=== PATIENT | female | born 1935 | race Caucasian/White ===

== ENCOUNTER → 2017-02-15 | Outpatient (CLI) | payer OTHER ==
--- NOTE | 2017-02-16 12:30 | MAMMOGRAPHY REPORT ---
UNILATERAL RIGHT DIGITAL SCREENING MAMMOGRAM TOMOSYNTHESIS WITH CAD: 02/15/2017 CLINICAL HISTORY: Asymptomatic. Personal history of breast cancer. TECHNIQUE: Breast tomosynthesis in addition to standard 2D mammography was performed. Current study was also evaluated with a Computer Aided Detection (CAD) system. Right CC and MLO 2-D and tomosynthe sis images were obtained. COMPARISON: Comparison is made to exams dated: 02/14/2016 mammogram, 02/10/2015 mammogram, 02/09/2014 m ammogram, 02/03/2013 mammogram, 02/01/2012 mammogram, and 01/29/2012 mammogram - [facility] enter. BREAST COMPOSITION: There are scattered areas of fibroglandular density in the right breast. FINDINGS: There are no suspicious masses, calcifications, or areas of architectural distortion noted in either breast. There has been no significant interval change compared to prior exams. Scattered benign-appearing calcifications are stable. IMPRESSION: ACR BI-RADS CATEGORY 2: BENIGN There is no mammographic evidence of malignancy in the right breast. A 1 year screening mammogram is recommended. The patient will receive written notification of the results. Approximately 10% of breast cancers are not detected with mammography. A negative mammographic report should not delay biopsy if a clinically suggestive mass is present. Ginny Garcia M.D. /:02/15/2017 15:07:46 Senior Php Web Developer: Kristin ROSENBERG(Walter)(M)(BD), [facility] letter sent: Normal 1/2 BI-RADS Code: ACR BI-RADS Category 2: Benign
== END | disposition home or self-care (01) ==
LOC: C.MAMM 10:20
PROVIDERS: ATTEND Family Medicine
DX: Z12.31 Encounter for screening mammogram for malignant neoplasm of breast (principal); Z08 Encounter for follow-up examination after completed treatment for malignant neoplasm; Z85.3 Personal history of malignant neoplasm of breast; Z90.12 Acquired absence of left breast and nipple

== ENCOUNTER 2020-02-23 06:12 | Inpatient (IN) ==
--- NOTE | 2020-02-19 09:05 | Anesthesiology Consultation ---
Date of Service February 19, 2020 Assessment & Plan (1) Encounter for pre-operative examination: COVID assessment: Travel/history reviewed. The patient is a low risk. Routine preop COVID testing was ordered, and the results are pending. Chart Review Chart Review: Acceptable Risk for Surgery and Patient NOT seen in Pre Admission Testing Consults Requested none History Surgery Operation Date: 02/23/20 10:00 Proposed Procedures p Right Laparoscopic Assisted Colon Resection - Eddie Villaseñor MD Height/Weight Height: 5 ft 6 in Weight: 83.915 kg Allergies Allergy/AdvReac Type Severity Reaction Status Date / Time No Known Allergies Allergy Verified 02/17/20 15:18 Medications Home Medications Medication Instructions Recorded Confirmed Last Taken atorvastatin 40 mg PO QAM 02/17/20 02/17/20 Unknown cyclosporine [Restasis] 1 drp OPHTHALMIC (EYE) Q12H 02/17/20 02/17/20 Unknown furosemide 40 mg PO QAM 02/17/20 02/17/20 Unknown losartan 50 mg PO QAM 02/17/20 02/17/20 Unknown metoprolol succinate 25 mg PO BID 02/17/20 02/17/20 Unknown potassium chloride 10 meq PO DAILY 02/17/20 02/17/20 Unknown warfarin 2.5 mg PO UD 02/17/20 02/17/20 Unknown Past Medical History Medical History Atrial fibrillation takes warfarin Colon cancer needs surgical treatment Depression Hx of breast cancer 06/1999 chemo and surgical treatment Hyperlipidemia Hypertension Urine incontinence Past Surgical History Surgical History History of knee replacement right and left Hx of colonoscopy Hx of hysterectomy Hx of mastectomy Social History Smoking Status: Never smoker Do You Dip or Chew Tobacco: No Hx Alcohol Use: No Hx Substance Use: No substance use type: does not use Testing Laboratory Results 01/27/20 WBC 8.5 Hgb 14.3 platelet 239 Na 143 K 3.9 CL 102 CO2 28 BUN 16 Cr 1.3 glucose 91 Electrocardiogram Date: 02/25/19 Findings: + AFIB @ (89 bpm) Echocardiogram Date: 02/19/18 The LV systolic function is normal LV cavity size is normal LV wall thickness is normal LA is mildly enlarged A trivial circumferential pericardial effusion is once again noted. Effusion is of non hemodynamic significance.
[~2020-02-23 06:12] MED LIST: LACTATED RINGER'S 1,000 ML IV SCH; cefOXitin 2,000 MG in DEXTROSE 5% 50 ML IV SCH
[2020-02-23 07:32] LABS: INR 1.2 (0.9-1.1); Partial Thromboplastin Ratio 1.1; Partial Thromboplastin Time 31.1 Seconds (21.0-31.0); Prothrombin Time 12.3 Seconds (9.0-12.0)
[2020-02-23] MEDS ORDERED: ePHEDrine sulfate 50 MG/ML AMP IV PRN (07:45)
[2020-02-23] MEDS ORDERED: HYDROmorphone INJ 2 MG/ML SYR/VIAL IV PRN (07:45)
[2020-02-23] MEDS ORDERED: ATROPINE SULFATE 0.1 MG/ML 10ML SYR IV PRN (07:45)
[2020-02-23] MEDS ORDERED: ONDANSETRON INJ 2 MG/ML 2 ML VIAL IV PRN ×2 (07:45→13:51)
[2020-02-23] MEDS ORDERED: fentaNYL citrate 100 MCG/2 ML VIAL ONE ×2 (07:51→11:01)
--- NOTE | 2020-02-23 07:56 | History & Physical Bridge Note ---
Date of Service February 23, 2020 History & Physical Bridge Note I have examined the patient, reviewed the History & Physical and in the interval since the performance of the History & Physical I have noted the following changes of clinical significance: no changes noted
[2020-02-23] MEDS ORDERED: LIDOCAINE HCL 2% 2 ML VIAL/AMP(20MG/ML) INFIL ONE (07:57)
[2020-02-23] MEDS ORDERED: MIDAZOLAM HCL 1 MG/ML 2ML VIAL ONE (07:57)
[2020-02-23] MEDS ORDERED: PROPOFOL IV EMULSION 10 MG/ML 20 ML VIAL IV ONE (07:57)
[2020-02-23] MEDS ORDERED: ROCURONIUM BROMIDE 10 MG/ML 5 ML VIAL IV ONE ×5 (07:57→07:58)
[2020-02-23] MEDS ORDERED: BUPIVACAINE 0.5 % 5 MG/1 ML MPF 30ML VIAL ONE (08:52)
[2020-02-23] MEDS ORDERED: DEXAMETHASONE SOD INJ 4 MG/ML VIAL ONE (09:41)
[2020-02-23] MEDS ORDERED: ONDANSETRON INJ 2 MG/ML 2 ML VIAL ONE (09:41)
[2020-02-23] MEDS ORDERED: PHENYLEPHRINE HCL 10 MG/ML VIAL ONE (09:41)
[2020-02-23] MEDS ORDERED: GLYCOPYRROLATE 0.2 MG/ML VIAL ONE (11:18)
[2020-02-23] MEDS ORDERED: NEOSTIGMINE METHYLSULFATE 5 MG/5 ML SYR ONE (11:18)
--- NOTE | 2020-02-23 12:00 | Post Operative Brief Note ---
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
[2020-02-23] MEDS: fentaNYL citrate 100 MCG/2 ML VIAL IV PRN ×4 (12:23→12:38)
--- NOTE | 2020-02-23 13:37 | Anesthesiology Progress Note ---
Date of Service February 23, 2020 Anesthesia Post Procedure Vital Signs Vital Signs: Temp Pulse Pulse Resp BP Pulse Ox 02/23/20 13:05 839 H 16 110/84 02/23/20 12:55 94 H 16 122/78 96 02/23/20 12:45 36.7 C 91 H 16 101/77 96 02/23/20 12:35 95 H 16 124/80 96 02/23/20 12:25 95 H 16 139/86 98 02/23/20 12:15 36.4 C L 106 H 16 132/96 100 02/23/20 07:03 36.5 C 95 H 18 154/94 H 98 Transfer of Care Handoff Completed per policy Notes Mental Status: alert / awake / arousable and participated in evaluation Patient Amnestic to Procedure: Yes Nausea / Vomiting: adequately controlled Pain: adequately controlled Airway Patency, RR, SpO2: stable & adequate BP & HR: stable & adequate Hydration State: stable & adequate Anesthetic Complications: no major complications apparent and Pt Satisfied with anesthetic care
[2020-02-23] MEDS ORDERED: MoRPHine SULFATE 2 MG/ML CARP IV PRN (14:01)
[2020-02-23] MEDS: D5W AND 1/2NSS + 20MEQ KCL 20 MEQ/1,000 ML BAG IV SCH ×2 (14:44→23:56)
[2020-02-23 14:56] LABS: Est GFR (African American) 25.1; Est GFR (Non-African American) 21.6
--- NOTE | 2020-02-23 19:34 | Operative Report (OR) ---
DATE OF OPERATION: 02/23/2020 PREOPERATIVE DIAGNOSIS: Carcinoma of the colon. POSTOPERATIVE DIAGNOSIS: Carcinoma of the colon. PROCEDURE: Laparoscopic assisted right colectomy. SURGEON: Eddie Villaseñor MD. LEAD RUBY ON RAILS DEVELOPER: Selene Le PA-C. FINDINGS: The tumor was palpable that had been marked and was found to be at the hepatic flexure. There were some enlarged lymph nodes in the mesentery that were all mildly enlarged. There did not appear to be extension of the mass through the colon grossly. There were significant adhesions of the omentum to the anterior abdominal wall in the midline of the upper abdomen and in the right subcostal region. There were adhesions to the liver and the gallbladder bed where the previous cholecystectomy had been performed. The liver was of normal size and contour. No gross lesions seen. The remainder of the colon was normal. TECHNIQUE: The patient was given general anesthesia and the area was prepped and draped in the usual sterile fashion. The skin superior to the umbilicus and subcutaneous tissue were anesthetized with 1% Xylocaine without epinephrine. Skin incision was made just above the umbilicus vertically. This was carried down through the subcutaneous tissue to the fascia, which was grasped with 2 Naresh clamps and incised between. The peritoneum was identified, incised, and the introducer was placed bluntly. The abdomen was then insufflated to a pressure of 15 mmHg with carbon dioxide. The two 5 mm introducers on the left side, one in the upper abdomen, one in the lower abdomen were placed. The skin at those sites was anesthetized. Skin incisions were made and the introducers were placed under direct vision. Eventually, a third introducer was placed in the right lower quadrant, but prior to that, the extensive adhesions of the omentum to the anterior abdominal wall were taken down. This was done with sharp dissection until the anterior abdominal wall was clear. There were adhesions then of the omentum to the undersurface and to the right side of the falciform ligament, which were also taken down, which freed the entire omentum. I then attempted to identify the inked portion of the colon. This was not readily apparent at first. I began at the cecum and worked superiorly, but the omentum was covering the adhesion area to the gallbladder bed. I then worked from what was visible on the right side of the transverse colon towards the left side and around the splenic flexure and down the left colon, but did not see any inked colon. I then mobilized the omentum and the colon away from the liver using the LigaSure device to divide the adhesions. That allowed me to place inferior traction on the colon. I then was able to begin in the mid transverse colon and I established a plane between the omentum, dividing the gastrocolic ligament and working then from medial to lateral towards the right, the omentum off. Once I did that, I was then able to identify the ink at the hepatic flexure. I was then able to establish continuing dissection from the colon wall posteriorly towards the mesentery and divided adhesions from the omentum. I then worked and was able to identify the duodenum. I was able to separate the mesentery of the colon away from the duodenum and worked around the hepatic flexure down towards the cecum dividing the line of Toldt and mobilizing the colon medially. Once that was accomplished, I then worked towards the medial aspect identifying the colon wall and the transverse mesocolon. Once that was accomplished, I was able to separate the appendix away from the lateral abdominal wall. I then worked down and divided some of the attachments of the terminal ileum to the posterior lateral abdominal wall on the right, but these adhesions were quite thick. At that point, I felt that I had enough of the colon mobilized. I then performed the vertical midline incision that was limited in the upper abdomen using the superior umbilical incision. I carried that dissection posteriorly through the subcutaneous tissue to the fascia and opened the fascia in the midline. I then opened the peritoneum and the abdomen was entered. All of the introducers were removed. I then was able to place medial traction on the well mobilized right colon and was then able to identify the attachments of the small bowel to the lateral abdominal wall and I was able to divide those using cautery. That completely mobilized the mesentery and the bowel wall of the terminal ileum and I was able to deliver that through the incision. I then chose sites for division of the small bowel and the colon. I the mesentery away from those sites and divided the bowel from the mesenteric to the antimesenteric border using the MEL stapler. The intervening portion of the mesentery at the base was divided using the LigaSure except for the main vessels, which were divided between Ramona clamps and ligated with 2-0 Vicryl ties and a 2-0 silk suture LigaSure. Once the entire mesentery had been divided, the specimen was delivered and sent to pathology. The area of dissection was inspected for bleeding and none was seen. A functional end-to-end anastomosis was then performed. The small bowel wall was approximated to the colon wall using interrupted 3-0 silk sutures. The antimesenteric border of each staple line was removed and a limb of the MEL stapler was placed into each lumen of the bowel. The bowel was approximated, the stapler fired and anastomosis was completed. The common opening was then closed with a TA stapler, making sure to incorporate serosa on all sides of that staple line. The additional stay sutures on the anterior surface of the anastomosis were placed. The mesenteric opening was closed with a running 2-0 Vicryl. Prior to the anastomosis being performed, it was assured that there was no twisting of the mesentery. The abdomen was then irrigated and the irrigation was removed. The anastomosis was placed back into its anatomic position and then it was covered with omentum. The liver was palpated with no abnormal findings. The NGT was in good position. The fascia of the vertical midline incision was closed with running 0 PDS. The wound was irrigated. The skin was closed with mary ellen. The skin of the three 5 mm introducers was closed with mary ellen. The estimated blood loss was 50 mL. Sponge, needle and instrument counts were correct prior to closure. The physician lead dental assistant was present during the entire case and helped with access to the abdomen, retraction during the laparoscopic portion of the case as well as management of the camera. After opening, she was helpful in retraction and in performance of the anastomosis and during closure. I attest to the content of the Intraoperative Record and any orders documented therein. Any exceptions are noted below. WESLEY
[2020-02-23] MEDS: METOPROLOL SUCC 25MG EXT REL TAB PO SCH (19:47)
[2020-02-24 05:41] LABS: Hematocrit (blood only) 37.4 % (37-47); Hemoglobin 12.1 g/dL (12.0-16.0); Immature Granulocytes # (auto) 0.03 K/uL (0.00-0.02); Immature Granulocytes % (auto) 0.2 %; Lymphocytes # (auto) 0.78 K/uL (1.2-3.4); Lymphocytes % (auto) 6.4 %; Mean Corpuscular Hemoglobin 28.1 pg (25-34); Mean Corpuscular Hgb Conc 32.4 g/dL (32-36); Mean Corpuscular Volume 86.8 fL (80-100); Mean Platelet Volume 9.9 fL (7.4-10.4); Monocytes # (auto) 1.07 K/uL (0.11-0.59); Monocytes % (auto) 8.8 %; Neutrophils # (auto) 10.29 K/uL (1.4-6.5); Neutrophils % (auto) 84.6 %; Platelet Count 223 K/uL (130-400); RDW Coefficient of Variation 14.6 % (11.5-14.5); RDW Standard Deviation 46.4 fL (36.4-46.3); Red Blood Count 4.31 M/uL (4.2-5.4); White Blood Count 12.17 K/uL (4.8-10.8)
[2020-02-24 06:26] LABS: BUN Creatinine Ratio 12.8 (10-20); Calcium 8.3 mg/dl (8.5-10.1); Creatinine Clr Calc Pharmacy 34.9 ml/min; Est GFR (African American) 41.5; Est GFR (Non-African American) 35.8; Potassium 4.5 mmol/L (3.5-5.1)
--- NOTE | 2020-02-24 07:03 | Surgery Progress Note ---
Date of Service February 24, 2020 Assessment & Plan (1) Colon cancer: Postoperative day 1 status post laparoscopic assisted right colectomy Stable Blood pressure now under control Having very little pain Peristalsis has not yet returned and will keep NG tube for today We will consult internal medicine for help with anticoagulation and hypertensive management Creatinine has returned back to baseline Subjective Postoperative day #1 status post laparoscopic assisted right colectomy Patient's abdomen is "sore" Denies nausea and vomiting No bowel movement or flatus as yet Physical Exam Gastrointestinal (Abdomen): Inspection/Auscultation: abdomen not distended Percussion/Palpation: + abdomen tender (Incisional only) and abdomen soft Peristalsis has not returned as yet Results & Data Vital Signs (Past 12 Hours) Vital Signs Temp Pulse Resp BP Pulse Ox 02/24/20 03:20 36.5 C 83 14 121/76 98 02/23/20 23:04 36.5 C 89 14 132/74 97 02/23/20 21:09 91 H 18 160/83 H 98 02/23/20 19:21 36.7 C 88 18 163/92 H 98 Laboratory Results 02/24/20 02/24/20 02/23/20 Range/Units 05:15 05:15 14:14 WBC 12.17 H (4.8-10.8) K/uL RBC 4.31 (4.2-5.4) M/uL Hgb 12.1 (12.0-16.0) g/dL Hct 37.4 (37-47) % MCV 86.8 (80-100) fL MCH 28.1 (25-34) pg MCHC 32.4 (32-36) g/dL RDW Std Deviation 46.4 H (36.4-46.3) fL RDW Coeff of Ingrid 14.6 H (11.5-14.5) % Plt Count 223 (130-400) K/uL MPV 9.9 (7.4-10.4) fL Immature Gran % (Auto) 0.2 % Neut % (Auto) 84.6 % Lymph % (Auto) 6.4 % Republic % (Auto) 8.8 % Eos % (Auto) 0.0 % Baso % (Auto) 0.0 % Neut # (Auto) 10.29 H (1.4-6.5) K/uL Lymph # (Auto) 0.78 L (1.2-3.4) K/uL Republic # (Auto) 1.07 H (0.11-0.59) K/uL Eos # (Auto) 0.00 (0-0.5) K/uL Baso # (Auto) 0.00 (0-0.2) K/uL Immature Gran # (Auto) 0.03 H (0.00-0.02) K/uL PT (9.0-12.0) Seconds INR (0.9-1.1) APTT (21.0-31.0) Seconds PTT Ratio Sodium 142 (136-145) mmol/L Potassium 4.5 (3.5-5.1) mmol/L Chloride 111 H (98-107) mmol/L Carbon Dioxide 25 (21-32) mmol/L Anion Gap 6.0 (3-11) BUN 18 (7-18) mg/dl Creatinine 1.37 H D 2.08 H (0.6-1.2) mg/dl Est Cr Clr Drug Dosing 34.9 23.0 ml/min Est GFR ( Amer) 41.5 25.1 Est GFR (Non-Af Amer) 35.8 21.6 BUN/Creatinine Ratio 12.8 (10-20) Glucose 157 H (70-99) mg/dl Calcium 8.3 L (8.5-10.1) mg/dl Blood Type Antibody Screen 02/23/20 02/23/20 Range/Units 06:58 06:57 WBC (4.8-10.8) K/uL RBC (4.2-5.4) M/uL Hgb (12.0-16.0) g/dL Hct (37-47) % MCV (80-100) fL MCH (25-34) pg MCHC (32-36) g/dL RDW Std Deviation (36.4-46.3) fL RDW Coeff of Ingrid (11.5-14.5) % Plt Count (130-400) K/uL MPV (7.4-10.4) fL Immature Gran % (Auto) % Neut % (Auto) % Lymph % (Auto) % Republic % (Auto) % Eos % (Auto) % Baso % (Auto) % Neut # (Auto) (1.4-6.5) K/uL Lymph # (Auto) (1.2-3.4) K/uL Republic # (Auto) (0.11-0.59) K/uL Eos # (Auto) (0-0.5) K/uL Baso # (Auto) (0-0.2) K/uL Immature Gran # (Auto) (0.00-0.02) K/uL PT 12.3 H (9.0-12.0) Seconds INR 1.2 H (0.9-1.1) APTT 31.1 H (21.0-31.0) Seconds PTT Ratio 1.1 Sodium (136-145) mmol/L Potassium (3.5-5.1) mmol/L Chloride (98-107) mmol/L Carbon Dioxide (21-32) mmol/L Anion Gap (3-11) BUN (7-18) mg/dl Creatinine (0.6-1.2) mg/dl Est Cr Clr Drug Dosing ml/min Est GFR ( Amer) Est GFR (Non-Af Amer) BUN/Creatinine Ratio (10-20) Glucose (70-99) mg/dl Calcium (8.5-10.1) mg/dl Blood Type A Positive Antibody Screen NEGATIVE
[2020-02-24] MEDS: ENOXAPARIN INJ 30 MG/0.3 ML SYR SQ SCH (08:15)
[2020-02-24] MEDS: D5W AND 1/2NSS + 20MEQ KCL 20 MEQ/1,000 ML BAG IV SCH ×2 (08:16→17:51)
[2020-02-24] MEDS: METOPROLOL SUCC 25MG EXT REL TAB PO SCH ×2 (08:16→20:43)
--- NOTE | 2020-02-24 09:50 | Consultation ---
Date of Consultation February 24, 2020 Assessment & Plan (1) Colon cancer: Status post laparoscopic assisted right colectomy by Dr. Villaseñor POD #1 EBL 50 mL Tolerated procedure well Pain/wound management per surgery Activity and therapy as directed by surgery NG tube currently in place, continue n.p.o. status Encourage incentive spirometry H&H 12.1 and 37.4 today, monitor (2) Atrial fibrillation: Rate controlled with metoprolol Anticoagulated with warfarin -currently on hold given postop Home regimen is 2.5 mg daily -will resume today (3) Hypertension: Blood pressure controlled this morning, 113/76 Continue metoprolol hold losartan and lasix today, re evaluate later today and in a.m. to resume (4) Leukocytosis: likely reactive in settting of post op state afebrile, asymptomatic monitor (5) Hyperlipidemia: on statin as outpt (6) CKD (chronic kidney disease), stage III: Baseline creatinine 1.3 On 02/22 creatinine 2.08, improved to 1.37 this morning Monitor, avoid nephrotoxic agents (7) DVT prophylaxis: SCD/teds, Lovenox Resume warfarin today, 2.5mg daily Follow INR, D/C Lovenox when INR > 2.0 Disposition: Per primary Follow-up: PCP Dr. Pelayo upon discharge Patient was seen and examined in collaboration with Dr. Mendez, please see addendum Thank you for this consultation. We will follow the patient with you during their hospital stay. You can reach a member of the [facility] Team 12/03 via pager @ [phone]. Attending Addendum: care coordinated with FROYLAN Marquez please refer to her notes for full details, I agree with her notes patient seen and examined, records reviewed by myself as well on exam, patient seen sitting up in bed, doing word search puzzle Comfortable, not in distress States she feels fine overall Just sore on her abdomen Denies chest pain, palpitations, dizziness, nausea vomiting no other symptoms VS noted and reviewed oriented x3 , not in distress, speaks in sentences with no effort nor accessory muscle use normal rate, irregularly irregular rhythm, no murmurs clear breath sounds bilaterally non distended, soft, nontender, dressings in place, no bleeding or discharge no bipedal edema, erythema, warmth no neuro deficits WBC 12.17 Hg 12.1 Crea 1.37 ASSESSMENT AND PLAN 84-year-old female with history of atrial fibrillation Coumadin, hypertension, CKD stage III, and other problems noted above presenting with right colectomy Status post right colectomy Follow-up pathology reports Stable overall Monitor hemoglobin Chronic atrial fibrillation on Coumadin INR 1.2 Continue usual Coumadin regimen On Lovenox subcutaneous daily for DVT prophylaxis Hypertension Hold losartan and hydrochlorothiazide to prevent hypotension Monitor blood pressure closely Kash Mendez MD other diagnoses and plan of care as per Kash Mendez MD History of Present Illness Requesting Physician: Dr. Villaseñor Reason for Consultation: Hypertension management of anticoagulation. Attending Physician: Eddie Villaseñor MD History of Present Illness This is an 84-year-old female who has significant PMH of persistent atrial fibrillation anticoagulated on warfarin, HTN, HLD, CKD stage III, history of left breast CA status post radical mastectomy, GERD who underwent elective right hemicolectomy secondary to colon mass on 02/23/2020. She tolerated the procedure well. We have been consulted for management of hypertension, CKD stage III and anticoagulation management. In regards to her atrial fibrillation she takes Coumadin 2.5 mg daily. Her last dose was 5 days prior to surgery. Further she takes metoprolol for rate control. Currently she complains of some abdominal incisional tenderness but otherwise feels well. She slept well last evening. She currently denies any fever, chills, sweats, lighth eadedness, dizziness, chest pain, shortness breath, cough, nausea, vomiting. She has not passed flatus. She currently has NG tube in place and is tolerating okay. is at bedside. Allergies Allergy/AdvReac Type Severity Reaction Status Date / Time No Known Allergies Allergy Verified 02/23/20 06:56 Home Medications Home Medications Medication Instructions Recorded Confirmed Type atorvastatin [Lipitor] 40 mg PO QAM 02/17/20 02/23/20 History cyclosporine [Restasis] 1 drp OPHTHALMIC (EYE) Q12H 02/17/20 02/23/20 History furosemide [Lasix] 40 mg PO QAM 02/17/20 02/23/20 History losartan [Cozaar] 50 mg PO QAM 02/17/20 02/23/20 History metoprolol succinate 25 mg PO BID 02/17/20 02/23/20 History potassium chloride 10 meq PO DAILY 02/17/20 02/23/20 History warfarin 2.5 mg PO UD 02/17/20 02/23/20 History Patient History Medical History Atrial fibrillation takes warfarin Colon cancer needs surgical treatment Colon cancer Depression Hx of breast cancer 06/1999 chemo and surgical treatment Hyperlipidemia Hypertension Urine incontinence Surgical History History of knee replacement right and left Hx of colonoscopy Hx of hysterectomy Hx of mastectomy S/P partial colectomy Right Family History Mother Coronary heart disease Father CHF (congestive heart failure) Brother Valvular heart disease Social History Preferred Language: Turkmen Communication Ability: Effective Lead Oracle Developer Required: No Beliefs That Will Affect Care: None marital status: Current Living Situation: Spouse Other Information That Helps Us Care for You: No Feels Safe at Home: Yes Safety Concerns: Feels Safe At This Time Smoking Status: Never smoker Do You Dip or Chew Tobacco: No ; Second Hand Exposure: No ; Tobacco Cessation Education Requested by Patient: No Hx Alcohol Use: No Hx Substance Use: No Review of Systems Review of Systems: All systems reviewed & are unremarkable except as noted in HPI & below Physical Exam Physical Exam: Constitutional: WD/WN, elderly, female, vitals as above, NAD, sitting up in bed, pleasant, conversing easily Head: Normocephalic, Atraumatic Eyes: PERRL, conjunctivae normal, anicteric sclerae ENMT: external ear and nose normal, oropharynx normal Neck: trachea midline, no thyromegaly normal visual inspection Respiratory: normal respiratory effort, lungs clear to auscultation, no wheeze, rales, rhonchi. Normal insp/exp effort, no accessory muscle use Cardiovascular: Irregular rate, irregular rhythm, 1/6 ISAAC best noted RUSB, SCD/teds in place, no edema Vessels: no JVD or carotid bruit Chest: normal inspection of chest Abdomen: Abdominal dressings CDI, absent bowel sounds, soft, nontender, no hepatosplenomegaly Musculoskeletal: no cyanosis or clubbing, extremities motor strength 5/5 Skin: no rashes, warm and dry normal turgor Neurologic: PERRL, EOMI, accommodation nl, no face palsy, no dysarthria CN's II-XI intact bilaterally and moves all extremities Psychiatric: A+Ox3, euthymic affect Lymphatic: no cervical or axillary lymphadenopathy : deferred Results & Data ([facility]) Vital Signs (Past 12 Hours) Vital Signs Temp Pulse Resp BP Pulse Ox 02/24/20 07:57 36.6 C 85 18 113/76 97 02/24/20 03:20 36.5 C 83 14 121/76 98 02/23/20 23:04 36.5 C 89 14 132/74 97 Laboratory Results Short CBC 02/23/20 02/24/20 02/24/20 Range/Units 14:14 05:15 05:15 WBC 12.17 H (4.8-10.8) K/uL Hgb 12.1 (12.0-16.0) g/dL Hct 37.4 (37-47) % Plt Count 223 (130-400) K/uL Creatinine 2.08 H 1.37 H D (0.6-1.2) mg/dl BMP 02/23/20 02/24/20 14:14 05:15 Sodium 142 Potassium 4.5 Chloride 111 H Carbon Dioxide 25 BUN 18 Creatinine 2.08 H 1.37 H D Glucose 157 H Calcium 8.3 L Diagnostic Findings Echocardiogram done 02/2018 revealed LVEF WNL, diastolic dysfunction Preoperative COVID-19 testing done 02/18/2020 which was negative Medications Administered Enoxaparin Sodium (Lovenox) 30 mg SQ Q24H JAYA Stop: 03/25/20 07:59 Last Admin: 02/24/20 08:15 Dose: 30 mg Documented by: [id number] Potassium Chloride/Dextrose/Sod Cl (D5w And 1/2nss + 20meq Kcl) 20 meq in 1,000 mls @ 110 mls/hr IV .Q9H6M JAYA Stop: 03/24/20 13:50 Last Admin: 02/24/20 08:16 Dose: 110 mls/hr Documented by: [id number] Infusion: 02/24/20 08:16 Dose: 110 mls/hr Documented by: [id number] Admin: 02/23/20 23:56 Dose: 110 mls/hr Documented by: [id number] Infusion: 02/23/20 23:50 Dose: 110 mls/hr Documented by: [id number] Admin: 02/23/20 14:44 Dose: 110 mls/hr Documented by: [id number] Metoprolol Succinate (Toprol Xl) 25 mg PO BID JAYA Stop: 03/24/20 20:59 Last Admin: 02/24/20 08:16 Dose: 25 mg Documented by: [id number] Admin: 02/23/20 19:47 Dose: 25 mg Documented by: [id number] Morphine Sulfate (Morphine Sulfate) 2 mg IV Q1H PRN PRN Reason: Pain Stop: 03/08/20 14:00 Last Admin: 02/23/20 18:27 Dose: 2 mg Documented by: [id number] Discontinued Medications Bupivacaine HCl (Marcaine 0.5% Mpf) Confirm Administered Dose 30 ml .ROUTE .STK- MED ONE Stop: 02/23/20 08:53 Last Admin: 02/23/20 09:23 Dose: 30 ml Documented by: [id number] Cefoxitin Sodium (Mefoxin) Confirm Administered Dose 1,000 mg .ROUTE .STK-MED ONE Stop: 02/23/20 10:51 Last Admin: 02/23/20 14:11 Dose: Not Given Documented by: [id number] Fentanyl Citrate (Fentanyl Citrate) 50 mcg IV Q5M PRN PRN Reason: PACU Use Only-Pain Stop: 02/23/20 15:46 Last Admin: 02/23/20 12:38 Dose: 50 mcg Documented by: [id number] Admin: 02/23/20 12:33 Dose: 50 mcg Documented by: [id number] Admin: 02/23/20 12:28 Dose: 50 mcg Documented by: [id number] Admin: 02/23/20 12:23 Dose: 50 mcg Documented by: [id number] Lactated Ringer's (Lr) 1,000 mls @ 15 mls/hr IV .Q24H JAYA Stop: 02/24/20 05:59 Last Infusion: 02/23/20 08:12 Dose: 0 mls/hr Documented by: [id number] Admin: 02/23/20 07:26 Dose: 15 mls/hr Documented by: [id number] Cefoxitin Sodium 2,000 mg/ (Dextrose) 60 mls @ 120 mls/hr IV PREOP JAYA Stop: 02/23/20 06:29 Last Infusion: 02/23/20 08:38 Dose: 0 mls/hr Documented by: [id number] Admin: 02/23/20 08:08 Dose: 120 mls/hr Documented by: [id number] ECG Rate (beats per minute): 89 Rhythm: atrial fibrillation
[2020-02-24] MEDS: WARFARIN SOD 2.5 MG TAB PO SCH (17:02)
[2020-02-25] MEDS ORDERED: NITROGLYCERIN SL 0.4 MG/TAB TAB SL STA (00:23)
[2020-02-25] MEDS: METOPROLOL SUCC 25MG EXT REL TAB PO SCH ×2 (00:51→20:47)
[2020-02-25 01:02] LABS: Basophils # (auto) 0.02 K/uL (0-0.2); Basophils % (auto) 0.2 %; Eosinophils # (auto) 0.02 K/uL (0-0.5); Eosinophils % (auto) 0.2 %; Hematocrit (blood only) 35.8 % (37-47); Hemoglobin 11.8 g/dL (12.0-16.0); Immature Granulocytes # (auto) 0.04 K/uL (0.00-0.02); Immature Granulocytes % (auto) 0.4 %; Lymphocytes # (auto) 1.38 K/uL (1.2-3.4); Lymphocytes % (auto) 12.1 %; Mean Corpuscular Hemoglobin 28.9 pg (25-34); Mean Corpuscular Volume 87.7 fL (80-100); Mean Platelet Volume 9.5 fL (7.4-10.4); Monocytes # (auto) 0.98 K/uL (0.11-0.59); Monocytes % (auto) 8.6 %; Neutrophils # (auto) 8.96 K/uL (1.4-6.5); Neutrophils % (auto) 78.5 %; Platelet Count 201 K/uL (130-400); RDW Standard Deviation 47.9 fL (36.4-46.3); Red Blood Count 4.08 M/uL (4.2-5.4)
[2020-02-25 01:14] LABS: INR 1.3 (0.9-1.1); Partial Thromboplastin Ratio 1.2; Partial Thromboplastin Time 32.7 Seconds (21.0-31.0); Prothrombin Time 13.1 Seconds (9.0-12.0)
[2020-02-25 01:28] LABS: Alanine Aminotransferase 26 U/L (12-78); Albumin Level 2.7 gm/dl (3.4-5.0); Aspartate Aminotransferase 24 U/L (15-37); BUN Creatinine Ratio 10.2 (10-20); Blood Urea Nitrogen 14 mg/dl (7-18); Calcium 8.5 mg/dl (8.5-10.1); Carbon Dioxide 27 mmol/L (21-32); Chloride 111 mmol/L (98-107); Creatinine Clr Calc Pharmacy 35.1 ml/min; Est GFR (African American) 41.9; Est GFR (Non-African American) 36.1; Glucose 134 mg/dl (70-99); Lipase 52 U/L (73-393); Magnesium 1.9 mg/dl (1.8-2.4); Potassium 4.3 mmol/L (3.5-5.1); Sodium 141 mmol/L (136-145)
[2020-02-25 01:32] LABS: Albumin Globulin Ratio 0.9 (0.9-2); Alkaline Phosphatase 96 U/L (45-117); Bilirubin,Total 0.8 mg/dl (0.2-1); Globulin 3.1 gm/dl (2.5-4.0); Total Protein 5.8 gm/dl (6.4-8.2); Troponin I < 0.015 ng/ml (0-0.045)
--- NOTE | 2020-02-25 07:03 | XRay Report ---
XR chest 1V portable CLINICAL HISTORY: low o2 COMPARISON STUDY: No previous studies for comparison. FINDINGS: Tip of the nasogastric tube is below the lower aspect of this image but at least within a b tara of the stomach there are cholecystectomy clips. There are skin mary ellen within the lower abdomen. The left axillary surgical clips. Note is made of cardiomegaly. There is no evidence for overt pulmon gladis edema. There are mild bibasilar opacities. Degenerative changes of the bilateral sternoclavicular joints are incidentally noted. Old right rib fractures are present. IMPRESSION: 1. Bibasilar opacities that favor atelectasis. An infectious process could appear similar but is cons idered less likely. 2. Cardiomegaly. No evidence for overt pulmonary edema. ACT 112: Negative or not required by law. Electronically signed by: Karlos Palacio M.D. 02/25/2020 7:02 AM
--- NOTE | 2020-02-25 07:39 | Surgery Progress Note ---
Date of Service February 25, 2020 Assessment & Plan (1) Colon cancer: Postoperative day 2 status post laparoscopic assisted right colectomy - avss - leukocytosis improved to 11K - pain controlled - no return of bowel function but peristalsis has returned - minimal NGT output overnight Plan: Discontinue NGT Start clear liquids, take slowly Will add PO Percocet and Tylenol as needed for pain continue PO home meds as per medicine service PT/OT consults SCDs for DVT prophylaxis Incentive spirometry increase activity as tolerated Dr. Villaseñor has seen and examined pt, agrees with above. Subjective abdominal pain still present, controlled was out of bed three times yesterday not passing gas or bowel movements yet no n/v Physical Exam Constitutional: WD/WN, vitals as above no acute distress and not ill appearing Respiratory: normal respiratory effort; no respiratory distress Gastrointestinal (Abdomen): Inspection/Auscultation: abdomen normal to inspection; abdomen not distended Percussion/Palpation: abdomen soft; abdomen nontender, no guarding and abdomen not rigid NGT: light bilious output in canister Skin: no rashes, warm and dry + incision (clean/dry/intact/mary ellen intact) Psychiatric: A+Ox3, euthymic affect Results & Data Vital Signs (Past 12 Hours) Vital Signs Temp Pulse Resp BP Pulse Ox 02/25/20 07:06 36.8 C 88 20 124/80 97 02/25/20 00:16 101 H 20 125/81 02/24/20 22:35 36.6 C 93 H 16 143/89 H 91 02/24/20 20:39 85 16 141/97 H 98 Laboratory Results 02/25/20 02/25/20 02/25/20 Range/Units 00:51 00:51 00:51 WBC 11.40 H (4.8-10.8) K/uL RBC 4.08 L (4.2-5.4) M/uL Hgb 11.8 L (12.0-16.0) g/dL Hct 35.8 L (37-47) % MCV 87.7 (80-100) fL MCH 28.9 (25-34) pg MCHC 33.0 (32-36) g/dL RDW Std Deviation 47.9 H (36.4-46.3) fL RDW Coeff of Ingrid 15.0 H (11.5-14.5) % Plt Count 201 (130-400) K/uL MPV 9.5 (7.4-10.4) fL Immature Gran % (Auto) 0.4 % Neut % (Auto) 78.5 % Lymph % (Auto) 12.1 % [place] % (Auto) 8.6 % Eos % (Auto) 0.2 % Baso % (Auto) 0.2 % Neut # (Auto) 8.96 H (1.4-6.5) K/uL Lymph # (Auto) 1.38 (1.2-3.4) K/uL [place] # (Auto) 0.98 H (0.11-0.59) K/uL Eos # (Auto) 0.02 (0-0.5) K/uL Baso # (Auto) 0.02 (0-0.2) K/uL Immature Gran # (Auto) 0.04 H (0.00-0.02) K/uL PT 13.1 H (9.0-12.0) Seconds INR 1.3 H (0.9-1.1) APTT 32.7 H (21.0-31.0) Seconds PTT Ratio 1.2 Sodium 141 (136-145) mmol/L Potassium 4.3 (3.5-5.1) mmol/L Chloride 111 H (98-107) mmol/L Carbon Dioxide 27 (21-32) mmol/L Anion Gap 3.0 (3-11) BUN 14 (7-18) mg/dl Creatinine 1.36 H (0.6-1.2) mg/dl Est Cr Clr Drug Dosing 35.1 ml/min Est GFR ( Amer) 41.9 Est GFR (Non-Af Amer) 36.1 BUN/Creatinine Ratio 10.2 (10-20) Glucose 134 H (70-99) mg/dl Calcium 8.5 (8.5-10.1) mg/dl Magnesium 1.9 (1.8-2.4) mg/dl Total Bilirubin 0.8 (0.2-1) mg/dl AST 24 (15-37) U/L ALT 26 (12-78) U/L Alkaline Phosphatase 96 (45-117) U/L Troponin I < 0.015 (0-0.045) ng/ml Total Protein 5.8 L (6.4-8.2) gm/dl Albumin 2.7 L (3.4-5.0) gm/dl Globulin 3.1 (2.5-4.0) gm/dl Albumin/Globulin Ratio 0.9 (0.9-2) Lipase 52 L (73-393) U/L
[2020-02-25] MEDS: ENOXAPARIN INJ 30 MG/0.3 ML SYR SQ SCH (09:22)
--- NOTE | 2020-02-25 10:30 | Hospitalist Progress Note ---
Date of Service February 25, 2020 Assessment & Plan (1) Colon cancer: Status post laparoscopic assisted right colectomy by Dr. Villaseñor POD #2 Pain/wound management per surgery Pain appear well controlled Activity and therapy as directed by surgery Currently on clear diet Monitor tolerance Hb stable (2) Atrial fibrillation: Persistent Afib Rate controlled with metoprolol Warfarin resumed yesterday at home dose of 2.5 mg daily INR is 1.3 today Currently on lovenox daily for now (3) Hypertension: Well controlled Continue metoprolol Continue to hold losartan and lasix for now Plan to resume losartan if BP starts going up since GERARD is resolved (4) Leukocytosis: Likely reactive in settting of post op state Afebrile, asymptomatic Currently improving (5) Hyperlipidemia: Continue statin (6) CKD (chronic kidney disease), stage III: GERARD on CKD3 on admission GERARD now resolved Baseline creatinine 1.3 On 02/22 creatinine 2.08, now 1.36 this morning Monitor Cr Avoid nephrotoxic agents (7) DVT prophylaxis: SCD/teds, Lovenox Continue warfarin 2.5mg daily Follow INR, D/C Lovenox when INR > 2.0 Thank you for this consultation. We will follow the patient with you during their hospital stay. You can reach a member of the [facility] Hospitalist Team 12/03 via pager @ [phone]. Admission and Anticipated Discharge Date Admission Date: February 23, 2020 Subjective Patient seen and examined Patient reports no pain this AM Denied any chest pain, shortness of breath, cough, palpitations, dizziness Denied any fevers, chills, nausea and vomiting Reported having breakfast this AM Has no had BM or passed flatus yet Denied any dysuria, frequency, urgency, hematuria Physical Exam Constitutional: + well hydrated; no acute distress Elderly woman Eyes: PERRL, conjunctivae normal, anicteric sclerae ENMT: external ear and nose normal, oropharynx normal Respiratory: normal respiratory effort, lungs clear to auscultation Cardiovascular: Irregularly irregular pulse, S1-2, no pedal edam Gastrointestinal (Abdomen): Clean surgical mary ellen No obvious drainage No tenderness Hypoactive bowel sounds Musculoskeletal: Extremities: no cyanosis No pedal edema Neurologic: PERRL, EOMI, accommodation nl, no face palsy, no dysarthria Psychiatric: A+Ox3, euthymic affect Results & Data Results & Data ([facility]) Vital Signs (Past 12 Hours) Vital Signs Temp Pulse Resp BP Pulse Ox 02/25/20 07:06 36.8 C 88 20 124/80 97 02/25/20 00:16 101 H 20 125/81 02/24/20 22:35 36.6 C 93 H 16 143/89 H 91 Laboratory Results Laboratory Results - last 24 hr 02/25/20 02/25/20 02/25/20 00:51 00:51 00:51 WBC 11.40 H RBC 4.08 L Hgb 11.8 L Hct 35.8 L MCV 87.7 MCH 28.9 MCHC 33.0 RDW Std Deviation 47.9 H RDW Coeff of Ingrid 15.0 H Plt Count 201 MPV 9.5 Immature Gran % (Auto) 0.4 Neut % (Auto) 78.5 Lymph % (Auto) 12.1 [place] % (Auto) 8.6 Eos % (Auto) 0.2 Baso % (Auto) 0.2 Neut # (Auto) 8.96 H Lymph # (Auto) 1.38 [place] # (Auto) 0.98 H Eos # (Auto) 0.02 Baso # (Auto) 0.02 Immature Gran # (Auto) 0.04 H PT 13.1 H INR 1.3 H APTT 32.7 H PTT Ratio 1.2 Sodium 141 Potassium 4.3 Chloride 111 H Carbon Dioxide 27 Anion Gap 3.0 BUN 14 Creatinine 1.36 H Est Cr Clr Drug Dosing 35.1 Est GFR ( Amer) 41.9 Est GFR (Non-Af Amer) 36.1 BUN/Creatinine Ratio 10.2 Glucose 134 H Calcium 8.5 Magnesium 1.9 Total Bilirubin 0.8 AST 24 ALT 26 Alkaline Phosphatase 96 Troponin I < 0.015 Total Protein 5.8 L Albumin 2.7 L Globulin 3.1 Albumin/Globulin Ratio 0.9 Lipase 52 L
[2020-02-25] MEDS ORDERED: OXYCODONE/ACETAMINOPHEN 5mg/325mg TAB PO PRN (13:47)
[2020-02-25] MEDS ORDERED: ACETAMINOPHEN 325 MG TAB PO PRN (13:47)
[2020-02-25] MEDS: WARFARIN SOD 2.5 MG TAB PO SCH (15:20)
[2020-02-26 06:23] LABS: Hemoglobin 10.4 g/dL (12.0-16.0); Mean Corpuscular Hemoglobin 28.6 pg (25-34); Mean Corpuscular Hgb Conc 32.5 g/dL (32-36); Mean Corpuscular Volume 87.9 fL (80-100); Platelet Count 185 K/uL (130-400); RDW Coefficient of Variation 14.7 % (11.5-14.5); RDW Standard Deviation 47.5 fL (36.4-46.3); Red Blood Count 3.64 M/uL (4.2-5.4); White Blood Count 8.17 K/uL (4.8-10.8)
[2020-02-26 06:33] LABS: INR 1.5 (0.9-1.1); Prothrombin Time 15.1 Seconds (9.0-12.0)
[2020-02-26 07:00] LABS: BUN Creatinine Ratio 12.2 (10-20); Calcium 8.2 mg/dl (8.5-10.1); Creatinine Clr Calc Pharmacy 47.3 ml/min; Est GFR (Non-African American) 51.8; Potassium 4.1 mmol/L (3.5-5.1)
[2020-02-26] MEDS: METOPROLOL SUCC 25MG EXT REL TAB PO SCH ×2 (08:12→21:11)
[2020-02-26] MEDS: ENOXAPARIN INJ 30 MG/0.3 ML SYR SQ SCH (08:12)
--- NOTE | 2020-02-26 09:22 | Surgery Progress Note ---
Date of Service February 26, 2020 Assessment & Plan (1) Colon cancer: Postoperative day 3 status post laparoscopic assisted right colectomy - avss - leukocytosis resolved - postop pain minimal more soreness - no return of bowel function but peristalsis has returned Plan: path reviewed with patient, will need oncology consultation once discharged advance to full liquids, take slowly continue PO Percocet and Tylenol as needed for pain continue PO home meds as per medicine service PT/OT SCDs, Lovenox for DVT prophylaxis Incentive spirometry increase activity as tolerated Dr. Villaseñor has seen and examined pt, agrees with above. Subjective feeling good, but I haven't had a bowel movement or passed gas tolerating clear liquids no n/v no pain just soreness worked with PT yesterday, walked hallway Physical Exam Constitutional: WD/WN, vitals as above no acute distress Respiratory: normal respiratory effort; no respiratory distress Gastrointestinal (Abdomen): Inspection/Auscultation: abdomen normal to inspection and normal bowel sounds; abdomen not distended Percussion/Palpation: abdomen soft; abdomen nontender, no guarding and abdomen not rigid Skin: no rashes, warm and dry + incision (clean/dry/intact/mary ellen intact) Psychiatric: A+Ox3, euthymic affect Results & Data Vital Signs (Past 12 Hours) Vital Signs Temp Pulse Resp BP Pulse Ox 02/26/20 07:10 36.7 C 98 H 16 130/79 95 Laboratory Results 02/26/20 02/26/20 02/26/20 Range/Units 05:56 05:56 05:56 WBC 8.17 (4.8-10.8) K/uL RBC 3.64 L (4.2-5.4) M/uL Hgb 10.4 L (12.0-16.0) g/dL Hct 32.0 L (37-47) % MCV 87.9 (80-100) fL MCH 28.6 (25-34) pg MCHC 32.5 (32-36) g/dL RDW Std Deviation 47.5 H (36.4-46.3) fL RDW Coeff of Ingrid 14.7 H (11.5-14.5) % Plt Count 185 (130-400) K/uL MPV 10.0 (7.4-10.4) fL PT 15.1 H (9.0-12.0) Seconds INR 1.5 H (0.9-1.1) Sodium 144 (136-145) mmol/L Potassium 4.1 (3.5-5.1) mmol/L Chloride 114 H (98-107) mmol/L Carbon Dioxide 25 (21-32) mmol/L Anion Gap 5.0 (3-11) BUN 12 (7-18) mg/dl Creatinine 1.01 (0.6-1.2) mg/dl Est Cr Clr Drug Dosing 47.3 ml/min Est GFR ( Amer) 60.0 Est GFR (Non-Af Amer) 51.8 BUN/Creatinine Ratio 12.2 (10-20) Glucose 82 (70-99) mg/dl Calcium 8.2 L (8.5-10.1) mg/dl Diagnostic Findings PATHOLOGY: FINAL DIAGNOSIS COLON, RIGHT AND PORTION TRANSVERSE; RESECTION: 1. INVASIVE ADENOCARCINOMA, MODERATELY DIFFERENTIATED. 2. TUMOR MEASURES 3.5 X 3.5 X 1 CM. 3. TUMOR INFILTRATES THROUGH ENTIRE THICKNESS OF BOWEL WALL INTO PERICOLIC SOFT TISSUE. 4. NO LYMPHOVASCULAR INVASION IDENTIFIED. 5. MARGINS OF RESECTION NEGATIVE FOR TUMOR. 6. LIPOMAS (2), ASCENDING COLON AND ILEOCECAL VALVE. 7. FIVE OF SEVENTEEN (5/17) PERICOLIC LYMPH NODES POSITIVE FOR METASTATIC CARCINOMA. 8. SINGLE SOFT TISSUE DEPOSIT IDENTIFIED. 9. VERMIFORM APPENDIX WITHOUT PATHOLOGIC CHANGE.
--- NOTE | 2020-02-26 12:58 | Hospitalist Progress Note ---
Date of Service February 26, 2020 Assessment & Plan (1) Colon cancer: Status post laparoscopic assisted right colectomy by Dr. Villaseñor POD #3 Pain/wound management per surgery Pain appear well controlled Activity and therapy as directed by surgery Currently on clear diet. Advance to full liquid Monitor tolerance and return of bowel function Hb dropped to 10.4. Possibly post surgical anemia + IVF (2) Atrial fibrillation: Persistent Afib Rate controlled with metoprolol Warfarin resumed post op at home dose of 2.5 mg daily INR is 1.5 today Currently on lovenox daily for now (3) Hypertension: Well controlled Continue metoprolol Continue to hold losartan and lasix for now Plan to resume losartan if BP starts going up since GERARD is resolved (4) Leukocytosis: Likely reactive in settting of post op state Afebrile, asymptomatic Resolved (5) Hyperlipidemia: Continue statin (6) CKD (chronic kidney disease), stage III: GERARD on CKD3 on admission GERARD now resolved Baseline creatinine 1.3 On 02/22 creatinine 2.08, now 1.01 this morning Monitor Cr Avoid nephrotoxic agents (7) DVT prophylaxis: SCD/teds, Lovenox Continue warfarin 2.5mg daily Follow INR, D/C Lovenox when INR > 2.0 [facility] via pager @ [phone]. Admission and Anticipated Discharge Date Admission Date: February 23, 2020 Subjective Patient seen and examined Reports no complaints this AM Denied any pain Yet to pass flatus or move bowel Tolerating po liquid diet Physical Exam Constitutional: + well hydrated; no acute distress Eyes: PERRL, conjunctivae normal, anicteric sclerae ENMT: external ear and nose normal, oropharynx normal Respiratory: normal respiratory effort, lungs clear to auscultation Gastrointestinal (Abdomen): Clean surgical site. No tenderness. Bowel sounds normoactive Musculoskeletal: Extremities: no cyanosis Neurologic: PERRL, EOMI, accommodation nl, no face palsy, no dysarthria Psychiatric: A+Ox3, euthymic affect Results & Data [facility] Vital Signs (Past 12 Hours) Vital Signs Temp Pulse Resp BP Pulse Ox 02/26/20 07:10 36.7 C 98 H 16 130/79 95 Laboratory Results Laboratory Results - last 24 hr 02/26/20 02/26/20 02/26/20 05:56 05:56 05:56 WBC 8.17 RBC 3.64 L Hgb 10.4 L Hct 32.0 L MCV 87.9 MCH 28.6 MCHC 32.5 RDW Std Deviation 47.5 H RDW Coeff of Ingrid 14.7 H Plt Count 185 MPV 10.0 PT 15.1 H INR 1.5 H Sodium 144 Potassium 4.1 Chloride 114 H Carbon Dioxide 25 Anion Gap 5.0 BUN 12 Creatinine 1.01 Est Cr Clr Drug Dosing 47.3 Est GFR ( Amer) 60.0 Est GFR (Non-Af Amer) 51.8 BUN/Creatinine Ratio 12.2 Glucose 82 Calcium 8.2 L
[2020-02-26] MEDS: WARFARIN SOD 2.5 MG TAB PO SCH (15:47)
[2020-02-27 06:19] LABS: INR 1.7 (0.9-1.1); Prothrombin Time 17.2 Seconds (9.0-12.0)
[2020-02-27 06:43] LABS: BUN Creatinine Ratio 9.8 (10-20); Calcium 8.2 mg/dl (8.5-10.1); Creatinine Clr Calc Pharmacy 43.4 ml/min; Est GFR (African American) 54.1; Est GFR (Non-African American) 46.7; Potassium 4.1 mmol/L (3.5-5.1)
--- NOTE | 2020-02-27 07:30 | Surgery Progress Note ---
Date of Service February 27, 2020 Assessment & Plan (1) Colon cancer: Postoperative day #4 status post laparoscopic-assisted right colon resection. She is doing very well Advance to low fiber diet today Urine output is good and creatinine is at baseline If acceptable with internal medicine relative to her anticoagulation consider discharge for tomorrow Postoperative activity restrictions discussed Subjective Postoperative day #4 status post laparoscopic assisted right colectomy Patient had bowel movement yesterday Denies abdominal pain Tolerated full liquid diet Ambulated in the halls with PT Denies nausea and vomiting Physical Exam Gastrointestinal (Abdomen): Inspection/Auscultation: normal bowel sounds and + abdominal surgical incision (Clean, dry and intact); abdomen not distended Percussion/Palpation: abdomen soft; abdomen nontender Results & Data Vital Signs (Past 12 Hours) Vital Signs Temp Pulse Resp BP Pulse Ox 02/26/20 22:58 36.7 C 75 16 112/72 98 02/26/20 21:10 81 130/79 Laboratory Results 02/27/20 02/27/20 02/23/20 Range/Units 05:04 05:04 Unknown PT 17.2 H (9.0-12.0) Seconds INR 1.7 H (0.9-1.1) Sodium 145 (136-145) mmol/L Potassium 4.1 (3.5-5.1) mmol/L Chloride 114 H (98-107) mmol/L Carbon Dioxide 28 (21-32) mmol/L Anion Gap 3.0 (3-11) BUN 11 (7-18) mg/dl Creatinine 1.10 (0.6-1.2) mg/dl Est Cr Clr Drug Dosing 43.4 ml/min Est GFR ( Amer) 54.1 Est GFR (Non-Af Amer) 46.7 BUN/Creatinine Ratio 9.8 L (10-20) Glucose 83 (70-99) mg/dl Calcium 8.2 L (8.5-10.1) mg/dl Misc Genetic Test Pending
[2020-02-27] MEDS: METOPROLOL SUCC 25MG EXT REL TAB PO SCH ×2 (08:29→20:28)
[2020-02-27] MEDS: ENOXAPARIN INJ 30 MG/0.3 ML SYR SQ SCH (08:29)
--- NOTE | 2020-02-27 11:01 | Hospitalist Progress Note ---
Date of Service February 27, 2020 Assessment & Plan (1) Colon cancer: Status post laparoscopic assisted right colectomy by Dr. Villaseñor POD #3 Pain/wound management per surgery Activity and therapy as directed by surgery Bowel function returned. Having BM Hb dropped to 10.4. Possibly post surgical anemia + IVF (2) Atrial fibrillation: Persistent Afib Rate controlled with metoprolol Warfarin resumed post op at home dose of 2.5 mg daily INR is 1.7 today Currently on lovenox daily for now Ok to discharge tomorrow from medical perspective (3) Hypertension: BP increasing Resume home losartan and lasix (4) Leukocytosis: Likely reactive in settting of post op state Afebrile, asymptomatic Resolved (5) Hyperlipidemia: Continue statin (6) CKD (chronic kidney disease), stage III: GERARD on CKD3 on admission GERARD now resolved Baseline creatinine 1.3 On 02/22 creatinine 2.08, now 1.10 this morning Monitor Cr Avoid nephrotoxic agents (7) DVT prophylaxis: SCD/teds, Lovenox Continue warfarin 2.5mg daily Follow INR, D/C Lovenox when INR > 2.0 Can be discharged home tomorrow from medical perspective Admission and Anticipated Discharge Date Admission Date: February 23, 2020 Subjective Patient seen and examined Denied any complaints Has started moving bowel Tolerating diet well Physical Exam Constitutional: + well hydrated; no acute distress Eyes: PERRL, conjunctivae normal, anicteric sclerae ENMT: external ear and nose normal, oropharynx normal Respiratory: normal respiratory effort, lungs clear to auscultation Gastrointestinal (Abdomen): normal bowel sounds, soft, nontender, no hepatosplenomegaly Clean surgical site Musculoskeletal: Extremities: no cyanosis Neurologic: PERRL, EOMI, accommodation nl, no face palsy, no dysarthria Psychiatric: A+Ox3, euthymic affect Results & Data Results & Data ([facility]) Vital Signs (Past 12 Hours) Vital Signs Temp Pulse Pulse Resp BP Pulse Ox 02/27/20 08:28 87 147/91 H 02/27/20 07:49 36.8 C 75 18 119/77 98 Laboratory Results Laboratory Results - last 24 hr 02/27/20 02/27/20 05:04 05:04 PT 17.2 H INR 1.7 H Sodium 145 Potassium 4.1 Chloride 114 H Carbon Dioxide 28 Anion Gap 3.0 BUN 11 Creatinine 1.10 Est Cr Clr Drug Dosing 43.4 Est GFR ( Amer) 54.1 Est GFR (Non-Af Amer) 46.7 BUN/Creatinine Ratio 9.8 L Glucose 83 Calcium 8.2 L
[2020-02-27] MEDS: WARFARIN SOD 2.5 MG TAB PO SCH (15:26)
[2020-02-28 06:53] LABS: INR 1.9 (0.9-1.1); Prothrombin Time 19.2 Seconds (9.0-12.0)
[2020-02-28] MEDS ORDERED: FUROSEMIDE 40 MG TAB PO SCH (09:00)
[2020-02-28] MEDS ORDERED: LOSARTAN POTASSIUM 50 MG TAB PO SCH (09:00)
[2020-02-28] MEDS: ENOXAPARIN INJ 30 MG/0.3 ML SYR SQ SCH (09:27)
[2020-02-28] MEDS: METOPROLOL SUCC 25MG EXT REL TAB PO SCH (09:28)
--- NOTE | 2020-02-28 09:48 | Hospitalist Progress Note ---
Date of Service February 28, 2020 Assessment & Plan (1) Colon cancer: Status post laparoscopic assisted right colectomy by Dr. Villaseñor POD #4 Pain/wound management per surgery Activity and therapy as directed by surgery Bowel function returned. Having BM Hb dropped to 10.4. Possibly post surgical anemia + IVF (2) Atrial fibrillation: Persistent Afib Rate controlled with metoprolol Warfarin resumed post op at home dose of 2.5 mg daily INR is 1.9 today Discharge on home dose of warfarin Discontinue lovenox Patient advised to follow up outpatient for monitoring of INR. She stated she will make appointment on her own on discharge (3) Hypertension: Discharge on home dose of losartan and lasix (4) Leukocytosis: Likely reactive in settting of post op state Afebrile, asymptomatic Resolved (5) Hyperlipidemia: Continue statin (6) CKD (chronic kidney disease), stage III: GERARD on CKD3 on admission GERARD now resolved Baseline creatinine 1.3 On 02/22 creatinine 2.08, down to 1.10 yesterday Avoid nephrotoxic agents (7) DVT prophylaxis: Discontinue lovenox Discharge on home dose of warfarin Patient to follow up with PCP Admission and Anticipated Discharge Date Admission Date: February 23, 2020 Subjective Patient seen and examined Reports no abd pain Tolerating po very well. Having regular bowel movement Physical Exam Constitutional: + well hydrated; no acute distress Eyes: PERRL, conjunctivae normal, anicteric sclerae ENMT: external ear and nose normal, oropharynx normal Respiratory: normal respiratory effort, lungs clear to auscultation Gastrointestinal (Abdomen): normal bowel sounds, soft, nontender, no hepatosplenomegaly Clean surgical site Musculoskeletal: Extremities: no cyanosis Neurologic: PERRL, EOMI, accommodation nl, no face palsy, no dysarthria Psychiatric: A+Ox3, euthymic affect Results & Data Results & Data ([facility]) Vital Signs (Past 12 Hours) Vital Signs Temp Pulse Resp BP Pulse Ox 02/28/20 08:05 36.7 C 79 16 142/73 H 95 02/27/20 23:21 36.7 C 89 18 126/92 96 Laboratory Results Laboratory Results - last 24 hr 02/28/20 06:31 PT 19.2 H INR 1.9 H
--- NOTE | 2020-02-28 09:55 | Surgery Progress Note ---
Date of Service February 28, 2020 Assessment & Plan (1) Colon cancer: POD#5 lap assisted right colon resection -progressing very well, patient wants to go home -incisions c/d/i - INR 1.9 today. Spoke with medicine who is okay with pt discharging on home warfarin dose, no lovenox bridge needed. Will ask her to follow up in coumadin clinic next sunday. -RN will leave patient with hand-out for low fiber diet -pain is well controlled on tylenol -stable for discharge to home today -she will plan follow up with Dr. Villaseñor Subjective Patient doing well, wants to go home. Offers no complaints. Tolerating diet. Pain well controlled. Physical Exam Physical Exam: awake/alert Gastrointestinal (Abdomen): Inspection/Auscultation: + abdominal surgical incision (c/d/i with mary ellen in place, no sign of infection) Percussion/Palpation: abdomen soft; abdomen nontender Results & Data Vital Signs (Past 12 Hours) Vital Signs Temp Pulse Resp BP Pulse Ox 02/28/20 08:05 36.7 C 79 16 142/73 H 95 02/27/20 23:21 36.7 C 89 18 126/92 96 PG Care Time/CCT Total # of Minutes Spent Total Time Spent with Patient: Total time spent is greater than 50% in coordination of care (as documented) at patient's floor/unit and/or counseling patient: Coding Level of Care Code 16080 Subseq Hosp Care Lvl 1 Diagnoses Colon cancer C18.9
--- NOTE | 2020-03-01 09:52 | Discharge Summary ---
Date of Service March 01, 2020 Admission HPI Per Admitting Provider Patient presented to [facility] for elective laparoscopic assisted right colectomy for biopsed proved colon cancer as an outpatient with Dr. Villaseñor. Principal Diagnosis Colon cancer Discharge Data Allergies Allergy/AdvReac Type Severity Reaction Status Date / Time No Known Allergies Allergy Verified 02/23/20 06:56 Consultations 02/24/20 07:10 Consult Hospitalist Routine Procedures Performed Operation Date: 02/23/20 08:20 Actual Procedures p Right Laparoscopic Assisted Colon Resection(Right) - Eddie Villaseñor MD Hospital Course (1) Colon cancer: Patient was taken to operating room for laparoscopic assisted right colectomy by Dr. Villaseñor. Patient tolerated procedure well and was transferred to recovery room and then to medical/surgical floor for postoperative care. NGT was placed intraoperatively and kept postoperatively. She was started IV fluids, IV Morphine prn pain, IV Zofran prn nausea, SCDs and Lovenox for DVT prophylaxis. POD # 1 avss, minimal postop pain, peristalsis had not returned yet, NGT was kept, Kept NPO. Medicine was consulted to help with hypertensive and coumadin management. Coumadin was restarted on POD # 1. POD # 2, avss, pain minimal, peristalsis returned, NGT removed clear liquids started. Encouraged ambulation. PT/OT ordered. POD # 3 avss, pain minimal, passing flatus, diet advanced to full liquids. POD # 4 avss, bowel function returned. Diet advanced to low fiber diet. INR was 1.7. POD # 5, avss, pain controlled with po Tylenol, tolerated low fiber diet. INR was 1.9. Patient was discharged home on POD # 5 in stable condition with home dose of Coumadin and without lovenox bridging. Advised to follow-up with Coumadin clinic on Sunday. Overall hospital course was uneventful. Total Time Total Time Spent Total Time Spent (In Minutes): 20 Total Time Includes: Examination of the Patient, Discharge Planning, Medication Reconciliation and Communication With Other Providers Discharge Plan Discharge Items Patient Disposition: Home - Self-Care Reason For Visit: Malignant Neoplasm of Hepatic Flexure Discharge Diagnosis: same Activity: Per Instructions section Non-emergency contact: Primary Care Provider and Surgeon Call non-emergency contact if: you have any medication questions, your pain is not controlled, your pain is worsening, you have a fever, your temperature is above 101, your wound has increased redness, your wound has increased drainage and your wound pain has increased Follow-up/Referrals: Eddie Villaseñor MD [Physician] - (Post-op visit needs to be scheduled for Sunday03/05/[address] Villaseñor) Eddie Pelayo MD [Primary Care Provider] - Diet: Low Fiber Addtl Attending Provider Instructions: Post-Surgical ~Discharge Instructions Activity Recommendations: - lifting limitation: (10 pounds for 6 weeks), - exercise/sex/sports limit: (nonstrenuous for 2 weeks or until cleared by surgeon), - driving or machine use limit: (none for 1 week), - Shower/bathe limit: (may shower) Diet: Low fiber diet for 2-4 weeks SPECIAL CARE INSTRUCTIONS: - May shower. Let water run over area and pat dry. - Surgical mary ellen will be removed in office - Call the surgeon's office with any questions or concerns - - (ex. temperature higher than 101 degrees F, excessive bleeding or pain). MEDICATIONS: - Resume previous medications unless instructed otherwise by your surgeon. - You may take extra strength Tylenol as needed for pain FOLLOW UP VISIT: - please call the office to schedule a follow-up appointment with Dr. Villaseñor next Sunday03/05/2020 for postop check and staple removal. Office number - You will need to call the Coumadin clinic on Sunday to set up a repeat INR draw to monitor and if needed adjust your Coumadin levels. Pending Studies at Discharge: No Stand-Alone Forms: [facility], Smoking Cessation Medications and DC Order Prescriptions: Continued losartan [Cozaar] 50 mg Tablet 50 mg PO QAM RF: 0 furosemide [Lasix] 40 mg Tablet 40 mg PO QAM RF: 0 atorvastatin [Lipitor] 40 mg Tablet 40 mg PO QAM RF: 0 potassium chloride 10 mEq Capsule, Extended Release 10 meq PO DAILY RF: 0 warfarin 5 mg Tablet 2.5 mg PO UD RF: 0 metoprolol succinate 25 mg Tablet Extended Release 24 Hr 25 mg PO BID RF: 0 Restasis 0.05 % Dropperette 1 drp OPHTHALMIC (EYE) Q12H RF: 0 Discharge Orders: Discharge Order (Routine); Ordered 02/28/20 Ordered By: Ivy Sanchez/Other Patient Handouts: Low-Fiber Diet Admission Data Admit Date/Time: 02/23/20 12:32 Attending Provider: Eddie Villaseñor Admit Provider: Eddie Villaseñor Primary Care Provider: Eddie Pelayo Other Providers: Garrick Amato ; Gadiel Santiago ; Zain Rondon ; Genna Cespedes ; Mila Mcmahon ; Claudia Beck ; Lilian Oscar ; Sid Gallego ; Len Montez ; Kash Mendez ; Brenna Conrad ; [employer] ; Iraida Landry ; Simone Blackburn ; Mil Zaidi ; Nika Goyal ; Wyatt Bowen ; Ellen Marquez ; Mil Hernandez ; Naye Henry ; June Royal ; Poly Ro ; Zhanna Kinney I. ; Garo Rogers ; Dawit Velazquez Other Interventions: Discharge Summary Assessment (RN) Last Done: 02/28/20 09:56 DC Date/Time DO NOT enter until pt leaves facility: 02/28/20 11:23
== END 2020-02-28 11:23 | disposition home or self-care (01) | DRG 330 ==
LOC: ASU 06:12 → 3N 12:32
DX: I48.19 Other persistent atrial fibrillation; I12.9 Hypertensive chronic kidney disease with stage 1 through stage 4 chronic kidney disease, or unspecified chronic kidney disease; D72.829 Elevated white blood cell count, unspecified; Z79.899 Other long term (current) drug therapy; Z88.8 Allergy status to other drugs, medicaments and biological substances; Z90.12 Acquired absence of left breast and nipple; Z88.1 Allergy status to other antibiotic agents; E66.9 Obesity, unspecified; Z88.0 Allergy status to penicillin; Z88.5 Allergy status to narcotic agent; C18.3 Malignant neoplasm of hepatic flexure; E78.5 Hyperlipidemia, unspecified; Z68.30 Body mass index [BMI] 30.0-30.9, adult; N18.3 Chronic kidney disease, stage 3 (moderate); Z79.01 Long term (current) use of anticoagulants; Z85.3 Personal history of malignant neoplasm of breast; Z51.81 Encounter for therapeutic drug level monitoring

== ENCOUNTER 2020-04-30 12:46 | Inpatient (IN) ==
[2020-04-30 14:20] LABS: Prothrombin Time > 90.0 Seconds (9.0-12.0)
--- NOTE | 2020-04-30 14:21 | Emergency Department Note ---
Impression & Plan Acute kidney injury superimposed on chronic kidney disease, Supratherapeutic INR ED Provider Note INFORMANT: Patient ED PROVIDER(S): Gadiel Alexandre MD CHIEF COMPLAINT: Abnormal labs PLAN: Disposition: Admitted Condition: Good MEDICAL DECISION MAKING: Patient presented due to abnormal labs. She had a supratherapeutic INR as well and has an elevated creatinine. Her laboratory testing was confirmed and she indeed had a significant elevation of her INR at 9.7 as well as acute kidney injury consistent with a creatinine of 2.1. The patient was hydrated. She had mild hypokalemia. She was given oral potassium as well as oral vitamin K as she does not have any active bleeding. Further management will be necessary in the hospital. Consultation was made with the [facility] service. The timur rivera was evaluated in the ER for further management. Triage Nursing notes reviewed and agree them. Additional history obtained from Prior medical records reviewed outpatient laboratory testing revealed increasing creatinine and increasing INR. Vital Signs: reviewed and remarkable for no significant abnormalities Differential diagnosis: Infection, dehydration, metabolic abnormality, hypo/hyperglycemia, electrolyte disturbance, anemia, hypoxia, cardiac sources, intracerebral event, toxicologic, neurologic, as well as other pathologies. Diagnostics interpreted by me: CBC showed no significant abnormalities. Her chemistry panel reveals hypokalemia and acute kidney injury. Supratherapeutic INR. Consultation(s): [facility] service HPI: The patient is a 85 year old female who presents to the Emergency Room with complaints of abnormal labs. This started this week and is worsening. Her creatinine and INR have increased despite modifying coumadin dose. The patient also notes the following associated symptoms, generalized weakness. The patient has found no relieving factors. Current pain is rated as 0/10. PCP has been monitoring labs and they worsened today. Sent to ER for further management. Pt denies LOC, headache, fevers, chills, diaphoresis, visual changes, neck pain, chest pain, breathing difficulties, nausea, vomiting, abdominal pain, back pain, melena, hematochezia, urinary symptoms, numbness, lymphadenopathy, rash, or other complaints. ROS: See above HPI for pertinent positives & negatives. A total of 10 systems reviewed and were otherwise negative. PAST MEDICAL HISTORY:See Below, Afib PAST SURGICAL HISTORY:See Below,GB, mastectomy, hysterectomy FAMILY HISTORY:See Below SOCIAL HISTORY:See Below, HOME MEDICATIONS:See Below ALLERGIES:See Below VITALS:See Below PHYSICAL EXAMINATION: GENERAL: Awake, alert, well-appearing, in no distress HENT: Normocephalic, atraumatic. Oropharynx unremarkable. EYES: Normal conjunctiva. Sclera non-icteric. NECK: Inspection normal. Non-tender. Supple. No nuchal rigidity. FROM. No masses. Left neck ecchymosis RESPIRATORY: Clear to auscultation. No wheezes. No rales. Normal respiratory effort. CARDIAC: Normal rate. Normal rhythm. No murmurs. No rubs. Extremities warm and well perfused. Pulses equal. No JVD. GI: Soft, non-distended. No tenderness to palpation. No rebound or guarding. No masses. RECTAL: Deferred. MUSCULOSKELETAL: Atraumatic. Chest examination reveals no tenderness. The back is symmetrical on inspection without obvious abnormality. There is no CVA tenderness to palpation. No joint edema. LOWER EXTREMITIES: Calves are equal size bilaterally and non-tender. No edema. No discoloration. NEURO: Normal sensorium. No sensory or motor deficits noted. SKIN: No rash or jaundice noted. Gadiel Alexandre MD Past Med/Surg History Medical History Aortic valve sclerosis Atrial fibrillation takes warfarin Colon cancer needs surgical treatment Colon cancer Depression Diastolic dysfunction Diverticular disease history Hx of breast cancer 06/1999 chemo and surgical treatment Hyperlipidemia Hypertension Mild concentric left ventricular hypertrophy (LVH) Osteoarthritis Osteoporosis Reflux esophagitis Urine incontinence Vitamin D deficiency Surgical History History of cholecystectomy History of knee replacement right and left Hx of colonoscopy february 2020 Hx of hysterectomy Hx of mastectomy LEFT S/P partial colectomy 2019 Family History Mother Coronary heart disease Father CHF (congestive heart failure) Brother Valvular heart disease Social History Smoking Status: Never smoker Tobacco Type: Cigarettes Second Hand Exposure: Yes (dad smoked); Hx Alcohol Use: No Hx Substance Use: No Preferred Language: Turkmen Communication Ability: Effective Emergency Department Required: No Beliefs That Will Affect Care: None marital status: Current Living Situation: Spouse Current Living Situation Comment: Feels Safe at Home: Yes Safety Concerns: Feels Safe At This Time Allergies Allergies Allergy/AdvReac Type Severity Reaction Status Date / Time loteprednol [From Lotemax] Allergy edema , Verified 04/30/20 15:32 hives amoxicillin [From Augmentin] AdvReac Intermediate lower abd Verified 04/30/20 15:32 pain, spasm clavulanic acid AdvReac Intermediate lower abd Verified 04/30/20 15:32 [From Augmentin] pain, spasm alendronate sodium AdvReac Muscle Pain Verified 04/30/20 15:32 codeine AdvReac achiness Verified 04/30/20 15:32 lisinopril AdvReac Cough Verified 04/30/20 15:32 Home Meds Home Medications Medication Instructions Recorded Confirmed Restasis 1 drp OPHTHALMIC (EYE) BID 02/17/20 04/30/20 atorvastatin [Lipitor] 40 mg PO QAM 02/17/20 04/30/20 furosemide [Lasix] 40 mg PO QAM 02/17/20 04/30/20 losartan [Cozaar] 50 mg PO QAM 02/17/20 04/30/20 metoprolol succinate 25 mg PO BID 02/17/20 04/30/20 potassium chloride 10 meq PO QAM 02/17/20 04/30/20 warfarin 2.5 mg PO HS 02/17/20 04/30/20 dexamethasone [Decadron] 4 mg PO BID 04/29/20 04/30/20 ondansetron HCl [Zofran] 8 mg PO Q8 PRN 04/29/20 04/30/20 Results & Data (ED) Vital Signs Vital Signs - 24 hr 04/30/20 13:07 04/30/20 13:51 04/30/20 13:55 Temperature 36.5 C Temperature Source Oral Pulse Rate 110 H 107 H 115 H Pulse Rate [Left] Respiratory Rate 18 29 H 18 Respiratory Effort / Characteristics Respiratory Depth Blood Pressure 122/69 Blood Pressure [Right Arm] Blood Pressure Mean 86 Blood Pressure Mean [Right Arm] Blood Pressure Position [Right Arm] Pulse Oximetry 93 100 Oxygen Delivery Method Room Air Room Air Sepsis Recent Fever Within 48 Hours No Sepsis New/Unexplained Change in Mental Status N/A Sepsis Action Taken by Nursing No Action Required 04/30/20 14:00 04/30/20 14:10 04/30/20 14:20 Temperature Temperature Source Pulse Rate 127 H 103 H 103 H Pulse Rate [Left] Respiratory Rate 32 H 22 30 H Respiratory Effort / Characteristics Respiratory Depth Blood Pressure Blood Pressure [Right Arm] Blood Pressure Mean Blood Pressure Mean [Right Arm] Blood Pressure Position [Right Arm] Pulse Oximetry Oxygen Delivery Method Sepsis Recent Fever Within 48 Hours Sepsis New/Unexplained Change in Mental Status Sepsis Action Taken by Nursing 04/30/20 14:30 04/30/20 14:40 04/30/20 14:47 Temperature Temperature Source Pulse Rate 108 H 111 H 97 H Pulse Rate [Left] 107 H Respiratory Rate 23 22 20 Respiratory Effort / Characteristics Non-Labored Spontaneous Respiratory Depth Normal Blood Pressure 137/87 Blood Pressure [Right Arm] 137/87 Blood Pressure Mean 106 Blood Pressure Mean [Right Arm] 103 Blood Pressure Position [Right Arm] Lying Pulse Oximetry 100 Oxygen Delivery Method Room Air Sepsis Recent Fever Within 48 Hours Sepsis New/Unexplained Change in Mental Status Sepsis Action Taken by Nursing 04/30/20 14:50 04/30/20 15:00 04/30/20 15:10 Temperature Temperature Source Pulse Rate 109 H 107 H 95 H Pulse Rate [Left] Respiratory Rate 14 21 21 Respiratory Effort / Characteristics Respiratory Depth Blood Pressure Blood Pressure [Right Arm] Blood Pressure Mean Blood Pressure Mean [Right Arm] Blood Pressure Position [Right Arm] Pulse Oximetry Oxygen Delivery Method Sepsis Recent Fever Within 48 Hours Sepsis New/Unexplained Change in Mental Status Sepsis Action Taken by Nursing 04/30/20 15:20 04/30/20 15:30 04/30/20 15:40 Temperature Temperature Source Pulse Rate 101 H 105 H 112 H Pulse Rate [Left] Respiratory Rate 18 17 14 Respiratory Effort / Characteristics Respiratory Depth Blood Pressure Blood Pressure [Right Arm] Blood Pressure Mean Blood Pressure Mean [Right Arm] Blood Pressure Position [Right Arm] Pulse Oximetry Oxygen Delivery Method Sepsis Recent Fever Within 48 Hours Sepsis New/Unexplained Change in Mental Status Sepsis Action Taken by Nursing Laboratory Data Result diagrams: 04/30/20 13:45 04/30/20 13:45 Lab Results 04/30/20 04/30/20 04/30/20 Range/Units 13:45 13:45 13:45 WBC 5.82 (4.8-10.8) K/uL RBC 4.39 (4.2-5.4) M/uL Hgb 11.7 L (12.0-16.0) g/dL Hct 35.9 L (37-47) % MCV 81.8 (80-100) fL MCH 26.7 (25-34) pg MCHC 32.6 (32-36) g/dL RDW Std Deviation 45.9 (36.4-46.3) fL RDW Coeff of Ingrid 15.7 H (11.5-14.5) % Plt Count 208 (130-400) K/uL MPV 9.6 (7.4-10.4) fL Immature Gran % (Auto) 6.4 % Neut % (Auto) 53.9 % Lymph % (Auto) 19.4 % Centre % (Auto) 19.6 % Eos % (Auto) 0.2 % Baso % (Auto) 0.5 % Neut # (Auto) 3.14 (1.4-6.5) K/uL Lymph # (Auto) 1.13 L (1.2-3.4) K/uL Centre # (Auto) 1.14 H (0.11-0.59) K/uL Eos # (Auto) 0.01 (0-0.5) K/uL Baso # (Auto) 0.03 (0-0.2) K/uL Immature Gran # (Auto) 0.37 H (0.00-0.02) K/uL Absolute Nucleated RBC 0.02 H (0-0) K/uL Nucleated RBC % (auto) 0.4 % Toxic Granulation 2+ Echinocytes 1+ PT > 90.0 H (9.0-12.0) Seconds INR > 9.7 H* (0.9-1.1) Sodium 141 (136-145) mmol/L Potassium 3.2 L (3.5-5.1) mmol/L Chloride 108 H (98-107) mmol/L Carbon Dioxide 22 (21-32) mmol/L Anion Gap 11.0 (3-11) BUN 31 H (7-18) mg/dl Creatinine 2.11 H (0.6-1.2) mg/dl Est Cr Clr Drug Dosing 21.4 ml/min Est GFR ( Amer) 24.5 Est GFR (Non-Af Amer) 21.1 BUN/Creatinine Ratio 14.5 (10-20) Glucose 118 H (70-99) mg/dl Calcium 8.9 (8.5-10.1) mg/dl Magnesium (1.8-2.4) mg/dl 04/30/20 Range/Units 13:45 WBC (4.8-10.8) K/uL RBC (4.2-5.4) M/uL Hgb (12.0-16.0) g/dL Hct (37-47) % MCV (80-100) fL MCH (25-34) pg MCHC (32-36) g/dL RDW Std Deviation (36.4-46.3) fL RDW Coeff of Ingrid (11.5-14.5) % Plt Count (130-400) K/uL MPV (7.4-10.4) fL Immature Gran % (Auto) % Neut % (Auto) % Lymph % (Auto) % Centre % (Auto) % Eos % (Auto) % Baso % (Auto) % Neut # (Auto) (1.4-6.5) K/uL Lymph # (Auto) (1.2-3.4) K/uL Centre # (Auto) (0.11-0.59) K/uL Eos # (Auto) (0-0.5) K/uL Baso # (Auto) (0-0.2) K/uL Immature Gran # (Auto) (0.00-0.02) K/uL Absolute Nucleated RBC (0-0) K/uL Nucleated RBC % (auto) % Toxic Granulation Echinocytes PT (9.0-12.0) Seconds INR (0.9-1.1) Sodium (136-145) mmol/L Potassium (3.5-5.1) mmol/L Chloride (98-107) mmol/L Carbon Dioxide (21-32) mmol/L Anion Gap (3-11) BUN (7-18) mg/dl Creatinine (0.6-1.2) mg/dl Est Cr Clr Drug Dosing ml/min Est GFR ( Amer) Est GFR (Non-Af Amer) BUN/Creatinine Ratio (10-20) Glucose (70-99) mg/dl Calcium (8.5-10.1) mg/dl Magnesium 2.0 (1.8-2.4) mg/dl Administered Medications Sodium Chloride (Nss 1000ml) 1,000 mls @ 125 mls/hr IV .Q8H STA Stop: 04/30/20 22:23 Last Admin: 04/30/20 14:47 Dose: 125 mls/hr Documented by: [id number] Discontinued Medications Sodium Chloride (Nss 1000ml) 1,000 mls @ 125 mls/hr IV .Q8H STA Stop: 04/30/20 22:51 Last Admin: 04/30/20 15:27 Dose: Not Given Documented by: [id number] Phytonadione (Phytonadione 5 Mg Tab) 5 mg PO NOW STA Stop: 04/30/20 14:53 Last Admin: 04/30/20 16:09 Dose: 5 mg Documented by: [id number] Potassium Chloride (Potassium Chloride 20 Meq Tabcr) 20 meq PO NOW STA Stop: 04/30/20 14:53 Last Admin: 04/30/20 16:09 Dose: 20 meq Documented by: [id number] Discharge Plan Visit Data Chief Complaint: Abnormal Labs/Diagnostic Testing Stated Complaint: COUMADIN LEVEL HIGH ED Provider: Gadiel Alexandre Discharge Problem: Acute kidney injury superimposed on chronic kidney disease, Supratherapeutic INR Patient Disposition: Admitted As Inpatient Discharge Instructions Interventions: ED Discharge Assessment Last Done: 04/30/20 16:41
[2020-04-30] MEDS ORDERED: SODIUM CHLORIDE 0.9% 1000ML 1,000 ML IV STA ×2 (14:24→14:52)
[2020-04-30 14:31] LABS: INR > 9.7 (0.9-1.1)
[2020-04-30 14:33] LABS: Hematocrit (blood only) 35.9 % (37-47); Hemoglobin 11.7 g/dL (12.0-16.0); Mean Corpuscular Hemoglobin 26.7 pg (25-34); Mean Corpuscular Hgb Conc 32.6 g/dL (32-36); Mean Corpuscular Volume 81.8 fL (80-100); Mean Platelet Volume 9.6 fL (7.4-10.4); Nucleated RBC # (auto) 0.02 K/uL (0-0); Nucleated RBC % (auto) 0.4 %; Platelet Count 208 K/uL (130-400); RDW Coefficient of Variation 15.7 % (11.5-14.5); RDW Standard Deviation 45.9 fL (36.4-46.3); Red Blood Count 4.39 M/uL (4.2-5.4); White Blood Count 5.82 K/uL (4.8-10.8)
[2020-04-30 14:40] LABS: BUN Creatinine Ratio 14.5 (10-20); Calcium 8.9 mg/dl (8.5-10.1); Creatinine Clr Calc Pharmacy 21.4 ml/min; Est GFR (African American) 24.5; Est GFR (Non-African American) 21.1; Potassium 3.2 mmol/L (3.5-5.1)
[2020-04-30] MEDS ORDERED: POTASSIUM CHLORIDE CRTAB 20 MEQ TABCR PO STA (14:52)
[2020-04-30] MEDS ORDERED: PHYTONADIONE 5 MG TAB PO STA (14:52)
[2020-04-30 14:55] LABS: Basophils # (auto) 0.03 K/uL (0-0.2); Basophils % (auto) 0.5 %; Echinocytes 1+; Eosinophils # (auto) 0.01 K/uL (0-0.5); Eosinophils % (auto) 0.2 %; Immature Granulocytes # (auto) 0.37 K/uL (0.00-0.02); Immature Granulocytes % (auto) 6.4 %; Lymphocytes # (auto) 1.13 K/uL (1.2-3.4); Lymphocytes % (auto) 19.4 %; Monocytes # (auto) 1.14 K/uL (0.11-0.59); Monocytes % (auto) 19.6 %; Neutrophils # (auto) 3.14 K/uL (1.4-6.5); Neutrophils % (auto) 53.9 %; Toxic Granulation 2+
--- NOTE | 2020-04-30 16:04 | History & Physical Report ---
Date of Service April 30, 2020 Assessment & Plan (1) Acute kidney injury superimposed on chronic kidney disease: Suspect related to dehydration from chemotherapy-induced nausea and vomiting on top of underlying CKDIII (baseline creatinine appears to be around 1.0-1.1) - Gentle IVF - Trial of liquid diet then advance as tolerated - Continue PRN anti-emetics - Follow labs (2) Hypokalemia: - Replete orally - Check magnesium level and replete if needed - Recheck labs in AM (3) Weakness generalized: Suspect multi-factorial - Rehydration as above - Fall precautions - PT/OT consults (4) Supratherapeutic INR: - Given oral vitamin K 5 mg in ED - Continue to hold warfarin - Recheck INR in AM (5) Ecchymosis of neck: Imaging yesterday was negative - non-tender, not worsening. - Continue to monitor (6) Atrial fibrillation: On chronic anticoagulation but currently supratherapeutic - Rate is mildly tachycardic at present - continue beta-she - Monitor on telemetry (7) Colon cancer: s/p resection 03/08, currently receiving chemotherapy every 2 weeks although held this week due to GERARD (8) Hypertension: - Continue outpatient regimen with holds (9) Hyperlipidemia: - Continue outpatient statin therapy Pt seen and reviewed with collaborating physician, Dr. Amato. Plan of care discussed and as outlined above. All of patient's questions were answered. Her was updated on the plan of care at the bedside. Pt requests to be a full code. her would make decisions for her if she is unable to make them. Maged Cespedes PA-C History of Present Illness Chief Complaint: Weakness and abnormal labs Primary Care Provider: Eddie Pelayo MD This is an 85 y/o female with a PMH of colon cancer s/p resection for which she is currently on chemo, atrial fibrillation, mild concentric LVH, CKD3, HTN, hx breast cancer, dyslipidemia, diastolic dysfunction, and aortic sclerosis who presents to the ED after being referred by her outpatient provider with worsening renal function and rising INR. Pt was due for chemotherapy this week but her pre-chemo labs apparently showed mild GERARD with a creatinine of 1.6 so decision made to hold. Yesterday, her called with oncologist due to progressive weakness and ongoing N/V at home. She came into the office for IVF and they noticed a large ecchymotic area on her neck so apparently referred her to the ED for evaluation. Pt reports that she fell at home three days ago and caught her left shoulder/side/neck on the coffee table. Imaging in the ED yesterday was negative for fracture so she was sent home. Her INR was also not ed to be elevated this week so she has held her Coumadin for the past 2-3 days. However, INR has continued to climb. She denies signs of active bleeding including no gingival bleeding, epistaxis, hematemsis, melena, hematochezia, hemoptysis or hematuria. Her oral intake has been limited the past few days due to the N/V although she reports those symptoms are improved today. She feels generally weak and tired. Denies fevers, chills, ST, runny nose, significant cough, CP, SOB or wheezing. Bowel pattern has been loose with occasional urgency since starting chemotherapy. This is not acutely worsened. Allergies Allergy/AdvReac Type Severity Reaction Status Date / Time loteprednol [From Lotemax] Allergy edema , Verified 04/30/20 15:32 hives amoxicillin [From Augmentin] AdvReac Intermediate lower abd Verified 04/30/20 15:32 pain, spasm clavulanic acid AdvReac Intermediate lower abd Verified 04/30/20 15:32 [From Augmentin] pain, spasm alendronate sodium AdvReac Muscle Pain Verified 04/30/20 15:32 codeine AdvReac achiness Verified 04/30/20 15:32 lisinopril AdvReac Cough Verified 04/30/20 15:32 Home Medications Home Medications Medication Instructions Recorded Confirmed Type Restasis 1 drp OPHTHALMIC (EYE) BID 02/17/20 04/30/20 History atorvastatin [Lipitor] 40 mg PO QAM 02/17/20 04/30/20 History furosemide [Lasix] 40 mg PO QAM 02/17/20 04/30/20 History losartan [Cozaar] 50 mg PO QAM 02/17/20 04/30/20 History metoprolol succinate 25 mg PO BID 02/17/20 04/30/20 History potassium chloride 10 meq PO QAM 02/17/20 04/30/20 History warfarin 2.5 mg PO HS 02/17/20 04/30/20 History dexamethasone [Decadron] 4 mg PO BID 04/29/20 04/30/20 History ondansetron HCl [Zofran] 8 mg PO Q8 PRN 04/29/20 04/30/20 History Past Med/Surg History Medical History Aortic valve sclerosis Atrial fibrillation takes warfarin Colon cancer needs surgical treatment Colon cancer Depression Diastolic dysfunction Diverticular disease history Hx of breast cancer 06/1999 chemo and surgical treatment Hyperlipidemia Hypertension Mild concentric left ventricular hypertrophy (LVH) Osteoarthritis Osteoporosis Reflux esophagitis Urine incontinence Vitamin D deficiency Surgical History History of cholecystectomy History of knee replacement right and left Hx of colonoscopy february 2020 Hx of hysterectomy Hx of mastectomy LEFT S/P partial colectomy 2019 Family History Mother Coronary heart disease Father CHF (congestive heart failure) Brother Valvular heart disease Social History Smoking Status: Never smoker Tobacco Type: Cigarettes Second Hand Exposure: Yes (dad smoked); Hx Alcohol Use: No Hx Substance Use: No Preferred Language: Wolof Communication Ability: Effective Health Careers Instructor Required: No Beliefs That Will Affect Care: None marital status: Current Living Situation: Spouse Current Living Situation Comment: Feels Safe at Home: Yes Safety Concerns: Feels Safe At This Time Review of Systems Review of Systems: All systems reviewed & are unremarkable except as noted in HPI & below Constitutional: + fatigue and + weakness; no fever, no chills and no sweats Eyes: no diplopia Ear, Nose, Mouth, Throat: no ear pain, no nasal congestion, no epistaxis, no bleeding gums and no sore throat Respiratory: no chest congestion, no dyspnea, no hemoptysis, no sputum production and no wheezing Cardiovascular: + lightheadedness (yesterday but better today (not moving arou nd)); no chest pain, no palpitations, no syncope and no edema Gastrointestinal: as per Subjective / HPI and + diarrhea/loose stools (ongoing issue - last BM was yesterday); no abdominal pain, no heartburn, no blood in stools and no melena Genitourinary: no dysuria, no difficulty urinating, no urinary frequency, no hematuria and no flank pain Musculoskeletal: no back pain, no neck pain, no joint pain and no body aches Integumentary: no rash and no skin ulcer Neurologic: + falls (fell earlier this week) and + generalized weakness; no seizure-like activity, no syncope, no headache(s), no abnormal speech and no confusion Psychiatric: no depression, no anxiety and no confusion Physical Exam Constitutional: WD/WN, vitals as above Eyes: + anicteric sclerae; no conjunctival abnormality ENMT: external ear and nose normal, oropharynx normal Neck: trachea midline left lateral aspect with non-tender area of ecchymosis - no open wounds Respiratory: no respiratory distress and no labored breathing Auscultation: lungs clear to auscultation bilaterally; no rales, no rhonchi and no wheezes Cardiovascular: Rate/Rhythm: + tachycardic and + irregularly irregular Ve ssels: radial pulses present Extremities: + pedal edema (trace bilateral) and + vascular access device (port in right chest) Gastrointestinal (Abdomen): Inspection/Auscultation: normal bowel sounds; abdomen not distended Percussion/Palpation: abdomen soft; abdomen nontender and no guarding Musculoskeletal: Head/Neck/Chest: normocephalic, head atraumatic and neck supple Extremities: no cyanosis and no clubbing Skin: no rashes, warm and dry no jaundice Neurologic: moves all extremities; no focal motor deficits Speech / Cognition: normal speech Psychiatric: A+Ox3, euthymic affect Results & Data Results & Data ([facility]) Vital Signs (Past 12 Hours) Vital Signs Temp Pulse Pulse Resp BP BP Pulse Ox 04/30/20 14:47 107 H 16 137/87 100 04/30/20 13:55 115 H 18 100 04/30/20 13:07 36.5 C 110 H 18 122/69 93 Laboratory Results Laboratory Results - last 24 hr 04/30/20 04/30/20 04/30/20 13:45 13:45 13:45 WBC 5.82 RBC 4.39 Hgb 11.7 L Hct 35.9 L MCV 81.8 MCH 26.7 MCHC 32.6 RDW Std Deviation 45.9 RDW Coeff of Ingrid 15.7 H Plt Count 208 MPV 9.6 Immature Gran % (Auto) 6.4 Neut % (Auto) 53.9 Lymph % (Auto) 19.4 Clay % (Auto) 19.6 Eos % (Auto) 0.2 Baso % (Auto) 0.5 Neut # (Auto) 3.14 Lymph # (Auto) 1.13 L Clay # (Auto) 1.14 H Eos # (Auto) 0.01 Baso # (Auto) 0.03 Immature Gran # (Auto) 0.37 H Absolute Nucleated RBC 0.02 H Nucleated RBC % (auto) 0.4 Toxic Granulation 2+ Echinocytes 1+ PT > 90.0 H INR > 9.7 H* Sodium 141 Potassium 3.2 L Chloride 108 H Carbon Dioxide 22 Anion Gap 11.0 BUN 31 H Creatinine 2.11 H Est Cr Clr Drug Dosing 21.4 Est GFR ( Amer) 24.5 Est GFR (Non-Af Amer) 21.1 BUN/Creatinine Ratio 14.5 Glucose 118 H Calcium 8.9 Medications Administered Sodium Chloride (Nss 1000ml) 1,000 mls @ 125 mls/hr IV .Q8H STA Stop: 04/30/20 22:23 Last Admin: 04/30/20 14:47 Dose: 125 mls/hr Documented by: [id number] Sodium Chloride (Nss 1000ml) 1,000 mls @ 125 mls/hr IV .Q8H STA Stop: 04/30/20 22:51 Last Admin: 04/30/20 15:27 Dose: Not Given Documented by: [id number] Code Status & VTE Plan VTE Prophylaxis Plan VTE Prophylaxis will be ordered: Yes Supervising Physician Co-Signing Physician Notes Pt was seen and examined. Agreed with Genna PATEL exam, assessment and plan. 85 y/o female with a PMH of colon cancer s/p resection on chemo, atrial fibrillation, mild concentric LVH, CKD3, HTN, hx breast cancer, dyslipidemia, diastolic dysfunction, and aortic sclerosis who presents to the ED after she had abnormal lab. Pt said that she has been having episodes of nausea and vomiting induced by chemotherapy. She had lab done that showed elevated creatinine and INR. Currently sitting in chair with no distress. Denies any chest pain, palpitation, dizziness and SOB. Lab on admission 2.11, and Potassium 3.2 and INR above 9.7. Received IVF and Vitamin K in the ER. Will continue with gentle hydration. Check PT/INR and BMP in am. Will try on clear liquid diet and advanced as tolerated. Continue monitor closely. MD Lima (1) Colon cancer Colon location: hepatic flexure Qualified Code(s): C18.3 - Malignant neoplasm of hepatic flexure (2) Atrial fibrillation Atrial fibrillation type: longstanding persistent Qualified Code(s): I48.11 - Longstanding persistent atrial fibrillation (3) Hyperlipidemia Hyperlipidemia type: unspecified Qualified Code(s): E78.5 - Hyperlipidemia, unspecified (4) Hypertension Hypertension type: essential hypertension Qualified Code(s): I10 - Essential (primary) hypertension
[2020-04-30] MEDS ORDERED: POLYETHYLENE (MIRALAX) 17 GM PACK PO PRN (17:21)
[2020-04-30] MEDS ORDERED: ONDANSETRON INJ 2 MG/ML 2 ML VIAL IV PRN (17:21)
[2020-04-30] MEDS ORDERED: ACETAMINOPHEN 325 MG TAB PO PRN (17:21)
[2020-04-30] MEDS ORDERED: POTASSIUM CHLORIDE CRTAB 20 MEQ TABCR PO ONE (18:00)
[2020-04-30] MEDS: METOPROLOL SUCC 25MG EXT REL TAB PO SCH (21:04)
[2020-04-30] MEDS: dexAMETHasone 4 MG TAB PO SCH (21:04)
[2020-04-30] MEDS ORDERED: SODIUM CHLORIDE 0.45 % 1,000 ML IV SCH (22:30)
[2020-05-01 06:51] LABS: Appearance Urine Cloudy (Clear); Bacteria Urine Automated Negative (Negative); Bilirubin Urine Negative (Negative); Blood Urine Trace (Negative); Color Urine Yellow; Epithelial Cell Urine Auto >30 /lpf (0-5); Glucose Urine UA Negative (Negative); Ketones Urine Trace (Negative); Leukocyte Esterase Urine Negative (Negative); Nitrite Urine Negative (Negative); Protein Urine Trace (Negative); RBC Urine Automated 0-4 /hpf (0-4); Specific Gravity Urine 1.015 (1.000-1.030); Urobilinogen Urine Negative (Negative)
[2020-05-01 06:54] LABS: Hematocrit (blood only) 39.7 % (37-47); Hemoglobin 13.3 g/dL (12.0-16.0); Mean Corpuscular Hemoglobin 27.3 pg (25-34); Mean Corpuscular Hgb Conc 33.5 g/dL (32-36); Mean Corpuscular Volume 81.5 fL (80-100); Mean Platelet Volume 9.6 fL (7.4-10.4); Platelet Count 259 K/uL (130-400); RDW Standard Deviation 46.9 fL (36.4-46.3); Red Blood Count 4.87 M/uL (4.2-5.4); White Blood Count 12.86 K/uL (4.8-10.8)
[2020-05-01 06:58] LABS: INR 2.7 (0.9-1.1); Prothrombin Time 27.3 Seconds (9.0-12.0)
[2020-05-01 07:26] LABS: BUN Creatinine Ratio 14.9 (10-20); Creatinine Clr Calc Pharmacy 19.2 ml/min; Est GFR (African American) 21.4; Est GFR (Non-African American) 18.4; Potassium 3.6 mmol/L (3.5-5.1)
[2020-05-01] MEDS: METOPROLOL SUCC 25MG EXT REL TAB PO SCH ×2 (08:07→20:56)
[2020-05-01] MEDS: dexAMETHasone 4 MG TAB PO SCH ×2 (08:07→20:56)
[2020-05-01] MEDS: ATORVASTATIN 40 MG TAB PO SCH (08:07)
[2020-05-01] MEDS: LACTATED RINGER'S 1,000 ML IV SCH ×2 (08:15→18:59)
[2020-05-01] MEDS ORDERED: LOSARTAN POTASSIUM 50 MG TAB PO SCH (09:00)
--- NOTE | 2020-05-01 12:50 | Ultrasound Report ---
EXAMINATION: RENAL ULTRASOUND CLINICAL HISTORY: Colon carcinoma. Renal insufficiency. Evaluate for obstruction. COMPARISON STUDY: FINDINGS: The right kidney measures 6.2 cm. The left kidney measures 9.3 cm. There is no evidence of hydronephrosis. There is a 16mm right renal cyst. Neither ureteral jet was visualized. IMPRESSION : 1. Atrophic right kidney 2. No evidence of hydronephrosis ACT 112: Negative or not required by law. Electronically signed by: Tolu Arita M.D. 05/01/2020 12:48 PM
--- NOTE | 2020-05-01 14:29 | Hospitalist Progress Note ---
Date of Service May 01, 2020 Assessment & Plan (1) Acute kidney injury superimposed on chronic kidney disease: Acute kidney injury on CKD III Baseline Cr ~ Mid 1s Likely prerenal due to GI loses due to chemotherapy Renal USD:Atrophic right kidney. No evidence of hydronephrosis Cr:2.36 Hold losartan, Lasix for now Continue IV fluids Monitor renal function Avoid nephrotoxic agents as able Bladder scan PRN Consider nephrology evaluation if no improvement (2) Hypokalemia: Normal magnesium levels Repeat electrolytes as needed (3) Weakness generalized: Suspect multi-factorial Fall precautions PT/OT (4) Supratherapeutic INR: Patient had transient epistaxis 2 days prior to admission Received oral vitamin K 5 mg INR:9.7 >>2.7 Currently no bleeding issues Coumadin on hold Plan to resume Coumadin tomorrow (5) Ecchymosis of neck: Neck CT:There is no evidence of fracture or subluxation involving the cervical spine. Osteopenia and spondylotic change as above. Continue to monitor (6) Atrial fibrillation: Stable Continue metoprolol INR: 2.7 Resume Coumadin tomorrow (7) Colon cancer: s/p resection 03/08 currently receiving chemotherapy every 2 weeks Follows with as outpatient (8) Hypertension: Losartan held due to GERARD Continue Metoprolol (9) Hyperlipidemia: Continue Lipitor DVT Px: Resume Coumadin as able Code Status Full Code Disposition PT/OT prior to discharge Admission and Anticipated Discharge Date Admission Date: April 30, 2020 Subjective Patient is seen and examined at bedside Nausea, vomiting resolved Denies chest pain, shortness of breath, dizziness, abdominal pain Renal function--no improvement so far Family at bedside Offers no other complaints Denies bleeding issues currently Review of Systems Review of Systems: All systems reviewed & are unremarkable except as noted in HPI & below Physical Exam Physical Exam: Physical Exam: Vitals signs as noted above General Appearance:Elderly, no apparent distress Head: normocephalic, Atraumatic Eyes: normal inspection, EOMI Neck: supple, Trachea midline Respiratory/Chest: Normal breath sounds, CTA Chest: +Chemo port Cardiovascular: Irregularly irregular, No murmur Abdomen/GI:Soft, Non tender, Bowel sounds present Extremities/Musculoskelatal:normal inspection, 1+ B/L LE edema Neurologic/Psych:AAOX3, grossly no focal neurological deficits Skin: normal color, warm Results & Data Results & Data ([facility]) Vital Signs (Past 12 Hours) Vital Signs Temp Pulse Resp BP Pulse Ox 05/01/20 07:26 101 H 18 113/73 99 05/01/20 03:32 36.3 C L 97 H 20 129/83 98 Laboratory Results Short CBC 04/30/20 05/01/20 Range/Units 13:45 06:20 WBC 5.82 12.86 H (4.8-10.8) K/uL Hgb 11.7 L 13.3 (12.0-16.0) g/dL Hct 35.9 L 39.7 (37-47) % Plt Count 208 259 (130-400) K/uL BMP 04/30/20 05/01/20 13:45 06:20 Sodium 141 139 Potassium 3.2 L 3.6 Chloride 108 H 107 Carbon Dioxide 22 21 BUN 31 H 35 H Creatinine 2.11 H 2.36 H Glucose 118 H 122 H Calcium 8.9 9.0 Urine 05/01/20 Range/Units 06:20 Urine Color Yellow Urine Appearance Cloudy A (Clear) Urine pH 5.0 (4.5-7.5) Ur Specific [place] 1.015 (1.000-1.030) Urine Protein Trace H (Negative) Urine Glucose (UA) Negative (Negative) (1) Atrial fibrillation Atrial fibrillation type: longstanding persistent Qualified Code(s): I48.11 - Longstanding persistent atrial fibrillation (2) Colon cancer Colon location: hepatic flexure Qualified Code(s): C18.3 - Malignant neoplasm of hepatic flexure (3) Hypertension Hypertension type: essential hypertension Qualified Code(s): I10 - Essential (primary) hypertension (4) Hyperlipidemia Hyperlipidemia type: unspecified Qualified Code(s): E78.5 - Hyperlipidemia, unspecified
[2020-05-01] MEDS ORDERED: HEPARIN 100 UNIT/ML 5ML FLUSH FLUSH PRN (23:22)
[2020-05-02] MEDS: LACTATED RINGER'S 1,000 ML IV SCH ×2 (04:21→14:43)
[2020-05-02 06:06] LABS: INR 2.1 (0.9-1.1); Prothrombin Time 21.6 Seconds (9.0-12.0)
[2020-05-02 06:22] LABS: BUN Creatinine Ratio 18.8 (10-20); Creatinine Clr Calc Pharmacy 23.4 ml/min; Est GFR (African American) 26.4; Est GFR (Non-African American) 22.8; Potassium 3.8 mmol/L (3.5-5.1)
[2020-05-02 06:31] LABS: Hematocrit (blood only) 34.2 % (37-47); Hemoglobin 11.6 g/dL (12.0-16.0); Mean Corpuscular Hemoglobin 27.6 pg (25-34); Mean Corpuscular Hgb Conc 33.9 g/dL (32-36); Mean Corpuscular Volume 81.4 fL (80-100); Mean Platelet Volume 9.7 fL (7.4-10.4); Platelet Count 265 K/uL (130-400); RDW Coefficient of Variation 16.1 % (11.5-14.5); RDW Standard Deviation 46.6 fL (36.4-46.3); White Blood Count 15.16 K/uL (4.8-10.8)
[2020-05-02 06:56] LABS: ALC (manual) 3.17 K/uL (1.2-3.4); ANC (manual) 9.49 K/uL (1.4-6.5); Lymphocytes # (manual) 3.17 K/uL (1.2-3.4); Lymphocytes % (manual) 20.9 %; Metamyelocytes # (manual) 0.39 K/uL (0-0); Metamyelocytes % (manual) 2.6 %; Monocytes # (manual) 1.32 K/uL (0.11-0.59); Monocytes % (manual) 8.7 %; Myelocytes # (manual) 0.79 K/uL (0-0); Myelocytes % (manual) 5.2 %; Neutrophils # (manual) 9.49 K/uL (1.4-6.5); Neutrophils % (manual) 62.6 %; Toxic Granulation 3+
[2020-05-02] MEDS: ATORVASTATIN 40 MG TAB PO SCH (08:11)
[2020-05-02] MEDS: METOPROLOL SUCC 25MG EXT REL TAB PO SCH ×2 (08:11→20:26)
--- NOTE | 2020-05-02 14:34 | Hospitalist Progress Note ---
Date of Service May 02, 2020 Assessment & Plan (1) Acute kidney injury superimposed on chronic kidney disease: Acute kidney injury on CKD III Baseline Cr ~ Mid 1s Likely prerenal due to GI loses due to chemotherapy Renal USD:Atrophic right kidney. No evidence of hydronephrosis Cr:2.36>> 1.98 Continue to hold losartan, Lasix Continue IV fluids Monitor renal function Avoid nephrotoxic agents as able Bladder scan PRN (2) Hypokalemia: Normal magnesium levels Repeat electrolytes as needed Monitor (3) Weakness generalized: Suspect multi-factorial Fall precautions PT/OT (4) Supratherapeutic INR: Patient had transient epistaxis 2 days prior to admission Received oral vitamin K 5 mg INR:9.7 >2.7> 2.1 Currently no bleeding issues Currently no bleeding issues Resume Coumadin today (5) Ecchymosis of neck: Neck CT:There is no evidence of fracture or subluxation involving the cervical spine. Osteopenia and spondylotic change as above. Continue to monitor (6) Atrial fibrillation: Stable Continue metoprolol INR: 2.1 Continue Coumadin for anticoagulation (7) Colon cancer: s/p resection 03/08 currently receiving chemotherapy every 2 weeks Follows with as outpatient (8) Hypertension: Losartan held due to GERARD Continue Metoprolol (9) Hyperlipidemia: Continue Lipitor DVT Px: Coumadin Code Status Full Code Disposition PT/OT prior to discharge Admission and Anticipated Discharge Date Admission Date: April 30, 2020 Subjective Patient is seen and examined at bedside States feeling better today Offers no complaints Renal function slowly improving Denies chest pain, SOB, dizziness, nausea, vomiting, abdominal pain Family at bedside Review of Systems Review of Systems: All systems reviewed & are unremarkable except as noted in HPI & below Physical Exam Physical Exam: Physical Exam: Vitals signs as noted above General Appearance:Elderly, no apparent distress Head: normocephalic, Atraumatic Eyes: normal inspection, EOMI Neck: supple, Trachea midline Respiratory/Chest: Normal breath sounds, CTA Chest: +Chemo port Cardiovascular: Irregularly irregular, No murmur Abdomen/GI:Soft, Non tender, Bowel sounds present Extremities/Musculoskelatal:normal inspection, 1+ B/L LE edema Neurologic/Psych:AAOX3, grossly no focal neurological deficits Skin: normal color, warm Results & Data Results & Data ([facility]) Vital Signs (Past 12 Hours) Vital Signs Temp Pulse Pulse Resp BP Pulse Ox 05/02/20 11:16 36.4 C L 83 18 120/75 97 05/02/20 07:37 81 05/02/20 07:16 103 H 18 126/88 96 05/02/20 04:01 36.6 C 103 H 18 130/88 95 Laboratory Results Short CBC 05/02/20 Range/Units 05:33 WBC 15.16 H (4.8-10.8) K/uL Hgb 11.6 L (12.0-16.0) g/dL Hct 34.2 L (37-47) % Plt Count 265 (130-400) K/uL BMP 05/02/20 05:33 Sodium 139 Potassium 3.8 Chloride 109 H Carbon Dioxide 22 BUN 37 H Creatinine 1.98 H D Glucose 143 H Calcium 9.0 (1) Atrial fibrillation Atrial fibrillation type: longstanding persistent Qualified Code(s): I48.11 - Longstanding persistent atrial fibrillation (2) Colon cancer Colon location: hepatic flexure Qualified Code(s): C18.3 - Malignant neoplasm of hepatic flexure (3) Hypertension Hypertension type: essential hypertension Qualified Code(s): I10 - Essential (primary) hypertension (4) Hyperlipidemia Hyperlipidemia type: unspecified Qualified Code(s): E78.5 - Hyperlipidemia, unspecified
[2020-05-02] MEDS ORDERED: WARFARIN SOD 2.5 MG TAB PO SCH (16:00)
[2020-05-03] MEDS: LACTATED RINGER'S 1,000 ML IV SCH ×2 (01:22→14:09)
[2020-05-03 06:29] LABS: Mean Corpuscular Hgb Conc 34.1 g/dL (32-36); Mean Platelet Volume 8.8 fL (7.4-10.4); Platelet Count 225 K/uL (130-400)
[2020-05-03 06:45] LABS: INR 3.5 (0.9-1.1); Prothrombin Time 34.5 Seconds (9.0-12.0)
[2020-05-03 07:01] LABS: BUN Creatinine Ratio 20.9 (10-20); Calcium 8.9 mg/dl (8.5-10.1); Creatinine Clr Calc Pharmacy 27.2 ml/min; Est GFR (African American) 31.3; Potassium 3.7 mmol/L (3.5-5.1)
[2020-05-03 07:10] LABS: ALC (manual) 3.95 K/uL (1.2-3.4); ANC (manual) 9.78 K/uL (1.4-6.5); Echinocytes 1+; Hematocrit (blood only) 32.8 % (37-47); Hemoglobin 11.2 g/dL (12.0-16.0); Lymphocytes # (manual) 3.95 K/uL (1.2-3.4); Lymphocytes % (manual) 23.5 %; Mean Corpuscular Hemoglobin 28.1 pg (25-34); Mean Corpuscular Volume 82.4 fL (80-100); Metamyelocytes # (manual) 0.87 K/uL (0-0); Metamyelocytes % (manual) 5.2 %; Monocytes # (manual) 0.59 K/uL (0.11-0.59); Monocytes % (manual) 3.5 %; Myelocytes # (manual) 1.61 K/uL (0-0); Myelocytes % (manual) 9.6 %; Neutrophils # (manual) 9.78 K/uL (1.4-6.5); Neutrophils % (manual) 58.2 %; RDW Coefficient of Variation 16.3 % (11.5-14.5); RDW Standard Deviation 48.7 fL (36.4-46.3); Red Blood Count 3.98 M/uL (4.2-5.4); Toxic Granulation 1+
[2020-05-03] MEDS: METOPROLOL SUCC 25MG EXT REL TAB PO SCH ×2 (08:16→20:14)
[2020-05-03] MEDS: ATORVASTATIN 40 MG TAB PO SCH (08:16)
--- NOTE | 2020-05-03 12:30 | Hospitalist Progress Note ---
Date of Service May 03, 2020 Assessment & Plan (1) Acute kidney injury superimposed on chronic kidney disease: Acute kidney injury on CKD III Baseline Cr ~ Mid 1s Likely prerenal due to GI loses due to chemotherapy Renal USD:Atrophic right kidney. No evidence of hydronephrosis Cr:2.36>> 1.98>>1.72 Continue to hold losartan, Lasix Monitor renal function Avoid nephrotoxic agents as able Bladder scan PRN Renal function slowly improving Decrease IV fluids today Monitor volume status (2) Hypokalemia: Normal magnesium levels Repeat electrolytes as needed Monitor (3) Weakness generalized: Suspect multi-factorial Fall precautions Continue PT/OT (4) Supratherapeutic INR: Patient had transient epistaxis 2 days prior to admission Received oral vitamin K 5 mg INR:9.7 >2.7> 2.1>>3.5 Currently no bleeding issues Hold Coumadin today Monitor INR Needs follow up with Coumadin clinic upon discharge (5) Ecchymosis of neck: Neck CT:There is no evidence of fracture or subluxation involving the cervical spine. Osteopenia and spondylotic change as above. Continue to monitor (6) Atrial fibrillation: Stable Continue metoprolol INR: 3.5 Hold Coumadin today (7) Colon cancer: s/p resection 03/08 currently receiving chemotherapy every 2 weeks Follows with as outpatient (8) Hypertension: Losartan held due to GERARD Continue Metoprolol (9) Hyperlipidemia: Continue Lipitor DVT Px: Coumadin on hold Supratherapeutic INR Code Status Full Code Disposition PT/OT prior to discharge Admission and Anticipated Discharge Date Admission Date: April 30, 2020 Subjective Patient is seen and examined at bedside Reports minimal dry cough Renal function slowly improving No other complaints Denies chest pain, SOB, dizziness, nausea, vomiting, abdominal pain Inr supratherapeutic, denies bleeding issues Review of Systems Review of Systems: All systems reviewed & are unremarkable except as noted in HPI & below Physical Exam Physical Exam: Physical Exam: Vitals signs as noted above General Appearance:Elderly, no apparent distress Head: normocephalic, Atraumatic Eyes: normal inspection, EOMI Neck: supple, Trachea midline Respiratory/Chest: Normal breath sounds, CTA Chest: +Chemo port Cardiovascular: Irregularly irregular, No murmur Abdomen/GI:Soft, Non tender, Bowel sounds present Extremities/Musculoskelatal:normal inspection, 1+ B/L LE edema Neurologic/Psych:AAOX3, grossly no focal neurological deficits Skin: normal color, warm Results & Data Results & Data ([facility]) Vital Signs (Past 12 Hours) Vital Signs Temp Pulse Pulse Resp BP Pulse Ox 05/03/20 11:09 36.3 C L 69 18 121/78 98 05/03/20 07:13 81 18 149/96 H 96 05/03/20 03:02 36.4 C L 80 18 133/92 96 05/03/20 01:54 100 H Laboratory Results Short CBC 05/03/20 Range/Units 06:06 WBC 16.80 H (4.8-10.8) K/uL Hgb 11.2 L (12.0-16.0) g/dL Hct 32.8 L (37-47) % Plt Count 225 (130-400) K/uL BMP 05/03/20 06:06 Sodium 143 Potassium 3.7 Chloride 112 H Carbon Dioxide 24 BUN 36 H Creatinine 1.72 H Glucose 105 H Calcium 8.9 (1) Atrial fibrillation Atrial fibrillation type: longstanding persistent Qualified Code(s): I48.11 - Longstanding persistent atrial fibrillation (2) Colon cancer Colon location: hepatic flexure Qualified Code(s): C18.3 - Malignant neoplasm of hepatic flexure (3) Hypertension Hypertension type: essential hypertension Qualified Code(s): I10 - Essential (primary) hypertension (4) Hyperlipidemia Hyperlipidemia type: unspecified Qualified Code(s): E78.5 - Hyperlipidemia, unspecified
[2020-05-04] MEDS: LACTATED RINGER'S 1,000 ML IV SCH (05:28)
[2020-05-04 06:52] LABS: INR 5.5 (0.9-1.1); Prothrombin Time 52.5 Seconds (9.0-12.0)
[2020-05-04 07:14] LABS: BUN Creatinine Ratio 21.9 (10-20); Calcium 8.4 mg/dl (8.5-10.1); Creatinine Clr Calc Pharmacy 32.5 ml/min; Est GFR (African American) 38.8; Est GFR (Non-African American) 33.5; Potassium 3.5 mmol/L (3.5-5.1)
[2020-05-04] MEDS: METOPROLOL SUCC 25MG EXT REL TAB PO SCH ×2 (08:11→20:10)
[2020-05-04] MEDS: ATORVASTATIN 40 MG TAB PO SCH (08:11)
--- NOTE | 2020-05-04 13:15 | XRay Report ---
XR chest 2V PA/lateral HISTORY: cough COMPARISON: Chest 03/29/2020. FINDINGS: No pneumothorax. Trace right pleural effusion. Mild diffuse interstitial thickening, unchan ged. No evidence for pulmonary edema. No new focal lung consolidations to suggest pneumonia. The hear t remains mildly enlarged. Right subclavian Port-A-Cath terminates at the brachiocephalic/SVC junctio n. Surgical clips within the left axilla. IMPRESSION: 1. Stable mild cardiomegaly. 2. Trace right pleural effusion. 3. Mild diffuse interstitial thickening. This may be chronic or due to mild congestive change. ACT 112: Negative or not required by law. Electronically signed by: Nikunj Laureano M.D. 05/04/2020 1:13 PM
--- NOTE | 2020-05-04 17:52 | Hospitalist Progress Note ---
Date of Service May 04, 2020 Assessment & Plan (1) Acute kidney injury superimposed on chronic kidney disease: Acute kidney injury on CKD III Baseline Cr ~ Mid 1s Likely prerenal due to GI loses due to chemotherapy Renal USD:Atrophic right kidney. No evidence of hydronephrosis Cr:2.36>> 1.98>>1.72>>1.4 Continue to hold losartan, Lasix Monitor renal function Avoid nephrotoxic agents as able Bladder scan PRN Monitor volume status Discontinue IV fluids today (2) Hypokalemia: Normal magnesium levels Replete electrolytes as needed Monitor (3) Weakness generalized: Suspect multi-factorial Fall precautions Continue PT/OT--Recommends to return Home Leukocytosis Secondary to Decadron Completed Decadron course--started by Oncology as outpatient (4) Supratherapeutic INR: Patient had transient epistaxis 2 days prior to admission Received oral vitamin K 5 mg INR:9.7 >2.7> 2.1>>3.5>>5.5 Currently no bleeding issues Elevated INR likely secondary to dexamethasone use Continue to hold Coumadin for now Monitor INR Needs follow up with Coumadin clinic upon discharge Cough: Stable mild cardiomegaly. Trace right pleural effusion. Mild diffuse interstitial thickening. This may be chronic or due to mild congestive change. Resume diuretics tomorrow if Renal function remains stable (5) Ecchymosis of neck: Neck CT:There is no evidence of fracture or subluxation involving the cervical spine. Osteopenia and spondylotic change as above. Continue to monitor (6) Atrial fibrillation: Stable Continue metoprolol INR: 5.5 Hold Coumadin today (7) Colon cancer: s/p resection 03/08 currently receiving chemotherapy every 2 weeks Follows with as outpatient (8) Hypertension: Losartan held due to GERARD Continue Metoprolol (9) Hyperlipidemia: Continue Lipitor DVT Px: Coumadin on hold Supratherapeutic INR Code Status Full Code Disposition Likely discharge in next 24-48 hours Admission and Anticipated Discharge Date Admission Date: April 30, 2020 Subjective Patient is seen and examined at bedside No new complaints Continues to have minimal cough Renal function continues to improve Supratherapeutic INR, no bleeding issues Leukocytosis noted, afebrile Denies chest pain, SOB, dizziness, nausea, vomiting, abdominal pain Family at bedside Review of Systems Review of Systems: All systems reviewed & are unremarkable except as noted in HPI & below Physical Exam Physical Exam: Physical Exam: Vitals signs as noted above General Appearance:Elderly, no apparent distress Head: normocephalic, Atraumatic Eyes: normal inspection, EOMI Neck: supple, Trachea midline Respiratory/Chest: Normal breath sounds, CTA Chest: +Chemo port Cardiovascular: Irregularly irregular, No murmur Abdomen/GI:Soft, Non tender, Bowel sounds present Extremities/Musculoskelatal:normal inspection, 1+ B/L LE edema Neurologic/Psych:AAOX3, grossly no focal neurological deficits Skin: normal color, warm Results & Data Results & Data ([facility]) Vital Signs (Past 12 Hours) Vital Signs Temp Pulse Pulse Resp BP Pulse Ox 05/04/20 17:44 86 05/04/20 15:52 36.6 C 89 18 133/82 99 05/04/20 11:27 36.8 C 88 18 114/77 99 05/04/20 07:44 36.8 C 78 18 146/82 H 98 Laboratory Results BMP 05/04/20 06:04 Sodium 145 Potassium 3.5 Chloride 113 H Carbon Dioxide 26 BUN 31 H Creatinine 1.44 H Glucose 83 Calcium 8.4 L (1) Atrial fibrillation Atrial fibrillation type: longstanding persistent Qualified Code(s): I48.11 - Longstanding persistent atrial fibrillation (2) Colon cancer Colon location: hepatic flexure Qualified Code(s): C18.3 - Malignant neoplasm of hepatic flexure (3) Hypertension Hypertension type: essential hypertension Qualified Code(s): I10 - Essential (primary) hypertension (4) Hyperlipidemia Hyperlipidemia type: unspecified Qualified Code(s): E78.5 - Hyperlipidemia, unspecified
[2020-05-05 05:58] LABS: Hematocrit (blood only) 35.3 % (37-47); Hemoglobin 11.3 g/dL (12.0-16.0); Mean Corpuscular Hemoglobin 26.4 pg (25-34); Mean Corpuscular Volume 82.5 fL (80-100); Mean Platelet Volume 9.2 fL (7.4-10.4); Nucleated RBC # (auto) 0.06 K/uL (0-0); Nucleated RBC % (auto) 0.5 %; Platelet Count 221 K/uL (130-400); RDW Coefficient of Variation 16.5 % (11.5-14.5); RDW Standard Deviation 49.7 fL (36.4-46.3); Red Blood Count 4.28 M/uL (4.2-5.4); White Blood Count 13.68 K/uL (4.8-10.8)
[2020-05-05 06:23] LABS: BUN Creatinine Ratio 21.9 (10-20); Calcium 8.6 mg/dl (8.5-10.1); Creatinine Clr Calc Pharmacy 33.7 ml/min; Est GFR (African American) 40.5; Potassium 3.6 mmol/L (3.5-5.1)
[2020-05-05 06:26] LABS: Prothrombin Time 61.3 Seconds (9.0-12.0)
[2020-05-05 06:33] LABS: INR 6.4 (0.9-1.1)
[2020-05-05] MEDS ORDERED: PHYTONADIONE 5 MG TAB PO STA (06:39)
[2020-05-05] MEDS: ATORVASTATIN 40 MG TAB PO SCH (08:39)
[2020-05-05] MEDS: METOPROLOL SUCC 25MG EXT REL TAB PO SCH ×2 (08:39→20:03)
--- NOTE | 2020-05-05 16:29 | CT Scan Report ---
CT head/brain wo con CLINICAL HISTORY: confusion, elevated INR, r/o bleed COMPARISON STUDY: 04/29/2020 TECHNIQUE: Axial CT of the brain is performed from the vertex to the skull base. IV contrast was not administered for this examination. A dose lowering technique was utilized adhering to the principles of ALARA. CT DOSE: 614.27 mGy.cm FINDINGS: No intra or extra-axial mass lesions are visualized. There is no CT evidence of acute cortical infarc tion. There is no evidence of midline shift. There is no acute hemorrhage. No calvarial fractures ar e visualized. There are patchy white matter hypodensities likely on a small vessel basis. There is no evidence of pathologic ventricular dilatation. There is no evidence of acute sinusitis IMPRESSION: No acute intracranial findings ACT 112: Negative or not required by law. Electronically signed by: Tolu Ariat M.D. 05/05/2020 4:28 PM
--- NOTE | 2020-05-05 22:17 | Hospitalist Progress Note ---
Date of Service May 05, 2020 Assessment & Plan (1) Acute kidney injury superimposed on chronic kidney disease: CKD III with baseline creatinine of 1.1. Creatinine at time of admission 2.11. Acute kidney injury, probably due to volume depletion from combination of inadequate oral intake + diuretic therapy. Furosemide and losartan held. US kidneys showed atrophic right kidney, no evidence of hydronephrosis. Creatinine today = 1.39. Follow. (2) Supratherapeutic INR: INR at time of presentation was > 9.7. Received vitamin K in ED. INR fell to 2.7, but subsequently valdez to 6.4 this morning. Received another dose of vitamin K today. Cause of elevated INR uncertain. History of colon Ca, but not aware of any liver mets. ? adequate dietary intake of vitamin K. Continue to hold warfarin. Consider transition to DOAC (e.g., apixaban) in warfarin remains difficult to manage. (3) Atrial fibrillation: Rate controlled on metoprolol. Warfarin on hold due to elevated INR. Consider transition to DOAC (e.g., apixaban). (4) Hypertension: Continue metoprolol and losartan. (5) Leukocytosis: WBC 5820 on day of admission and valdez as high as 16,800. WBC today = 13,680. No apparent signs of infection. Follow. (6) Fall: PT / OT. Fall precautions. (7) Colon cancer: Status post right colectomy 02/23/20. (8) DVT prophylaxis: On warfarin with supratherapeutic INR. (9) Discharge planning issues: Anticipated discharge to home. Family Medicine follow-up with Dr. Pelayo. (10) Altered mental status: At the time of my initial evaluation, patient was alert and engaged in appropriate conversation. I did not perform any cognitive assessment. Nurse called around 1600 and reported that pt seemed to be very confused. I re-evaluated the patient. She denied any headache. Oriented to person, place, day of week, year. Could not name president. CT head negative for bleed. Suspect delirium / encephalopathy secondary to hospital stay. Follow neurocognitive status. Admission and Anticipated Discharge Date Admission Date: April 30, 2020 Subjective Recheck for multiple problems. Patient seen in their room around 1420. Denies any problems. No new bruises. No melena, hematochezia, or hematuria. PO intake good. Review of Systems: Constitutional- no fever. Cardiac- no chest pain. Pulmonary- no cough or SOB. GI- no nausea, vomiting, diarrhea - no urinary symptoms. Otherwise, as noted above. Physical Exam Constitutional: no acute distress Neck: ecchymosis left neck Respiratory: no respiratory distress Auscultation: lungs clear to auscu ltation bilaterally Cardiovascular: Rate/Rhythm: + irregularly irregular Heart Sounds: no gallop Vessels: no JVD Extremities: + edema (1+ pretibial); no calf tenderness Gastrointestinal (Abdomen): normal bowel sounds, soft, nontender, no hepatosplenomegaly Skin: no rashes, warm and dry Psychiatric: Orientation: alert and oriented x 3 Results & Data Results & Data ([facility]) Vital Signs (Past 12 Hours) Vital Signs Temp Pulse Pulse Pulse Resp BP BP 05/05/20 19:34 36.4 C L 95 H 18 127/79 05/05/20 16:02 36.5 C 103 H 18 117/70 05/05/20 15:07 89 05/05/20 12:36 36.5 C 97 H 18 114/73 Pulse Ox 05/05/20 19:34 99 05/05/20 16:02 97 05/05/20 15:07 05/05/20 12:36 99 Laboratory Results Laboratory Results - last 24 hr 05/05/20 05/05/20 05/05/20 05:30 05:30 05:30 WBC 13.68 H RBC 4.28 Hgb 11.3 L Hct 35.3 L MCV 82.5 MCH 26.4 MCHC 32.0 RDW Std Deviation 49.7 H RDW Coeff of Ingrid 16.5 H Plt Count 221 MPV 9.2 Absolute Nucleated RBC 0.06 H Nucleated RBC % (auto) 0.5 PT 61.3 H INR 6.4 H* Sodium 142 Potassium 3.6 Chloride 111 H Carbon Dioxide 25 Anion Gap 6.0 BUN 31 H Creatinine 1.39 H Est Cr Clr Drug Dosing 33.7 Est GFR ( Amer) 40.5 Est GFR (Non-Af Amer) 35.0 BUN/Creatinine Ratio 21.9 H Glucose 82 Calcium 8.6 (1) Atrial fibrillation Atrial fibrillation type: longstanding persistent Qualified Code(s): I48.11 - Longstanding persistent atrial fibrillation (2) Hypertension Hypertension type: essential hypertension Qualified Code(s): I10 - Essential (primary) hypertension (3) Colon cancer Colon location: hepatic flexure Qualified Code(s): C18.3 - Malignant neoplasm of hepatic flexure (4) Fall Encounter type: initial encounter Qualified Code(s): W19.XXXA - Unspecified fall, initial encounter
[2020-05-06 07:02] LABS: Hematocrit (blood only) 32.4 % (37-47); Mean Corpuscular Hemoglobin 27.8 pg (25-34); Mean Corpuscular Volume 81.8 fL (80-100); Mean Platelet Volume 9.1 fL (7.4-10.4); Platelet Count 205 K/uL (130-400); RDW Coefficient of Variation 16.7 % (11.5-14.5); RDW Standard Deviation 49.5 fL (36.4-46.3); Red Blood Count 3.96 M/uL (4.2-5.4); White Blood Count 11.38 K/uL (4.8-10.8)
[2020-05-06 07:07] LABS: INR 2.8 (0.9-1.1); Prothrombin Time 27.8 Seconds (9.0-12.0)
[2020-05-06] MEDS: METOPROLOL SUCC 25MG EXT REL TAB PO SCH ×2 (07:19→19:59)
[2020-05-06] MEDS: ATORVASTATIN 40 MG TAB PO SCH (07:20)
[2020-05-06 07:22] LABS: Eosinophils % (manual) 2.6 %; Lymphocytes % (manual) 14.9 %; Metamyelocytes # (manual) 0.69 K/uL (0-0); Metamyelocytes % (manual) 6.1 %; Microcytosis Present; Monocytes # (manual) 0.69 K/uL (0.11-0.59); Monocytes % (manual) 6.1 %; Neutrophils % (manual) 70.3 %; Toxic Granulation 1+
[2020-05-06 07:30] LABS: BUN Creatinine Ratio 20.9 (10-20); Calcium 8.5 mg/dl (8.5-10.1); Creatinine Clr Calc Pharmacy 36.4 ml/min; Est GFR (African American) 43.9; Est GFR (Non-African American) 37.9; Potassium 3.4 mmol/L (3.5-5.1)
--- NOTE | 2020-05-06 13:34 | XRay Report ---
XR chest 2V PA/lateral CLINICAL HISTORY: leukocytosis, hx colon ca COMPARISON STUDY: 01/02/2020 FINDINGS: The heart is borderline enlarged. There is a right-sided A-Port catheter. There is evidence for mild interstitial edema. Small right pleural effusion. There is no lobar consolidation. Surgical clips project over the left axillary region.[ IMPRESSION: Progressive interstitial thickening, likely secondary to mild interstitial pulmonary robinson a. Small right pleural effusion. No evidence of lobar consolidation ACT 112: Negative or not required by law. Electronically signed by: Tolu Arita M.D. 05/06/2020 1:33 PM
--- NOTE | 2020-05-06 13:53 | Ultrasound Report ---
ABDOMINAL ULTRASOUND, RIGHT UPPER QUADRANT HISTORY: leukocytosis, hx colon Ca. COMPARISON: None. FINDINGS: Pancreas: The pancreatic tail is obscured by overlying bowel gas. The remaining portions of the pancr eas are within normal limits. Liver: Unremarkable. Gallbladder: The gallbladder is surgically absent. CBD: Measures between 0.8 and 1.2 cm in diameter. Right kidney: No hydronephrosis. IMPRESSION: 1. Normal liver. 2. Dilated common bile duct which is likely due to the patient's age and postcholecystectomy state. R ecommend correlation with LFTs to exclude the less likely possibility of an obstructive process. ACT 112: Negative or not required by law. Electronically signed by: Nikunj Laureano M.D. 05/06/2020 1:52 PM
[2020-05-06 15:41] LABS: Appearance Urine Clear (Clear); Bacteria Urine Automated Negative (Negative); Bilirubin Urine Negative (Negative); Blood Urine Negative (Negative); Color Urine Yellow; Epithelial Cell Urine Auto >30 /lpf (0-5); Glucose Urine UA Negative (Negative); Ketones Urine Negative (Negative); Leukocyte Esterase Urine Trace (Negative); Nitrite Urine Negative (Negative); Protein Urine 1+ (Negative); RBC Urine Automated 0-4 /hpf (0-4); Urobilinogen Urine Negative (Negative)
--- NOTE | 2020-05-06 22:27 | Hospitalist Progress Note ---
Date of Service May 06, 2020 Assessment & Plan (1) Acute kidney injury superimposed on chronic kidney disease: CKD III with baseline creatinine of 1.1. Creatinine at time of admission 2.11. Acute kidney injury, probably due to volume depletion from combination of inadequate oral intake + diuretic therapy. Furosemide and losartan held. US kidneys showed atrophic right kidney, no evidence of hydronephrosis. Creatinine today = 1.30. Follow. (2) Supratherapeutic INR: INR at time of presentation was > 9.7. Received vitamin K in ED. INR fell to 2.7, but subsequently valdez to 6.4 05/06.. Received another dose of vitamin K. INR today = 2.8. Cause of elevated INR uncertain. Has been anorexic for uncertain reasons. History of colon Ca; no apparent liver mets per US. Continue to hold warfarin. Consider transition to DOAC (e.g., apixaban) in warfarin remains difficult to manage. (3) Atrial fibrillation: Rate controlled on metoprolol. Warfarin on hold due to elevated INR. Consider transition to DOAC (e.g., apixaban). (4) Hypertension: Continue metoprolol and losartan. (5) Leukocytosis: WBC 5820 on day of admission and valdez as high as 16,800. WBC today = 11,380. Procalcitonin = 1.14. No fever or specific signs / symptoms of infection. UA negative. No infiltrates on chest x-ray. Follow. (6) Fall: PT / OT. Fall precautions. (7) Colon cancer: Status post right colectomy 02/23/20. (8) Altered mental status: Episode of confusion afternoon of 05/05. Pt denied any headache. CT head negative for bleed. Suspect delirium / encephalopathy secondary to hospital stay. Follow neurocognitive status. (9) DVT prophylaxis: On warfarin with supratherapeutic INR. (10) Discharge planning issues: Anticipated discharge to home. Family Medicine follow-up with Dr. Pelayo. visiting this afternoon and given update. Admission and Anticipated Discharge Date Admission Date: April 30, 2020 Subjective Recheck for multiple problems. Patient seen in their room around 1050. Episode of confusion yesterday afternoon. Head CT negative for bleed. No cognitive issues today. Ambulating in room with walker. Review of Systems: Constitutional- no fever. Cardiac- no chest pain. Pulmonary- no cough or SOB. GI- no nausea, vomiting, diarrhea - no urinary symptoms. Otherwise, as noted above. Physical Exam Constitutional: no acute distress Neck: ecchymosis left posterolateral neck Respiratory: no respiratory distress Auscultation: lungs clear to auscultation bilaterally Cardiovascular: Rate/Rhythm: + irregularly irregular Heart Sounds: no gallop Vessels: no JVD Extremities: + edema (1+ pretibial); no calf tenderness Gastrointestinal (Abdomen): normal bowel sounds, soft, nontender, no hepatosplenomegaly Skin: no rashes, warm and dry Psychiatric: Orientation: alert and oriented x 3 (oriented to person, place, day of week, year, president) Results & Data Results & Data ([facility]) Vital Signs (Past 12 Hours) Vital Signs Temp Pulse Pulse Resp BP BP Pulse Ox 05/06/20 19:14 36.4 C L 87 20 112/73 98 05/06/20 16:39 88 05/06/20 15:54 36.7 C 103 H 18 110/76 100 05/06/20 11:34 36.5 C 95 H 18 109/73 98 Laboratory Results Laboratory Results - last 24 hr 05/06/20 05/06/20 05/06/20 06:21 06:21 06:21 WBC 11.38 H RBC 3.96 L Hgb 11.0 L Hct 32.4 L MCV 81.8 MCH 27.8 MCHC 34.0 RDW Std Deviation 49.5 H RDW Coeff of Ingrid 16.7 H Plt Count 205 MPV 9.1 Neutrophils % (Manual) 70.3 Lymphocytes % (Manual) 14.9 Monocytes % (Manual) 6.1 Eosinophils % (Manual) 2.6 Metamyelocytes % (Man) 6.1 Neutrophils # (Manual) 8.00 H Total Absolute Neuts 8.00 H Lymphocytes # (Manual) 1.70 Total Abs Lymphocytes 1.70 Monocytes # (Manual) 0.69 H Eosinophils # (Manual) 0.30 Metamyelocytes # (Man) 0.69 H Toxic Granulation 1+ Microcytosis Present PT 27.8 H INR 2.8 H Sodium 142 Potassium 3.4 L Chloride 112 H Carbon Dioxide 24 Anion Gap 6.0 BUN 27 H Creatinine 1.30 H Est Cr Clr Drug Dosing 36.4 Est GFR ( Amer) 43.9 Est GFR (Non-Af Amer) 37.9 BUN/Creatinine Ratio 20.9 H Glucose 85 Calcium 8.5 Procalcitonin Urine Color Urine Appearance Urine pH Ur Specific [place] Urine Protein Urine Glucose (UA) Urine Ketones Urine Blood Urine Nitrite Urine Bilirubin Urine Urobilinogen Ur Leukocyte Esterase Urine WBC (Auto) Urine RBC (Auto) U Hyaline Cast (Auto) U Epithel Cells (Auto) Urine Bacteria (Auto) 05/06/20 05/06/20 06:21 15:30 WBC RBC Hgb Hct MCV MCH MCHC RDW Std Deviation RDW Coeff of Ingrid Plt Count MPV Neutrophils % (Manual) Lymphocytes % (Manual) Monocytes % (Manual) Eosinophils % (Manual) Metamyelocytes % (Man) Neutrophils # (Manual) Total Absolute Neuts Lymphocytes # (Manual) Total Abs Lymphocytes Monocytes # (Manual) Eosinophils # (Manual) Metamyelocytes # (Man) Toxic Granulation Microcytosis PT INR Sodium Potassium Chloride Carbon Dioxide Anion Gap BUN Creatinine Est Cr Clr Drug Dosing Est GFR ( Amer) Est GFR (Non-Af Amer) BUN/Creatinine Ratio Glucose Calcium Procalcitonin 1.14 H Urine Color Yellow Urine Appearance Clear Urine pH 6.0 Ur Specific [place] 1.020 Urine Protein 1+ H Urine Glucose (UA) Negative Urine Ketones Negative Urine Blood Negative Urine Nitrite Negative Urine Bilirubin Negative Urine Urobilinogen Negative Ur Leukocyte Esterase Trace H Urine WBC (Auto) 1-5 Urine RBC (Auto) 0-4 U Hyaline Cast (Auto) 1-5 U Epithel Cells (Auto) >30 H Urine Bacteria (Auto) Negative (1) Atrial fibrillation Atrial fibrillation type: longstanding persistent Qualified Code(s): I48.11 - Longstanding persistent atrial fibrillation (2) Hypertension Hypertension type: essential hypertension Qualified Code(s): I10 - Essential (primary) hypertension (3) Fall Encounter type: initial encounter Qualified Code(s): W19.XXXA - Unspecified fall, initial encounter (4) Colon cancer Colon location: hepatic flexure Qualified Code(s): C18.3 - Malignant neoplasm of hepatic flexure
[2020-05-07 05:59] LABS: Hematocrit (blood only) 31.7 % (37-47); Hemoglobin 10.5 g/dL (12.0-16.0); Mean Corpuscular Hgb Conc 33.1 g/dL (32-36); Mean Corpuscular Volume 81.5 fL (80-100); Mean Platelet Volume 9.2 fL (7.4-10.4); Platelet Count 194 K/uL (130-400); RDW Coefficient of Variation 16.8 % (11.5-14.5); Red Blood Count 3.89 M/uL (4.2-5.4); White Blood Count 11.28 K/uL (4.8-10.8)
[2020-05-07 06:11] LABS: INR 2.6 (0.9-1.1); Prothrombin Time 26.4 Seconds (9.0-12.0)
[2020-05-07 06:28] LABS: BUN Creatinine Ratio 16.1 (10-20); Calcium 7.8 mg/dl (8.5-10.1); Creatinine Clr Calc Pharmacy 37.8 ml/min; Est GFR (African American) 46.1; Est GFR (Non-African American) 39.7; Potassium 3.3 mmol/L (3.5-5.1)
[2020-05-07 06:45] LABS: Basophils # (auto) 0.02 K/uL (0-0.2); Basophils % (auto) 0.2 %; Eosinophils # (auto) 0.12 K/uL (0-0.5); Eosinophils % (auto) 1.1 %; Immature Granulocytes # (auto) 0.76 K/uL (0.00-0.02); Immature Granulocytes % (auto) 6.7 %; Lymphocytes # (auto) 1.85 K/uL (1.2-3.4); Lymphocytes % (auto) 16.4 %; Monocytes # (auto) 1.04 K/uL (0.11-0.59); Monocytes % (auto) 9.2 %; Neutrophils # (auto) 7.49 K/uL (1.4-6.5); Neutrophils % (auto) 66.4 %; Ovalocytes 1+
[2020-05-07] MEDS ORDERED: POTASSIUM CHLORIDE CRTAB 20 MEQ TABCR PO ONE (06:52)
[2020-05-07] MEDS: METOPROLOL SUCC 25MG EXT REL TAB PO SCH (08:05)
[2020-05-07] MEDS: ATORVASTATIN 40 MG TAB PO SCH (08:05)
--- NOTE | 2020-05-07 13:09 | Hospitalist Progress Note ---
Date of Service May 07, 2020 Assessment & Plan (1) Acute kidney injury superimposed on chronic kidney disease: CKD III with baseline creatinine of 1.1. Creatinine at time of admission 2.11. Acute kidney injury, probably due to volume depletion from combination of inadequate oral intake + diuretic therapy. Furosemide and losartan held. US kidneys showed atrophic right kidney, no evidence of hydronephrosis. Creatinine today = 1.25. Discharge on reduced dose of furosemide as discussed below. Follow. (2) Supratherapeutic INR: INR at time of presentation was > 9.7. Received vitamin K in ED. INR fell to 2.7, but subsequently valdez to 6.4 05/06.. Received another dose of vitamin K. INR today = 2.6. Cause of elevated INR uncertain. History of colon Ca; no apparent liver mets per US. Suspect decreased oral intake of vitamin K due to chemotherapy. Likely that warfarin will continue to be difficulty to titrate. Discussed with Cardiology. Transition anticoagulation to apixaban. (3) Chronic diastolic heart failure: History of left ventricular diastolic dysfunction. Has taken furosemide 40 mg daily for some time. Presented with GERARD as outlined above. Furosemide held. Chest x-ray 05/06 showed borderline vascular prominence. Discharge on furosemide 40 mg MWF + other days PRN for SOB, edema, wt gain. Given CHF instructions. (4) Atrial fibrillation: Rate controlled on metoprolol. Warfarin on hold due to elevated INR. Discussed with Cardiology. Transition anticoagulation to apixaban. (5) Hypertension: Continue metoprolol and losartan. (6) Leukocytosis: WBC 5820 on day of admission and valdez as high as 16,800. WBC today = 11,280. Procalcitonin = 0.06. No fever or specific signs / symptoms of infection. UA negative. No infiltrates on chest x-ray. Leukocytosis may have been due to dexamethasone which patient was taking prior to admission. (7) Fall: PT / OT. Fall precautions. (8) Colon cancer: Status post right colectomy 02/23/20. (9) Altered mental status: Episode of confusion afternoon of 05/05. Pt denied any headache. CT head negative for bleed. Suspect delirium / encephalopathy secondary to hospital stay. Follow neurocognitive status. (10) DVT prophylaxis: On warfarin with supratherapeutic INR. (11) Discharge planning issues: Discharge to home. Family Medicine follow-up with Dr. Pelayo. given update. Admission and Anticipated Discharge Date Admission Date: April 30, 2020 Subjective Recheck for multiple problems. Patient seen in their room around 1030. Feels well. No fever. No chest pain or SOB. No nausea or vomiting. Anxious to go home. Physical Exam Constitutional: no acute distress Respiratory: no respiratory distress Auscultation: lungs clear to auscultation bilaterally Cardiovascular: Rate/Rhythm: + irregularly irregular Heart Sounds: no gallop Vessels: no JVD Extremities: + edema (1+ pretibial); no calf te nderness Gastrointestinal (Abdomen): normal bowel sounds, soft, nontender, no hepatosplenomegaly Skin: ecchymoses left neck and right lower extremity Psychiatric: Orientation: alert and oriented x 3 Results & Data Results & Data ([facility]) Vital Signs (Past 12 Hours) Vital Signs Temp Pulse Pulse Pulse Resp BP Pulse Ox 05/07/20 12:00 36.6 C 87 18 115/63 97 05/07/20 07:41 97 H 05/07/20 07:34 36.5 C 88 20 110/74 98 05/07/20 04:41 89 05/07/20 04:05 36.4 C L 89 18 120/74 97 Laboratory Results 05/07/20 05:31 05/07/20 05:31 (1) Atrial fibrillation Atrial fibrillation type: longstanding persistent Qualified Code(s): I48.11 - Longstanding persistent atrial fibrillation (2) Hypertension Hypertension type: essential hypertension Qualified Code(s): I10 - Essential (primary) hypertension (3) Fall Encounter type: initial encounter Qualified Code(s): W19.XXXA - Unspecified fall, initial encounter (4) Colon cancer Colon location: hepatic flexure Qualified Code(s): C18.3 - Malignant neoplasm of hepatic flexure
--- NOTE | 2020-05-10 03:16 | Discharge Summary ---
Date of Service Date of Admission: 04/30/20 Date of Discharge: 05/07/20 Admission HPI Per Admitting Provider This is an 85 y/o female with a PMH of colon cancer s/p resection for which she is currently on chemo, atrial fibrillation, mild concentric LVH, CKD3, HTN, hx breast cancer, dyslipidemia, diastolic dysfunction, and aortic sclerosis who presents to the ED after being referred by her outpatient provider with worsening renal function and rising INR. Pt was due for chemotherapy this week but her pre-chemo labs apparently showed mild GERARD with a creatinine of 1.6 so decision made to hold. Yesterday, her called with oncologist due to progressive weakness and ongoing N/V at home. She came into the office for IVF and they noticed a large ecchymotic area on her neck so apparently referred her to the ED for evaluation. Pt reports that she fell at home three days ago and caught her left shoulder/side/neck on the coffee table. Imaging in the ED yesterday was negative for fracture so she was sent home. Her INR was also noted to be elevated this week so she has held her Coumadin for the past 2-3 days. However, INR has continued to climb. She denies signs of active bleeding including no gingival bleeding, epistaxis, hematemsis, melena, hematochezia, hemoptysis or hematuria. Her oral intake has been limited the past few days due to the N/V although she reports those symptoms are improved today. She feels generally weak and tired. Denies fevers, chills, ST, runny nose, significant cough, CP, SOB or wheezing. Bowel pattern has been loose with occasional urgency since starting chemotherapy. This is not acutely worsened. Principal Diagnosis acute kidney injury elevated INR due to warfarin therapy Discharge Data Allergies Allergy/AdvReac Type Severity Reaction Status Date / Time loteprednol [From Lotemax] Allergy edema , Verified 04/30/20 15:32 hives amoxicillin [From Augmentin] AdvReac Intermediate lower abd Verified 04/30/20 15:32 pain, spasm clavulanic acid AdvReac Intermediate lower abd Verified 04/30/20 15:32 [From Augmentin] pain, spasm alendronate sodium AdvReac Muscle Pain Verified 04/30/20 15:32 codeine AdvReac achiness Verified 04/30/20 15:32 lisinopril AdvReac Cough Verified 04/30/20 15:32 Consultations 04/30/20 15:00 ED Decision to Admit Stat Ordered Studies 05/01/20 08:33 US renal/blad retro comp Routine 05/05/20 16:06 CT head/brain wo con Stat 05/06/20 13:30 US liver Routine Hospital Course (1) Acute kidney injury superimposed on chronic kidney disease: CKD III with baseline creatinine of 1.1. Creatinine at time of admission 2.11. Acute kidney injury, probably due to volume depletion from combination of inadequate oral intake + diuretic therapy. Furosemide and losartan held. US kidneys showed atrophic right kidney, no evidence of hydronephrosis. Creatinine day of discharge = 1.25. Discharge on reduced dose of furosemide as discussed below. Follow. (2) Supratherapeutic INR: INR at time of presentation was > 9.7. Received vitamin K in ED. INR fell to 2.7, but subsequently valdez to 6.4 05/06.. Received another dose of vitamin K. INR day of discharge = 2.6. Cause of elevated INR uncertain. History of colon Ca; no apparent liver mets per US. Suspect decreased oral intake of vitamin K due to chemotherapy. Likely that warfarin will continue to be difficulty to titrate. Discussed with Cardiology. Transition anticoagulation to apixaban. (3) Chronic diastolic heart failure: History of left ventricular diastolic dysfunction. Has taken furosemide 40 mg daily for some time. Presented with GERARD as outlined above. Furosemide held. Chest x-ray 05/06 showed borderline vascular prominence. Discharge on furosemide 40 mg MWF + other days PRN for SOB, edema, wt gain. Given CHF instructions. (4) Atrial fibrillation: Rate controlled on metoprolol. Warfarin on hold due to elevated INR. Discussed with Cardiology. Transition anticoagulation to apixaban. (5) Hypertension: Continue metoprolol and losartan. (6) Leukocytosis: WBC 5820 on day of admission and valdez as high as 16,800. WBC day of discharge = 11,280. Procalcitonin day of discharge = 0.06. No fever or specific signs / symptoms of infection. UA negative. No infiltrates on chest x-ray. Leukocytosis may have been due to dexamethasone which patient was taking prior to admission. (7) Fall: PT / OT. Fall precautions. Ambulating with walker independently by discharge. (8) Colon cancer: Status post right colectomy 02/23/20. (9) Altered mental status: Episode of confusion afternoon of 05/05. Pt denied any headache. CT head negative for bleed. Suspect delirium / encephalopathy secondary to hospital stay. Follow neurocognitive status. (10) DVT prophylaxis: On warfarin with supratherapeutic INR. (11) Discharge planning issues: Discharged to home. Family Medicine follow-up with Dr. Pelayo. Medical Oncology follow-up with Dr. Rodriguez. Total Time Total Time Spent Total Time Spent (In Minutes): 40 Discharge Plan Discharge Items Patient Disposition: Home - Self-Care Reason For Visit: weakness, dehydration, high INR Discharge Diagnosis: weakness, dehydration, high INR Activity: As commented below Activity Comment: Use walker. Non-emergency contact: Primary Care Provider, Hospitalist and Insurance Salesman Call non-emergency contact if: you have any medication questions, your symptoms worsen and your temperature is above 101 Follow-up/Referrals: Jersey Avendaño MD [Physician] - (06/25/2020 9:30 AM Jersey Avendaño MD Cardiology, [facility]) Eddie Pelayo MD [Primary Care Provider] - 05/10/20 11:20 am (Date & Time 05/10/2020 11:20 AM Eddie Pelayo MD [facility] ) Diet: Heart Healthy Addtl Attending Provider Instructions: MEDICATION CHANGES: Stop warfarin. It can be hard to adjust dosing if your appetite is not good. Start apixaban (Eliquis) 5 mg twice a day. New instructions for furosemide (Lasix): Weigh yourself daily. Take 40 mg on SundayMay 08, then... 40 mg in the morning on Mondays, Wednesdays, Fridays. 40 mg on the other days if: weight goes up more than 3 lbs you have swelling of legs or feet you feel short of breath New instructions for potassium chloride: Take 1 pill (10 mEQ) twice a day. SUMMARY OF TEST RESULTS: Your INR was very high when you were admitted. This means that your blood was too thin from warfarin. Kidney tests indicated that you were very dehydrated. Potassium level was low. White blood cell count was a little high, but you did not have a fever and there was no sign of pneumonia or bladder infection. RECOMMENDATIONS FOR FOLLOW-UP: Please ask Dr. Pelayo to check blood work in clinic: basic metabolic profile OTHER INSTRUCTIONS: Seek medical attention if you have: * temperature above 101 * chest pain or trouble breathing * abdominal pain, nausea, vomiting * diarrhea, dark stools or bloody stools * any unanswered questions or concerns Call 911 if symptoms are severe. Please take good care of yourself. Call if you have any questions or problems. You can reach a [facility] hospitalist on duty at [facility] 24 hours a day by calling [phone]. My cell # is [phone]. Pending Studies at Discharge: No Stand-Alone Forms: My [facility], Smoking Cessation Medications and DC Order Prescriptions: New Eliquis 5 mg tablet 5 mg PO BID Qty: 60 RF: 5 potassium chloride 10 mEq capsule, extended release 10 meq PO BID Qty: 60 RF: 5 Continued furosemide [Lasix] 40 mg Tablet 40 mg PO QAM Qty: 0 RF: 0 losartan [Cozaar] 50 mg Tablet 50 mg PO QAM RF: 0 atorvastatin [Lipitor] 40 mg Tablet 40 mg PO QAM RF: 0 metoprolol succinate 25 mg Tablet Extended Release 24 Hr 25 mg PO BID RF: 0 Restasis 0.05 % Dropperette 1 drp OPHTHALMIC (EYE) BID RF: 0 ondansetron HCl [Zofran] 8 mg tablet 8 mg PO Q8 PRN (Reason: Nausea) RF: 0 Discontinued potassium chloride 10 mEq Capsule, Extended Release 10 meq PO QAM RF: 0 warfarin 5 mg Tablet 2.5 mg PO HS RF: 0 dexamethasone [Decadron] 4 mg tablet 4 mg PO BID RF: 0 Discharge Orders: Discharge Order (Routine); Ordered 05/07/20 Ordered By: Gadiel Santiago Admission Data Admit Date/Time: 04/30/20 15:45 Attending Provider: Gadiel Santiago Admit Provider: Garrick Amato Primary Care Provider: Eddie Pelayo Other Providers: Garrick Amato ; Simone Blackburn Other Interventions: Discharge Summary Assessment (RN) Last Done: 05/07/20 13:52
== END 2020-05-07 15:39 | disposition home or self-care (01) | DRG 683 ==
LOC: ED 12:46 → SUATTDRO 15:45 → 2N 15:45

== ENCOUNTER 2020-09-28 11:38 | Inpatient (IN) ==
[2020-09-28] MEDS ORDERED: PANTOprazole 80 MG in DEXTROSE 5% 100 ML IV ONE (12:02)
[2020-09-28 12:12] LABS: iSTAT Creatinine 1.9 mg/dl (0.6-1.3); iSTAT Hemoglobin 12.9 g/dl (12.0-16.0); iSTAT Ionized Calcium 1.16 mmol/l (1.12-1.32); iSTAT Potassium 3.9 mmol/L (3.3-5.0)
[2020-09-28 12:12] LABS: Basophils # (auto) 0.01 K/uL (0-0.2); Basophils % (auto) 0.2 %; Eosinophils # (auto) 0.02 K/uL (0-0.5); Eosinophils % (auto) 0.3 %; Hematocrit (blood only) 38.5 % (37-47); Hemoglobin 12.3 g/dL (12.0-16.0); Immature Granulocytes # (auto) 0.02 K/uL (0.00-0.02); Immature Granulocytes % (auto) 0.3 %; Lymphocytes # (auto) 1.15 K/uL (1.2-3.4); Lymphocytes % (auto) 18.3 %; Mean Corpuscular Hemoglobin 28.2 pg (25-34); Mean Corpuscular Hgb Conc 31.9 g/dL (32-36); Mean Corpuscular Volume 88.3 fL (80-100); Monocytes # (auto) 0.62 K/uL (0.11-0.59); Monocytes % (auto) 9.8 %; Neutrophils # (auto) 4.48 K/uL (1.4-6.5); Neutrophils % (auto) 71.1 %; Platelet Count 145 K/uL (130-400); RDW Coefficient of Variation 19.1 % (11.5-14.5); Red Blood Count 4.36 M/uL (4.2-5.4)
--- NOTE | 2020-09-28 12:21 | Emergency Department Note ---
History of Present Illness General Chief complaint: GI Bleed Stated complaint: BLOOD IN STOOL AND VOMITING BLOOD AT TIMES Time Seen by Provider: 09/28/20 11:47 History of Present Illness Provider Complaint: + blood streaked emesis and + gross hematochezia Onset (ago): 1 day(s) Pain Consistency: + intermittent Current Pain Intensity: 0 Relieved By: + none Exacerbated By: + none Context: + anticoagulant use (eliquis); no liver disease, no rectal trauma, no alcohol abuse, no known esophageal varices and no near syncope Associated symptoms: + nausea and + vomiting; no abdominal pain, no epistaxis, no fever, no chills, no headaches, no loss of appetite, no malaise, no easy bruising, no shortness of breath, no syncope and no weakness Home Medications Medication Instructions Recorded Confirmed Type atorvastatin [Lipitor] 40 mg PO QAM 02/17/20 09/28/20 History losartan [Cozaar] 50 mg PO QAM 02/17/20 09/28/20 History metoprolol succinate 25 mg PO BID 02/17/20 09/28/20 History furosemide [Lasix] 40 mg PO QAM #0 tab 05/07/20 09/28/20 Rx potassium chloride 10 meq PO BID #60 cap 05/07/20 09/28/20 Rx apixaban [Eliquis] 2.5 mg PO BID 09/28/20 09/28/20 History Allergies Allergy/AdvReac Type Severity Reaction Status Date / Time loteprednol [From Lotemax] Allergy edema , Verified 09/28/20 12:28 hives amoxicillin [From Augmentin] AdvReac Intermediate lower abd Verified 09/28/20 12:28 pain, spasm clavulanic acid AdvReac Intermediate lower abd Verified 09/28/20 12:28 [From Augmentin] pain, spasm alendronate sodium AdvReac Muscle Pain Verified 09/28/20 12:28 codeine AdvReac achiness Verified 09/28/20 12:28 lisinopril AdvReac Cough Verified 09/28/20 12:28 Past Med/Surg History Medical History Aortic valve sclerosis Atrial fibrillation Chronic diastolic heart failure Colon cancer Colon cancer Depression Diverticular disease history Hx of breast cancer 06/1999 chemo and surgical treatment Hyperlipidemia Hypertension Mild concentric left ventricular hypertrophy (LVH) Osteoarthritis Osteoporosis Reflux esophagitis Urine incontinence Vitamin D deficiency Surgical History History of cholecystectomy History of knee replacement right and left Hx of colonoscopy february 2020 Hx of hysterectomy Hx of mastectomy LEFT S/P partial colectomy 2019 Family History Mother Coronary heart disease Father CHF (congestive heart failure) Brother Valvular heart disease Social History Smoking Status: Never smoker Tobacco Type: Cigarettes Second Hand Exposure: Yes (dad smoked); Hx Alcohol Use: No Hx Substance Use: No Preferred Language: Angolan Communication Ability: Effective Micromatic Hone Operator Required: No Beliefs That Will Affect Care: None marital status: Current Living Situation: Spouse Current Living Situation Comment: Feels Safe at Home: Yes Assistive Devices: Glasses and Walker Review of Systems A total of 10 systems reviewed and were otherwise negative Physical Exam Vital Signs: Vital Signs - 24 hr 09/28/20 11:40 09/28/20 11:52 Temperature 36.3 C L Temperature Source Oral Pulse Rate 108 H Pulse Rhythm Regular Pulse Strength Normal Respiratory Rate 20 Respiratory Effort / Characteristics Non-Labored Sponta neous Respiratory Depth Normal Respiratory Patter n Regular Blood Pressure 131/74 Blood Pressure Mia n 93 Blood Pressure Pos ition Sitting Pulse Oximetry 100 96 Oxygen Delivery Me thod Room Air Room Air Sepsis Recent Feve r Within 48 Hours No Sepsis New/Unexpla ined Change in Men concepcion Status No Sepsis Action Take n by Nursing No Action Required Physical Exam: Physical Exam GENERAL: She is oriented to person, place, and time. She appears well-developed and well-nourished. She does not appear distressed. HENT: Exam performed. -Head: Normocephalic and atraumatic. -Right Ear: External ear normal. No mastoid tenderness. -Left Ear: External ear normal. No mastoid tenderness. -Mouth/Throat: The oropharynx is clear and moist. No trismus in the jaw. No dental abscesses or uvula swelling. No oropharyngeal exudate or tonsillar abscesses. EYES: Conjunctivae and EOM are normal. Pupils are equal, round, and reactive to light. Right eye exhibits no discharge. Left eye exhibits no discharge. No scleral icterus. NECK: Normal range of motion. Neck supple. No JVD present. No spinous process tenderness present. No carotid bruit present. No rigidity. No tracheal deviation and normal range of motion present. No Brudzinski's sign and no Kernig's sign noted. CV: Tachycardic rate, irregular rhythm, normal heart sounds and intact distal pulses. There is no peripheral edema. Palpable radial pulses bue. PULM/CHEST: Effort normal and breath sounds normal. No respiratory distress. No stridor. She has no wheezes. She has no rales. -Chest Wall: She exhibits no tenderness. ABD: The abdomen is soft. Bowel sounds are normal. She has no distension. No mass is present. Pain on palpation of the left upper quadrant and epigastric area. There is no rebound, no guarding, no Davenport's sign and no tenderness at McBurney's point. Rovsig negative MUSC/SKEL: Normal range of motion. There is no peripheral edema, tenderness or deformity. LYMPH: No cervical adenopathy. NEURO: She is alert and oriented to person, place, and time. She has normal strength. No cranial nerve deficit or sensory deficit. Coordination and gait normal. GCS eye subscore is 4. GCS verbal subscore is 5. GCS motor subscore is 6. Cerebellar tests wnl. SKIN: Skin is warm and dry. She is not diaphoretic. PSYCH: She has a normal mood and affect. Behavior is normal. Judgment and thought content normal. Course Course 1147: The patient was evaluated in room B7. A complete history and physical exam was performed. Cardiac monitoring: An order was placed for continuous cardiac monitoring. The monitor shows a rate of 100-120 with atrial fibrillation rhythm 1320: Vital signs stable. Labs show a hemoglobin of 12.3. Creatinine is elevated 1.9. Patient's baseline creatinine in April 2020 was within normal limits. Given the patient's acute kidney injury, pain on palpation left upper quadrant, and GI bleeding, it is thought that the patient could be suffering from ischemic colitis. Patient is unable to get CTA of the abdomen due to her elevated creatinine. Will admit the patient to the [facility] team who will have the patient evaluated by GI for possible further work-up. Discussed with Lilian Oscar who stated to admit to Dr. David. Administered Medications Sodium Chloride (Nss 1000ml) 1,000 mls @ 125 mls/hr IV .Q8H JAYA Stop: 10/28/20 11:59 Last Admin: 09/28/20 12:41 Dose: 125 mls/hr Documented by: [id number] Pantoprazole Sodium 40 mg/ (Dextrose) 100 mls @ 20 mls/hr IV Q5H JAYA Stop: 10/28/20 12:14 Last Admin: 09/28/20 13:08 Dose: 8 mg/hr, 20 mls/hr Documented by: [id number] Discontinued Medications Pantoprazole Sodium 80 mg/ (Dextrose) 120 mls @ 400 mls/hr IV NOW ONE Stop: 09/28/20 12:19 Last Infusion: 09/28/20 13:11 Dose: 0 mls/hr Documented by: [id number] Admin: 09/28/20 12:41 Dose: 400 mls/hr Documented by: [id number] Medical Decision Making Laboratory Data Result diagrams: 09/28/20 11:55 09/28/20 11:55 Lab Results 09/28/20 09/28/20 09/28/20 Range/Units 11:55 11:55 11:55 WBC 6.30 (4.8-10.8) K/uL RBC 4.36 (4.2-5.4) M/uL Hgb 12.3 (12.0-16.0) g/dL POC Hgb (12.0-16.0) g/dl Hct 38.5 (37-47) % POC Hct (37-47) % MCV 88.3 (80-100) fL MCH 28.2 (25-34) pg MCHC 31.9 L (32-36) g/dL RDW Std Deviation 61.0 H (36.4-46.3) fL RDW Coeff of Ingrid 19.1 H (11.5-14.5) % Plt Count 145 (130-400) K/uL MPV 9.0 (7.4-10.4) fL Immature Gran % (Auto) 0.3 % Neut % (Auto) 71.1 % Lymph % (Auto) 18.3 % [place] % (Auto) 9.8 % Eos % (Auto) 0.3 % Baso % (Auto) 0.2 % Neut # (Auto) 4.48 (1.4-6.5) K/uL Lymph # (Auto) 1.15 L (1.2-3.4) K/uL [place] # (Auto) 0.62 H (0.11-0.59) K/uL Eos # (Auto) 0.02 (0-0.5) K/uL Baso # (Auto) 0.01 (0-0.2) K/uL Immature Gran # (Auto) 0.02 (0.00-0.02) K/uL PT 12.4 H (9.0-12.0) Seconds INR 1.2 H (0.9-1.1) APTT 25.1 (21.0-31.0) Seconds PTT Ratio 1.0 POC Sodium (135-144) mmol/L Sodium 143 (136-145) mmol/L POC Potassium (3.3-5.0) mmol/L Potassium 3.9 (3.5-5.1) mmol/L POC Chloride (101-112) mmol/L Chloride 107 (98-107) mmol/L Carbon Dioxide 27 (21-32) mmol/L POC Total CO2 (24-31) mmol/L Anion Gap 9.0 (3-11) POC Anion Gap (16-25) mmol/L POC BUN (7-18) mg/dl BUN 20 H (7-18) mg/dl Creatinine 1.96 H (0.6-1.2) mg/dl POC Creatinine (0.6-1.3) mg/dl Est Cr Clr Drug Dosing 20.0 ml/min Est GFR ( Amer) 26.7 Est GFR (Non-Af Amer) 23.1 BUN/Creatinine Ratio 10.1 (10-20) Glucose 116 H (70-99) mg/dl POC Glucose (other) (70-99) mg/dl Calcium 9.1 (8.5-10.1) mg/dl POC Ioniz Calcium Anatoly (1.12-1.32) mmol/l Total Bilirubin 1.0 (0.2-1) mg/dl Direct Bilirubin 0.3 H (0-0.2) mg/dl AST 39 H (15-37) U/L ALT 26 (12-78) U/L Alkaline Phosphatase 106 (45-117) U/L Troponin I 0.021 (0-0.045) ng/ml Total Protein 6.5 (6.4-8.2) gm/dl Albumin 3.3 L (3.4-5.0) gm/dl Lipase 146 (73-393) U/L Blood Type Antibody Screen 09/28/20 09/28/20 Range/Units 12:00 12:02 WBC (4.8-10.8) K/uL RBC (4.2-5.4) M/uL Hgb (12.0-16.0) g/dL POC Hgb 12.9 (12.0-16.0) g/dl Hct (37-47) % POC Hct 38 (37-47) % MCV (80-100) fL MCH (25-34) pg MCHC (32-36) g/dL RDW Std Deviation (36.4-46.3) fL RDW Coeff of Ingrid (11.5-14.5) % Plt Count (130-400) K/uL MPV (7.4-10.4) fL Immature Gran % (Auto) % Neut % (Auto) % Lymph % (Auto) % [place] % (Auto) % Eos % (Auto) % Baso % (Auto) % Neut # (Auto) (1.4-6.5) K/uL Lymph # (Auto) (1.2-3.4) K/uL [place] # (Auto) (0.11-0.59) K/uL Eos # (Auto) (0-0.5) K/uL Baso # (Auto) (0-0.2) K/uL Immature Gran # (Auto) (0.00-0.02) K/uL PT (9.0-12.0) Seconds INR (0.9-1.1) APTT (21.0-31.0) Seconds PTT Ratio POC Sodium 140 (135-144) mmol/L Sodium (136-145) mmol/L POC Potassium 3.9 (3.3-5.0) mmol/L Potassium (3.5-5.1) mmol/L POC Chloride 101 (101-112) mmol/L Chloride (98-107) mmol/L Carbon Dioxide (21-32) mmol/L POC Total CO2 25 (24-31) mmol/L Anion Gap (3-11) POC Anion Gap 19.0 (16-25) mmol/L POC BUN 20 H (7-18) mg/dl BUN (7-18) mg/dl Creatinine (0.6-1.2) mg/dl POC Creatinine 1.9 H (0.6-1.3) mg/dl Est Cr Clr Drug Dosing ml/min Est GFR ( Amer) Est GFR (Non-Af Amer) BUN/Creatinine Ratio (10-20) Glucose (70-99) mg/dl POC Glucose (other) 119 H (70-99) mg/dl Calcium (8.5-10.1) mg/dl POC Ioniz Calcium Anatoly 1.16 (1.12-1.32) mmol/l Total Bilirubin (0.2-1) mg/dl Direct Bilirubin (0-0.2) mg/dl AST (15-37) U/L ALT (12-78) U/L Alkaline Phosphatase (45-117) U/L Troponin I (0-0.045) ng/ml Total Protein (6.4-8.2) gm/dl Albumin (3.4-5.0) gm/dl Lipase (73-393) U/L Blood Type A Positive Antibody Screen NEGATIVE Imaging Data Radiologist's Impression: AP CHEST WITH ABDOMINAL SERIES CLINICAL HISTORY: Vomiting. Diarrhea. FINDINGS: An AP upright chest radiograph is compared to study dated 05/06/2020. The examination is degraded by patient rotation. A right subclavian central venous infusion port is unchanged in position. The heart is enlarged noting atherosclerotic calcification of the thoracic aorta. The pulmonary vasculature is noncongested. Chronic interstitial thickening is similar to previous. There is mild elevation of the left hemidiaphragm with bibasilar scarring/atelectasis. No pneumothorax is seen. The skeletal structures are osteopenic. The bony thorax is grossly intact. Surgical clips are noted in the left axilla. Supine and decubitus abdominal radiographs are correlated with abdominal ultra sound dated 05/06/2020. Cholecystectomy clips and suture material are seen in the right upper quadrant. There is a nonobstructed abdominal bowel gas pattern. No evidence of intraperitoneal free air is seen. There are no abnormal abdominal calcifications. The lumbosacral spine and bony pelvis appear intact. There is advanced lumbosacral spondylosis. IMPRESSION: 1. Mild cardiomegaly with no acute cardiopulmonary abnormality. 2. Nonobstructed abdominal bowel gas pattern. ACT 112: Negative or not required by law. Electronically signed by: Ben Valencia M.D. 09/28/2020 1:14 PM Dictated: 09/28/20 1309 Transcribed: 09/28/20 1309 ECG Data Indication: vomiting Rate (beats per minute): 121 Rhythm: atrial fibrillation Findings: + LBBB; no ST depression, no ST elevation and no prolonged QT Additional Comments: sgarbosa negative [facility] [place] Narrative 1147: The patient was evaluated in room B7. A complete history and physical exam was performed. Cardiac monitoring: An order was placed for continuous cardiac monitoring. The monitor shows a rate of 100-120 with atrial fibrillation rhythm 1320: Vital signs stable. Labs show a hemoglobin of 12.3. Creatinine is elevated 1.9. Patient's baseline creatinine in April 2020 was within normal limits. Given the patient's acute kidney injury, pain on palpation left upper quadrant, and GI bleeding, it is thought that the patient could be suffering from ischemic colitis. Patient is unable to get CTA of the abdomen due to her elevated creatinine. Will admit the patient to the [facility] hospitalist team who will have the patient evaluated by GI for possible further work-up. Discussed with Lilian Oscar who stated to admit to Dr. Hernandez. Impression & Plan GIB (gastrointestinal bleeding), Atrial fibrillation, GERARD (acute kidney injury) Discharge Plan Visit Data Chief Complaint: GI Bleed Stated Complaint: BLOOD IN STOOL AND VOMITING BLOOD AT TIMES ED Provider: Ga Nagy Discharge Problem: GIB (gastrointestinal bleeding), Atrial fibrillation, GERARD (acute kidney injury) Patient Disposition: Being Evaluated by Hospitalist Forms Stand Alone Forms: [facility] Prescriptions Prescriptions: No Action furosemide [Lasix] 40 mg Tablet 40 mg PO QAM Qty: 0 RF: 0 potassium chloride 10 mEq capsule, extended release 10 meq PO BID Qty: 60 RF: 5 losartan [Cozaar] 50 mg Tablet 50 mg PO QAM RF: 0 atorvastatin [Lipitor] 40 mg Tablet 40 mg PO QAM RF: 0 metoprolol succinate 25 mg Tablet Extended Release 24 Hr 25 mg PO BID RF: 0 Eliquis 2.5 mg tablet 2.5 mg PO BID RF: 0 Referrals Referrals: Eddie Pelayo MD [Primary Care Provider] - Discharge Problem: GIB (gastrointestinal bleeding) Qualifiers: GI bleed type/associated pathology: unspecified gastrointestinal hemorrhage type Qualified Code(s): K92.2 - Gastrointestinal hemorrhage, unspecified Atrial fibrillation Qualifiers: Atrial fibrillation type: unspecified Qualified Code(s): I48.91 - Unspecified atrial fibrillation
[2020-09-28 12:24] LABS: INR 1.2 (0.9-1.1); Partial Thromboplastin Time 25.1 Seconds (21.0-31.0); Prothrombin Time 12.4 Seconds (9.0-12.0)
[2020-09-28 12:33] LABS: Albumin Level 3.3 gm/dl (3.4-5.0); BUN Creatinine Ratio 10.1 (10-20); Bilirubin Direct 0.3 mg/dl (0-0.2); Calcium 9.1 mg/dl (8.5-10.1); Est GFR (African American) 26.7; Est GFR (Non-African American) 23.1; Potassium 3.9 mmol/L (3.5-5.1)
[2020-09-28 12:38] LABS: Total Protein 6.5 gm/dl (6.4-8.2); Troponin I 0.021 ng/ml (0-0.045)
[2020-09-28] MEDS: SODIUM CHLORIDE 0.9% 1000ML 1,000 ML IV SCH ×2 (12:41→20:45)
[2020-09-28] MEDS: PANTOprazole 40 MG in DEXTROSE 5% 100 ML IV SCH ×3 (13:08→22:43)
--- NOTE | 2020-09-28 13:15 | XRay Report ---
AP CHEST WITH ABDOMINAL SERIES CLINICAL HISTORY: Vomiting. Diarrhea. FINDINGS: An AP upright chest radiograph is compared to study dated 05/06/2020. The examination is degraded by p atient rotation. A right subclavian central venous infusion port is unchanged in position. The heart is enlarged noting atherosclerotic calcification of the thoracic aorta. The pulmonary vasculature is noncongested. Chronic interstitial thickening is similar to previous. There is mild elevation of the left hemidiaphragm with bibasilar scarring/atelectasis. No pneumothorax is seen. The skeletal structu res are osteopenic. The bony thorax is grossly intact. Surgical clips are noted in the left axilla. Supine and decubitus abdominal radiographs are correlated with abdominal ultrasound dated 05/06/2020. Cholecystectomy clips and suture material are seen in the right upper quadrant. There is a nonobstruc madi abdominal bowel gas pattern. No evidence of intraperitoneal free air is seen. There are no abnorm al abdominal calcifications. The lumbosacral spine and bony pelvis appear intact. There is advanced l umbosacral spondylosis. IMPRESSION: 1. Mild cardiomegaly with no acute cardiopulmonary abnormality. 2. Nonobstructed abdominal bowel gas pattern. ACT 112: Negative or not required by law. Electronically signed by: Ben Valencia M.D. 09/28/2020 1:14 PM
--- NOTE | 2020-09-28 13:29 | History & Physical Report ---
Date of Service September 28, 2020 Assessment & Plan (1) GIB (gastrointestinal bleeding): This is an 85yo F with a PMH of colon cancer (s/p partial colectomy in 03/08, on FOLFOX chemotherapy currently), persistent atrial fibrillation on Eliquis, CKD 3, diastolic dysfunction, hypertension, aortic sclerosis and other medical problems as below who presents with GI bleed starting this morning. Episode of hematemesis, hematochezia and epistaxis this morning History of colon ca on chemo, A fib on Eliquis (last dose yesterday evening) Tachycardic in 110s, BP stable at 129/92. H&H 12.9/38.5. BUN 20, creatinine 1.96 (baseline Cr ~1.5). Heme positive rectal exam Keep NPO, NSS @ 125 ml/hr, continue IV protonix and drip, hold Eliquis Discussed with GI, who will evaluate Monitor H&H (2) Acute kidney injury superimposed on chronic kidney disease: Cr elevated at 1.96 (baseline ~1.5) in setting of acute GI bleed. Gentle rehydration, avoid nephrotoxic agents. Hold Lasix, losartan. Monitor daily BMP (3) Colon cancer: Adenocarcinoma diagnosed last summer, s/p R hemicolectomy in 02/23/20 Currently receiving FOLFOX chemotherapy every 2 weeks (last received 2 weeks ago) (4) Atrial fibrillation: A fib with RVR in 110s after vomiting AM dose of Toprol. Given 2.5mg IV Lopressor x 1, AM Toprol dose Continue Toprol. Holding Eliquis in setting of GI bleed Monitor on telemetry (5) LBBB (left bundle branch block): New finding on EKG today. No chest pain, initial troponin negative. Routine TTE to evaluate in setting of FOLFOX chemo (6) Hypertension: Normotensive. Continue Toprol (7) Chronic diastolic heart failure: Appears dry on exam. Receiving gentle IV fluids. Continue Beta she. Plan to hold AM Lasix dose tomorrow in setting of GERARD DVT Ppx: SCDs Code status: FULL PCP: Gita Dispo: Admit to PCU. Plan to return home once medically stable. Patient seen in collaboration with Dr. Hernandez. Please see addendum. History of Present Illness Chief Complaint: GI bleed Primary Care Provider: Eddie Pelayo MD This is an 85yo F with a PMH of colon cancer (s/p partial colectomy in 03/08, on FOLFOX chemotherapy currently), persistent atrial fibrillation on Eliquis, CKD 3, diastolic dysfunction, hypertension, aortic sclerosis and other medical problems as below who presents with GI bleed starting this morning. Patient was getting ready for chemotherapy infusion and went to use the bathroom before leaving. Had sudden onset nausea with one episode of emesis with presence of a few bright red blood clots the size of a nickel. Denies any coffee-ground emesis. Then developed a nosebleed. Had large episode of bright red blood per rectum noticed on tissue paper. Denies any melena. Has not recurred since that 1 episode. Came to ED for further evaluation. Does endorse epigastric and lower abdominal pain after eating that has been present for the past week. No abdominal pain now. Denies fever, chills, lightheadedness or headache. No chest pain, palpitations or shortness of breath,nausea, vomiting, dysuria or hematuria. In ED, patient tachycardic at 108 with EKG showing A. fib with RVR. BP stable at 129/92. H&H 12.9/38.5. BUN 20, creatinine 1.96 (baseline Cr ~1.5). Heme positive rectal exam. Covid screen negative. Chest/abdomen x-ray with mild cardiomegaly without acute cardiopulmonary abnormality. Also with nonobstructive bowel gas pattern. Allergies Allergy/AdvReac Type Severity Reaction Status Date / Time loteprednol [From Lotemax] Allergy edema , Verified 09/28/20 12:28 hives amoxicillin [From Augmentin] AdvReac Intermediate lower abd Verified 09/28/20 12:28 pain, spasm clavulanic acid AdvReac Intermediate lower abd Verified 09/28/20 12:28 [From Augmentin] pain, spasm alendronate sodium AdvReac Muscle Pain Verified 09/28/20 12:28 codeine AdvReac achiness Verified 09/28/20 12:28 lisinopril AdvReac Cough Verified 09/28/20 12:28 Home Medications Medication Instructions Recorded Confirmed Type atorvastatin [Lipitor] 40 mg PO QAM 02/17/20 09/28/20 History losartan [Cozaar] 50 mg PO QAM 02/17/20 09/28/20 History metoprolol succinate 25 mg PO BID 02/17/20 09/28/20 History furosemide [Lasix] 40 mg PO QAM #0 tab 05/07/20 09/28/20 Rx potassium chloride 10 meq PO BID #60 cap 05/07/20 09/28/20 Rx apixaban [Eliquis] 2.5 mg PO BID 09/28/20 09/28/20 History cholecalciferol (vitamin D3) 50 mcg PO DAILY 09/28/20 09/28/20 History cyclosporine [Restasis] 0.05 drp OPB Q6 PRN 09/28/20 09/28/20 History ondansetron HCl 8 mg PO Q8H PRN 09/28/20 09/28/20 History prochlorperazine maleate 10 mg PO Q6H PRN 09/28/20 09/28/20 History Past Med/Surg History Medical History Aortic valve sclerosis Atrial fibrillation Chronic diastolic heart failure Colon cancer Colon cancer Depression Diverticular disease history Hx of breast cancer 06/1999 chemo and surgical treatment Hyperlipidemia Hypertension Mild concentric left ventricular hypertrophy (LVH) Osteoarthritis Osteoporosis Reflux esophagitis Urine incontinence Vitamin D deficiency Surgical History History of cholecystectomy History of knee replacement right and left Hx of colonoscopy february 2020 Hx of hysterectomy Hx of mastectomy LEFT S/P partial colectomy 2019 Family History Mother Coronary heart disease Father CHF (congestive heart failure) Brother Valvular heart disease Social History Smoking Status: Never smoker Tobacco Type: Cigarettes Second Hand Exposure: Yes (dad smoked); Hx Alcohol Use: No Hx Substance Use: No Preferred Language: Kyrgyz Communication Ability: Effective Orthophoto Tech/Draftsman Required: No Beliefs That Will Affect Care: None marital status: Current Living Situation: Spouse Current Living Situation Comment: Feels Safe at Home: Yes Assistive Devices: Glasses and Walker Review of Systems Review of Systems: At least ten systems reviewed and negative except as noted in the HPI. Physical Exam Physical Exam: General Appearance: WD/WN, vitals as above, NAD, sitting up in bed, pleasant, conversing easily Head: normocephalic, atraumatic Eyes: normal inspection, PERRL, conjunctivae normal, anicteric sclerae ENT: external ear and nose normal, dry mucous membranes of oropharynx Neck: normal visual inspection, trachea midline, no thyromegaly Respiratory: normal respiratory effort, lungs clear to auscultation, no wheeze, rales, rhonchi. No accessory muscle use Cardiovascular: irregular rate & rhythm, systolic murmur, normal peripheral pulses, no BLE edema. Vessels: no JVD Chest: normal inspection of chest Abdomen/GI: normal bowel sounds, soft, nontender, no hepatosplenomegaly Extremities/Musculoskeletal: no cyanosis or clubbing, extremities motor strength 5/5 Neurologic: PERRL, EOMI, accommodation nl, no face palsy, no dysarthria, CN's II-XI intact bilaterally and moves all extremities Psychiatric: A+Ox3, euthymic affect Skin: no rashes, normal color, warm/dry Results & Data Results & Data ([facility]) Vital Signs (Past 12 Hours) Vital Signs Temp Pulse Resp BP Pulse Ox 09/28/20 13:18 110 H 12 113/72 94 09/28/20 12:30 109 H 109/63 09/28/20 12:00 107 H 20 106/82 09/28/20 11:56 127 H 12 124/83 09/28/20 11:52 96 09/28/20 11:40 36.3 C L 108 H 20 131/74 100 Laboratory Results Short CBC 09/28/20 09/28/20 Range/Units 11:55 11:55 WBC 6.30 (4.8-10.8) K/uL Hgb 12.3 (12.0-16.0) g/dL Hct 38.5 (37-47) % Plt Count 145 (130-400) K/uL BUN 20 H (7-18) mg/dl Creatinine 1.96 H (0.6-1.2) mg/dl AST 39 H (15-37) U/L BMP 09/28/20 11:55 Sodium 143 Potassium 3.9 Chloride 107 Carbon Dioxide 27 BUN 20 H Creatinine 1.96 H Glucose 116 H Calcium 9.1 Cardiac Enzymes 09/28/20 Range/Units 11:55 Troponin I 0.021 (0-0.045) ng/ml Liver Function 09/28/20 Range/Units 11:55 Total Bilirubin 1.0 (0.2-1) mg/dl Direct Bilirubin 0.3 H (0-0.2) mg/dl AST 39 H (15-37) U/L ALT 26 (12-78) U/L Alkaline Phosphatase 106 (45-117) U/L Albumin 3.3 L (3.4-5.0) gm/dl Diagnostic Findings Chest/abd XR: IMPRESSION: 1. Mild cardiomegaly with no acute cardiopulmonary abnormality. 2. Non-obstructed abdominal bowel gas pattern. ECG Rhythm: atrial fibrillation Findings: + LBBB and + left axis deviation Code Status & VTE Plan VTE Prophylaxis Plan VTE Prophylaxis will be ordered: Yes Supervising Physician Co-Signing Physician Notes I saw this patient with the physician anesthesiologists' assistant, I participated in the history, physical, review of systems, and physical exam. I reviewed the medications with the patient and the physician anesthesiologists' assistant and helped reconcile the medications. I helped take a detailed family and social history as well. I formulated the assessment and plan personally with the physician anesthesiologists' assistant and went over it with the patient. ROS-No Headache, No Visual Changes, No Nausea, No Vomiting, No Fever, No Chills, No Neck Pain or Stiffness, No Chest Pain, No Palpitations, No SOB, No SALEH, No Cough, No Sputum, No Wheezing, No Abdominal Pain, No Diarrhea, Pos Hematemesis, No Hemoptysis, No Unexpected Weight Loss, No Flank pain, No Melena, Pos Hematochezia, No Frequency, No Urgency, No Burning, No Hematuria, No Rashes, No Diaphoresis. Appetite is Normal Physical Exam Gen-AAO x 3, NAD, Afebrile Head-NCAT, EOMI, PERRLA, Anicteric Sclera, No Posterior Pharyngeal Erythema Neck-Supple, No JVD, No Thyromegaly, No Masses, No LAD, No Bruits Lungs-Clear to Auscultation Bilaterally, No Rales, No Rhonchi, No Wheezing, No Crepitus Chest-Irreg/Irreg No S4, +S1, +S2, No S3, +Faint Apical Murmur, No Rubs, No Gallops Abdomen-Soft, Bowel Sounds Present, Non Tender, Non Distended, No Hepatomegaly, No Splenomegaly, No Palpable Masses, No Rebound, No Rigidity, No Guarding Musculoskeletal-Full Range of Motion Bilaterally, No CVAT Extremities-No Cyanosis, No Clubbing, No Edema Nuero-Cranial Nerves II-XII grossly intact, Motor WNL, DTRs WNL, Strength WNL, Non Focal Psych-Normal Mood (1) Colon cancer Colon location: hepatic flexure Qualified Code(s): C18.3 - Malignant neoplasm of hepatic flexure (2) GIB (gastrointestinal bleeding) GI bleed type/associated pathology: unspecified gastrointestinal hemorrhage type Qualified Code(s): K92.2 - Gastrointestinal hemorrhage, unspecified (3) Atrial fibrillation Atrial fibrillation type: unspecified Qualified Code(s): I48.91 - Unspecified atrial fibrillation (4) Hypertension Hypertension type: essential hypertension Qualified Code(s): I10 - Essential (primary) hypertension
[2020-09-28] MEDS ORDERED: METOPROLOL TARTRATE 1 MG/ML VIAL IV STA (13:54)
--- NOTE | 2020-09-28 13:54 | Electrocardiogram Report ---
Test Reason : Blood Pressure : / mmHG Vent. Rate : 121 BPM Atrial Rate : 136 BPM P-R Int : 000 ms QRS Dur : 132 ms QT Int : 326 ms P-R-T Axes : 000 -33 133 degrees QTc Int : 462 ms Atrial fibrillation with rapid ventricular response Left axis deviation Left bundle branch block Abnormal ECG When compared with ECG of 29-MAR-2020 10:27, Left bundle branch block is now Present Confirmed by Rajiv Quarles ([id number]) on 09/28/2020 1:54:28 PM Referred By: Confirmed By:Rajiv Quarles
[2020-09-28] MEDS ORDERED: METOPROLOL TARTRATE 1 MG/ML VIAL IV ONE (13:58)
[2020-09-28] MEDS ORDERED: METOPROLOL SUCC 25MG EXT REL TAB PO ONE (14:15)
--- NOTE | 2020-09-28 15:32 | Gastrointestinal Consultation ---
Date of Consultation September 28, 2020 Assessment & Plan (1) GIB (gastrointestinal bleeding): Pt is a 85 y/o female w hx of colon adenocarcinoma s/p hemicolectomy on 02/2020, currently on FOLFOX chemo (last dose 2 weeks ago), currently presented w rectal bleeding, also had bloody emesis after epistaxis episode. She is on Eliquis for Afib. Blood ct normal but suspect hemoconcentrated, BUN up at baseline. On exam she is TTP on epigastric area, hemodynamically stable. DDx: PUD, diverticular bleeding, ischemic colitis, less likely infectious etiology. - Hold Eliquis - IVF hydration - Monitor blood ct and transfuse prn - PPI bolus and gtt - OK for CL diet today, keep NPO after midnight for EGD eval tomorrow. Defer colonoscopy eval at this time given she may not be able to tolerate bowel prep well. Supervising Physician Co-Signing Physician Notes Attending attestation I have seen, examined this patient, and agree with the findings and above by our mid-level provider TIFFANY Jara, with the following additions: One episode of hematochezia and one blood tinged episode after epistaxis. No signs of acute bleeding as no noted output for over 8 hrs, HD stable, Hb stable. Likely lower bleed from ischemia, anastomotic issues, diverticular. Will start with EGD tomorrow, PPI GTT, NPO after MN History of Present Illness Reason for Consultation: GI bleed Requesting Physician: Dr. Mil Hernandez Attending Physician: Dr. Valeriy Ontiveros History of Present Illness Pt is a 85 y/o female w PMHx of CKD, HLD, HTN, Afib on Eliquis, colon ca (adenocarcinoma) dx in 01/2020, s/p hemicolectomy 02/2020 and currently on FOLFOX treatment who presented to ED w c/o epistaxis, bloody vomitus and rectal bleeding. Pt's last chemo session was 2 weeks ago, was supposed to receive a dose today. Last night she had symptoms of GI upset, and epigastric discomfort. This AM around 9-10 she was defecating, noted stools were looser, dark brown, but when she wiped she saw BRBPR. Around the same time her nose started bleeding. Subsequently she had nausea and vomited several times, first few emesis w bright red blood but then "cleared up". She felt a bit light headed, and is c/o epigastric pain and reported >20lbs weight loss since she started chemo. She denies fever, chills, sick contact, new meds or antibx. Denies NSAIDs, ETOH, illicit drugs. Blood ct normal on presentation but suspect it's concentrated, platelet normal, INR slightly elevated at 1.2, BUN elevated in 20s but at baseline. Chest and abd xray showed mild cardiomegaly with no acute cardiopulmonary abnormality, nonobstructed abdominal bowel gas pattern. Allergies Allergy/AdvReac Type Severity Reaction Status Date / Time loteprednol [From Lotemax] Allergy edema , Verified 09/28/20 12:28 hives amoxicillin [From Augmentin] AdvReac Intermediate lower abd Verified 09/28/20 12:28 pain, spasm clavulanic acid AdvReac Intermediate lower abd Verified 09/28/20 12:28 [From Augmentin] pain, spasm alendronate sodium AdvReac Muscle Pain Verified 09/28/20 12:28 codeine AdvReac achiness Verified 09/28/20 12:28 lisinopril AdvReac Cough Verified 09/28/20 12:28 Home Medications Medication Instructions Recorded Confirmed Type atorvastatin [Lipitor] 40 mg PO QAM 02/17/20 09/28/20 History losartan [Cozaar] 50 mg PO QAM 02/17/20 09/28/20 History metoprolol succinate 25 mg PO BID 02/17/20 09/28/20 History furosemide [Lasix] 40 mg PO QAM #0 tab 05/07/20 09/28/20 Rx potassium chloride 10 meq PO BID #60 cap 05/07/20 09/28/20 Rx apixaban [Eliquis] 2.5 mg PO BID 09/28/20 09/28/20 History cholecalciferol (vitamin D3) 50 mcg PO DAILY 09/28/20 09/28/20 History cyclosporine [Restasis] 0.05 drp OPB Q6 PRN 09/28/20 09/28/20 History ondansetron HCl 8 mg PO Q8H PRN 09/28/20 09/28/20 History prochlorperazine maleate 10 mg PO Q6H PRN 09/28/20 09/28/20 History Patient History Medical History Aortic valve sclerosis Atrial fibrillation Chronic diastolic heart failure Colon cancer Colon cancer Depression Diverticular disease history Hx of breast cancer 06/1999 chemo and surgical treatment Hyperlipidemia Hypertension Mild concentric left ventricular hypertrophy (LVH) Osteoarthritis Osteoporosis Reflux esophagitis Urine incontinence Vitamin D deficiency Surgical History History of cholecystectomy History of knee replacement right and left Hx of colonoscopy february 2020 Hx of hysterectomy Hx of mastectomy LEFT S/P partial colectomy 2019 Family History Mother Coronary heart disease Father CHF (congestive heart failure) Brother Valvular heart disease Social History Smoking Status: Never smoker Tobacco Type: Cigarettes Second Hand Exposure: Yes (dad smoked); Hx Alcohol Use: No Hx Substance Use: No Preferred Language: Mohawk Communication Ability: Effective Program Clinician Required: No Beliefs That Will Affect Care: None marital status: Current Living Situation: Spouse Current Living Situation Comment: Feels Safe at Home: Yes Assistive Devices: Glasses and Walker Review of Systems Review of Systems: All systems reviewed & are unremarkable except as noted in HPI & below Physical Exam Constitutional: + thin, well groomed, cooperative and comfortable Eyes: PERRL, conjunctivae normal, anicteric sclerae ENMT: external ear and nose normal, oropharynx normal Respiratory: normal respiratory effort, lungs clear to auscultation Cardiovascular: RRR, no murmur, no edema Gastrointestinal (Abdomen): Inspection/Auscultation: normal bowel sounds Percussion/Palpation: + abdomen tender (epigastric ) and abdomen soft Skin: no rashes, warm and dry no jaundice Psychiatric: A+Ox3, euthymic affect Lymphatic: no lymphedema Results & Data ([facility]) Vital Signs (Past 12 Hours) Vital Signs Temp Pulse Resp BP Pulse Ox 09/28/20 14:03 103 H 129/92 09/28/20 14:00 113 H 10 L 129/92 92 09/28/20 13:30 102 H 12 132/69 99 09/28/20 13:18 110 H 12 113/72 94 09/28/20 12:30 109 H 109/63 09/28/20 12:00 107 H 20 106/82 09/28/20 11:56 127 H 12 124/83 09/28/20 11:52 96 09/28/20 11:40 36.3 C L 108 H 20 131/74 100 (1) GIB (gastrointestinal bleeding) GI bleed type/associated pathology: unspecified gastrointestinal hemorrhage type Qualified Code(s): K92.2 - Gastrointestinal hemorrhage, unspecified
[2020-09-28] MEDS ORDERED: ONDANSETRON INJ 2 MG/ML 2 ML VIAL IV PRN (18:03)
[2020-09-28 18:38] LABS: Hematocrit (blood only) 31.7 % (37-47); Hemoglobin 10.4 g/dL (12.0-16.0)
[2020-09-28] MEDS: METOPROLOL SUCC 25MG EXT REL TAB PO SCH (20:45)
[2020-09-28] MEDS: RESTASIS: ORDER AWAITING ACTION SCH (23:44)
[2020-09-29] MEDS ORDERED: HEPARIN 100 UNIT/ML 5ML FLUSH FLUSH PRN (00:28)
[2020-09-29] MEDS: SODIUM CHLORIDE 0.9% 1000ML 1,000 ML IV SCH ×2 (04:26→15:13)
[2020-09-29] MEDS: PANTOprazole 40 MG in DEXTROSE 5% 100 ML IV SCH ×2 (04:26→08:47)
[2020-09-29 05:11] LABS: Hematocrit (blood only) 30.9 % (37-47); Mean Corpuscular Hemoglobin 28.3 pg (25-34); Mean Corpuscular Hgb Conc 32.4 g/dL (32-36); Mean Corpuscular Volume 87.5 fL (80-100); Mean Platelet Volume 8.9 fL (7.4-10.4); Platelet Count 104 K/uL (130-400); RDW Coefficient of Variation 19.1 % (11.5-14.5); RDW Standard Deviation 60.2 fL (36.4-46.3); Red Blood Count 3.53 M/uL (4.2-5.4); White Blood Count 4.58 K/uL (4.8-10.8)
[2020-09-29 05:47] LABS: Albumin Level 2.4 gm/dl (3.4-5.0); BUN Creatinine Ratio 11.5 (10-20); Calcium 7.8 mg/dl (8.5-10.1); Creatinine Clr Calc Pharmacy 25.3 ml/min; Est GFR (African American) 34.4; Est GFR (Non-African American) 29.7; Potassium 3.4 mmol/L (3.5-5.1)
[2020-09-29 05:59] LABS: Bilirubin,Total 0.7 mg/dl (0.2-1); Globulin 2.4 gm/dl (2.5-4.0); Total Protein 4.8 gm/dl (6.4-8.2)
[2020-09-29] MEDS: RESTASIS: ORDER AWAITING ACTION SCH ×3 (08:47→19:57)
[2020-09-29] MEDS: METOPROLOL SUCC 25MG EXT REL TAB PO SCH ×2 (08:47→19:15)
--- NOTE | 2020-09-29 09:28 | Gastroenterology Progress Note ---
Date of Service September 29, 2020 Assessment & Plan (1) GIB (gastrointestinal bleeding): Pt is a 85 y/o female w hx of colon adenocarcinoma s/p hemicolectomy on 02/2020, currently on FOLFOX chemo (last dose 2 weeks ago), currently presented w rectal bleeding, also had bloody emesis after epistaxis episode. She is on Eliquis for Afib. Blood ct normal but suspect hemoconcentrated, BUN up at baseline. On exam she is TTP on epigastric area, hemodynamically stable. DDx: PUD, diverticular bleeding, ischemic colitis, less likely infectious etiology. No more signs of epistaxis or GI bleeding overnight. Blood ct stable. Still c/o upper abd pain but no n/v. - Hold Eliquis - IVF hydration - Monitor blood ct and transfuse prn - PPI gtt - Keep NPO for EGD eval by Dr. Ontiveros today Admission and Anticipated Discharge Date Admission Date: September 28, 2020 Supervising Physician Co-Signing Physician Notes Attending attestation I have seen, examined this patient, and agree with the findings and above by our mid-level provider TIFFANY Jara, with the following additions: - No signs of bleeding, will plan on EGD today Subjective Pt w/o acute events overnight. Denies any more epistaxis of n/v, rectal bleeding. Is still c/o upper abd discomfort. Hemodynamically stable, labs indicate stable blood ct. Review of Systems Review of Systems: All systems reviewed & are unremarkable except as noted in HPI & below Physical Exam Constitutional: + thin, well groomed, cooperative and comfortable Eyes: PERRL, conjunctivae normal, anicteric sclerae ENMT: external ear and nose normal, oropharynx normal Respiratory: normal respiratory effort, lungs clear to auscultation Cardiovascular: RRR, no murmur, no edema Gastrointestinal (Abdomen): Inspection/Auscultation: normal bowel sounds Percussion/Palpation: + abdomen tender (epigastric ) and abdomen soft Skin: no rashes, warm and dry no jaundice Psychiatric: A+Ox3, euthymic affect Lymphatic: no lymphedema Results & Data ([facility]) Vital Signs (Past 12 Hours) Vital Signs Temp Pulse Resp BP Pulse Ox 09/29/20 08:28 36.5 C 93 H 20 129/71 93 (1) GIB (gastrointestinal bleeding) GI bleed type/associated pathology: unspecified gastrointestinal hemorrhage type Qualified Code(s): K92.2 - Gastrointestinal hemorrhage, unspecified
--- NOTE | 2020-09-29 09:29 | Anesthesiology Consultation ---
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 History Surgery Operation Date: 09/29/20 16:00 Proposed Procedures p Esophagogastroduodenoscopy Dr Ontiveros - Valeriy Ontiveros MD Height/Weight Height: 5 ft 4 in Weight: 67.2 kg Allergies Allergy/AdvReac Type Severity Reaction Status Date / Time loteprednol [From Lotemax] Allergy edema , Verified 09/28/20 12:28 hives amoxicillin [From Augmentin] AdvReac Intermediate lower abd Verified 09/28/20 12:28 pain, spasm clavulanic acid AdvReac Intermediate lower abd Verified 09/28/20 12:28 [From Augmentin] pain, spasm alendronate sodium AdvReac Muscle Pain Verified 09/28/20 12:28 codeine AdvReac achiness Verified 09/28/20 12:28 lisinopril AdvReac Cough Verified 09/28/20 12:28 Medications Home Medications Medication Instructions Recorded Confirmed Last Taken atorvastatin [Lipitor] 40 mg PO QAM 02/17/20 09/28/20 09/28/20 losartan [Cozaar] 50 mg PO QAM 02/17/20 09/28/20 09/28/20 metoprolol succinate 25 mg PO BID 02/17/20 09/28/20 09/28/20 furosemide [Lasix] 40 mg PO QAM #0 tab 05/07/20 09/28/20 09/28/20 potassium chloride 10 meq PO BID #60 cap 05/07/20 09/28/20 09/28/20 apixaban [Eliquis] 2.5 mg PO BID 09/28/20 09/28/20 09/28/20 cholecalciferol (vitamin D3) 50 mcg PO DAILY 09/28/20 09/28/20 Unknown cyclosporine [Restasis] 0.05 drp OPB Q6 PRN 09/28/20 09/28/20 Unknown ondansetron HCl 8 mg PO Q8H PRN 09/28/20 09/28/20 Unknown prochlorperazine maleate 10 mg PO Q6H PRN 09/28/20 09/28/20 Unknown Active Medications Generic Name Dose Route Start Last Admin Trade Name Freq PRN Reason Stop Dose Admin Sodium Chloride 1,000 mls @ 125 mls/hr 09/28/20 12:00 09/29/20 04:26 Nss 1000ml IV 10/28/20 11:59 125 mls/hr .Q8H JAYA Administration Pantoprazole Sodium 40 mg/ 100 mls @ 20 mls/hr 09/28/20 12:15 09/29/20 08:47 Dextrose IV 10/28/20 12:14 8 mg/hr Q5H JAYA 20 mls/hr Administration 8 MG/HR Metoprolol Succinate 25 mg 09/28/20 21:00 09/29/20 08:47 Metoprolol Succ 25mg Ext Rel Tab PO 10/28/20 20:59 25 mg BID JAYA Administration Miscellaneous 1 ea 09/29/20 00:00 09/29/20 08:47 Restasis: Order Awaiting Action N/A 10/29/20 00:00 Not Given QS JAYA Past Medical History Medical History Aortic valve sclerosis Atrial fibrillation Chronic diastolic heart failure Colon cancer Colon cancer Depression Diverticular disease history Hx of breast cancer 06/1999 chemo and surgical treatment Hyperlipidemia Hypertension Mild concentric left ventricular hypertrophy (LVH) Osteoarthritis Osteoporosis Reflux esophagitis Urine incontinence Vitamin D deficiency Past Family History Family History Mother Coronary heart disease Father CHF (congestive heart failure) Brother Valvular heart disease Past Surgical History Surgical History History of cholecystectomy History of knee replacement right and left Hx of colonoscopy february 2020 Hx of hysterectomy Hx of mastectomy LEFT S/P partial colectomy 2019 Social History Smoking Status: Never smoker Hx Alcohol Use: No Hx Substance Use: No substance use type: does not use Physical Exam Vital Signs Last Vital Signs Temp 97.7 F 09/29/20 08:28 Pulse 93 H 09/29/20 08:28 Resp 20 09/29/20 08:28 BP 129/71 09/29/20 08:28 Pulse Ox 93 09/29/20 08:28 Testing Laboratory Results 09/29/20 05:04 09/29/20 05:04 PT 12.4 Seconds (9.0-12.0) H 09/28/20 11:55 INR 1.2 (0.9-1.1) H 09/28/20 11:55 APTT 25.1 Seconds (21.0-31.0) 09/28/20 11:55 Blood Type A Positive 09/28/20 12:02 Antibody Screen NEGATIVE 09/28/20 12:02 Laboratory Tests 09/28/20 13:55 SARS-CoV-2, RNA, NAAT NEGATIVE Electrocardiogram Date: 09/28/20 Atrial fibrillation with rapid ventricular response, rate 121 bpm Left axis deviation Left bundle branch block Abnormal ECG When compared with ECG of 29-MAR-2020 10:27, Left bundle branch block is now Present Confirmed by Rajiv Quarles ([id number]) on 09/28/2020 1:54:28 PM
[2020-09-29] MEDS ORDERED: LIDOCAINE HCL 2% 2 ML VIAL/AMP(20MG/ML) INFIL ONE (10:42)
[2020-09-29] MEDS ORDERED: PROPOFOL IV EMULSION 10 MG/ML 20 ML VIAL IV ONE (10:42)
--- NOTE | 2020-09-29 11:23 | GI REPORT ---
Patient Name: Nuria Sen Procedure Date: 09/29/2020 10:32 AM Date of : 1935 Admit Type: Inpatient Age: 85 Gender: Female Attending MD: Valeriy Ontiveros MD Procedure: Upper GI endoscopy Providers: Valeriy Ontiveros MD Referring MD: Lilian Oscar Indications: Hematemesis/Epistaxis, rectal bleeding. Exclude upper source Medicines: Monitored Anesthesia Care Complications: No immediate complications. Estimated blood loss: None. Estimated Blood Loss: Estimated blood loss: none. Procedure: Pre-Anesthesia Assessment: - Pre-Anesthesia Assessment: - Prior to the procedure, a History and Physical was performed, and patient medications, allergies and sensitivities were reviewed. The patient's tolerance of previous anesthesia was reviewed. Please see [employer] for complete details. - The risks and benefits of the procedure and the sedation options and risks were discussed with the patient. All questions were answered and informed consent was obtained. - Patient identification and proposed procedure were verified prior to the procedure by the physician and the nurse. The procedure was verified in the pre-procedure area in the procedure room. After obtaining informed consent, the endoscope was passed carefully and meticuously under direct vision and only advanced when the lumen was clearly identified, C02 insuflation was utilized throughout the entirity of the procedure. Throughout the procedure, the patient's blood pressure, pulse, and oxygen saturations were monitored continuously. After obtaining informed consent, the endoscope was passed under direct vision. Throughout the procedure, the patient's blood pressure, pulse, and oxygen saturations were monitored continuously. The Endoscope was introduced through the mouth, and advanced to the second part of duodenum. The upper GI endoscopy was accomplished without difficulty. The patient tolerated the procedure well. Findings: A hiatal hernia was present. The entire examined stomach was normal. The examined duodenum was normal. Impression: - Hiatal hernia. - Normal stomach. - Normal examined duodenum. - No specimens collected. Recommendation: - Return patient to hospital fung for ongoing care. - No signs of GI bleeding or recent etiology. Likely epistaxis as culprit. Given normal bowel movements now, colonoscopy not likely helpful. Monitor clinical status and signs. - Use Prilosec (omeprazole) 20 mg PO daily. Valeriy Ontiveros MD 09/29/2020 11:22:56 AM This report has been signed electronically. Note Initiated On: 09/29/2020 10:32 AM Number of Addenda: 0 I attest to the content of the Intraoperative Record and orders documented therein, exceptions below {[id number]}
--- NOTE | 2020-09-29 11:37 | Anesthesiology Progress Note ---
Date of Service September 29, 2020 Anesthesia Post Procedure Vital Signs Vital Signs: Temp Pulse Pulse Resp BP BP Pulse Ox 09/29/20 11:27 83 18 122/88 97 09/29/20 11:14 89 18 112/88 99 09/29/20 10:59 95 H 18 113/73 100 09/29/20 09:41 97.2 F L 99 H 18 149/87 H 96 09/29/20 08:28 97.7 F 93 H 20 129/71 93 09/28/20 17:04 123 H 26 H 136/89 09/28/20 16:00 100 H 114/73 98 09/28/20 15:30 104 H 21 111/65 100 09/28/20 15:00 95 H 111/79 99 09/28/20 14:31 108 H 12 105/69 09/28/20 14:03 103 H 129/92 09/28/20 14:00 113 H 10 L 129/92 92 09/28/20 13:30 102 H 12 132/69 99 09/28/20 13:18 110 H 12 113/72 94 09/28/20 12:30 109 H 109/63 09/28/20 12:00 107 H 20 106/82 09/28/20 11:56 127 H 12 124/83 09/28/20 11:52 96 09/28/20 11:40 97.3 F L 108 H 20 131/74 100 Transfer of Care Handoff Completed per policy Notes Mental Status: alert / awake / arousable and participated in evaluation Patient Amnestic to Procedure: Yes Nausea / Vomiting: adequately controlled Pain: adequately controlled Airway Patency, RR, SpO2: stable & adequate BP & HR: stable & adequate Hydration State: stable & adequate Anesthetic Complications: no major complications apparent and Pt Satisfied with anesthetic care
[2020-09-29] MEDS: PANTOprazole 40 MG TAB PO SCH (14:12)
--- NOTE | 2020-09-29 14:27 | Hospitalist Progress Note ---
Date of Service September 29, 2020 Assessment & Plan (1) GIB (gastrointestinal bleeding): Patient with an episode of hematemesis and epistaxis. EGD this morning revealed no evidence of upper GI bleeding. Suspect epistaxis as cause of hematemesis. Additionally patient had episode of bright red blood per rectum x1 yesterday prior to arrival. This has resolved with cessation of Eliquis. She does have intermittent abdominal pain consistent with her prior chemotherapy regimens. No plans for colonoscopy at this time per GI. If she appears stable and without bleeding will consider restarting Eliquis in a.m. (2) Epistaxis: spontaneously resolved. Hold Eliquis for now. Plan as above. (3) Acute kidney injury superimposed on chronic kidney disease: Creatinine improved from 1.96-1.59 today after gentle rehydration, holding of Lasix and losartan. Monitor daily BMP. Baseline creatinine is around 1.3- 1.5. (4) Colon cancer: Adenocarcinoma diagnosed last summer, s/p R hemicolectomy in 02/23/20 Currently receiving FOLFOX chemotherapy every 2 weeks (last received 2 weeks ago) (5) Atrial fibrillation: Remains in A. fib on monitor with rate more controlled. She is tolerating p.o. Toprol. Continue holding Eliquis at this time. (6) LBBB (left bundle branch block): New finding on admission EKG. Will repeat EKG in am and order echocardiogram as patient is on chemotherapy, a change since last echo in 2018. (7) DVT prophylaxis: SCDs/ambulate with assistance Full Code Dispo-pending PT/OT evaluations Iraida Landry DO [facility] Hospitalist Admission and Anticipated Discharge Date Admission Date: September 28, 2020 Subjective 85 yo F presented with acute lower GI bleeding x one episode at home followed by hematemesis followed by epistaxis. She also experienced abdominal pain and lightheadedness. Underwent EGD today which was normal Lower GI bleeding has resolved. She denies nausea or persistent vomiting and had a small amount of epistaxis today that resolved spontaneously She denies any respiratory symptoms or chest pain and denies fevers or chills She reports typically experiencing intermittent abdominal pain on her FOLFOX therapy like she is now. She reports started to experience significant lower extremity weakness during her chemotherapy treatment sessions x the last two sessions. This is of uncertain etiology and resolved over the next 2 days at home, but is concerning for chemotherapy side effect. Eliquis has been held. Patient reports no h/o bleeding on Eliquis and no h/o stroke in the past. Review of Systems Review of Systems: All systems reviewed & are unremarkable except as noted in Subjective Physical Exam Physical Exam: CONSTITUTIONAL: WNWD, vitals as above, generally well- appearing EYES: normal conjunctivae, no scleral icterus ENT: external ear and nose normal, MMM RESPIRATORY: crackles at right lung base, otherwise clear to auscultation throughout without rales or wheezes, normal respiratory effort CARDIOVASCULAR: regular rate and rhythm, S1 and 2 heard without murmurs, gallops or rubs, no JVD, no peripheral edema GASTROINTESTINAL: soft, nontender, nondistended, no guarding. MUSCULOSKELETAL: moves extremities equally but appears to have generalized weakness, patient is elderly, head is normocephalic and atraumatic SKIN: warm and dry NEUROLOGIC: No facial palsy, no dysarthria. CN 2-12 grossly intact, no sensory deficit, normal cognition, normal speech, no tremor PSYCHIATRIC: alert cooperative and oriented to person, place and time. Results & Data Results & Data ([facility]) Vital Signs (Past 12 Hours) Vital Signs Temp Pulse Resp BP Pulse Ox 09/29/20 11:27 83 18 122/88 97 09/29/20 11:14 89 18 112/88 99 09/29/20 10:59 95 H 18 113/73 100 09/29/20 09:41 36.2 C L 99 H 18 149/87 H 96 09/29/20 08:28 36.5 C 93 H 20 129/71 93 Laboratory Results Short CBC 09/28/20 09/29/20 Range/Units 18:20 05:04 WBC 4.58 L (4.8-10.8) K/uL Hgb 10.4 L 10.0 L (12.0-16.0) g/dL Hct 31.7 L 30.9 L (37-47) % Plt Count 104 L (130-400) K/uL BMP 09/29/20 05:04 Sodium 145 Potassium 3.4 L Chloride 111 H Carbon Dioxide 26 BUN 18 Creatinine 1.59 H D Glucose 71 Calcium 7.8 L Liver Function 09/29/20 Range/Units 05:04 Total Bilirubin 0.7 (0.2-1) mg/dl AST 28 (15-37) U/L ALT 18 (12-78) U/L Alkaline Phosphatase 81 (45-117) U/L Albumin 2.4 L (3.4-5.0) gm/dl Medications Administered Current Inpatient Medications Heparin Sodium (Porcine) (Heparin 100 Unit/Ml 5ml Flush) 5 ml FLUSH PRN PRN PRN Reason: Flush Stop: 10/29/20 00:27 Sodium Chloride (Nss 1000ml) 1,000 mls @ 125 mls/hr IV .Q8H JAYA Stop: 10/28/20 11:59 Last Infusion: 09/29/20 14:11 Dose: 0 mls/hr Documented by: Metoprolol Succinate (Metoprolol Succ 25mg Ext Rel Tab) 25 mg PO BID [facility] Stop: 10/28/20 20:59 Last Admin: 09/29/20 08:47 Dose: 25 mg Documented by: Miscellaneous (Restasis: Order Awaiting Action) 1 ea N/A QS [facility] Stop: 10/29/20 00:00 Last Admin: 09/29/20 08:47 Dose: Not Given Documented by: Ondansetron HCl (Ondansetron Inj 2 Mg/Ml 2 Ml Vial) 4 mg IV Q6H PRN PRN Reason: Nausea Stop: 10/28/20 18:02 Pantoprazole Sodium (Pantoprazole 40 Mg Tab) 40 mg PO QAM [facility] Stop: 10/29/20 12:44 Last Admin: 09/29/20 14:12 Dose: 40 mg Documented by: (1) Colon cancer Colon location: hepatic flexure Qualified Code(s): C18.3 - Malignant neoplasm of hepatic flexure (2) GIB (gastrointestinal bleeding) GI bleed type/associated pathology: unspecified gastrointestinal hemorrhage type Qualified Code(s): K92.2 - Gastrointestinal hemorrhage, unspecified (3) Atrial fibrillation Atrial fibrillation type: unspecified Qualified Code(s): I48.91 - Unspecified atrial fibrillation
[2020-09-30 05:07] LABS: Hematocrit (blood only) 31.1 % (37-47); Hemoglobin 10.2 g/dL (12.0-16.0); Mean Corpuscular Hemoglobin 28.7 pg (25-34); Mean Corpuscular Hgb Conc 32.8 g/dL (32-36); Mean Corpuscular Volume 87.6 fL (80-100); Platelet Count 103 K/uL (130-400); RDW Coefficient of Variation 19.1 % (11.5-14.5); RDW Standard Deviation 60.1 fL (36.4-46.3); Red Blood Count 3.55 M/uL (4.2-5.4); White Blood Count 3.86 K/uL (4.8-10.8)
[2020-09-30 05:26] LABS: Creatinine Clr Calc Pharmacy 25.9 ml/min; Est GFR (African American) 35.5; Est GFR (Non-African American) 30.6; Potassium 3.5 mmol/L (3.5-5.1)
[2020-09-30] MEDS: RESTASIS: ORDER AWAITING ACTION SCH ×2 (07:30→14:44)
[2020-09-30] MEDS: PANTOprazole 40 MG TAB PO SCH (07:33)
[2020-09-30] MEDS: METOPROLOL SUCC 25MG EXT REL TAB PO SCH (08:05)
--- NOTE | 2020-09-30 08:27 | Gastroenterology Progress Note ---
Date of Service September 30, 2020 Assessment & Plan (1) GIB (gastrointestinal bleeding): Pt is a 85 y/o female w hx of colon adenocarcinoma s/p hemicolectomy on 02/2020, currently on FOLFOX chemo (last dose 2 weeks ago), currently presented w rectal bleeding, also had bloody emesis after epistaxis episode. She is on Eliquis for Afib. Blood ct normal but suspect hemoconcentrated, BUN up at baseline. On exam she is TTP on epigastric area, hemodynamically stable. DDx: PUD, diverticular bleeding, ischemic colitis, less likely infectious etiology. No more signs of epistaxis or GI bleeding overnight. Blood ct stable, BUN normalizing. EGD 09/29 showed hiatal hernia but otherwise unremarkable and no source of UGI bleeding noted. Deferring colonoscopy given frailty and multiple comorbidities, no continued signs of GI bleeding. - Heart healthy diet - Recommend discussion w Cardiology for benefits vs risks of continued Eliquis use - Protonix 40mg daily - Monitor blood ct - GI to sign off; recall prn Attg add: I interviewed and examined pt, reviewed chart and labs. Pt without evidence of ongoing GIB. Hgb stable. Please re-consult if evidence of further bleeding. Admission and Anticipated Discharge Date Admission Date: September 28, 2020 Subjective Pt w/o epistaxis, or GI bleeding overnight. Blood ct stable. She is eating solid meals, denies abd pain, n/v. Review of Systems Review of Systems: All systems reviewed & are unremarkable except as noted in HPI & below Physical Exam Constitutional: + thin, well groomed, cooperative and comfortable Eyes: PERRL, conjunctivae normal, anicteric sclerae ENMT: external ear and nose normal, oropharynx normal Respiratory: normal respiratory effort, lungs clear to auscultation Cardiovascular: RRR, no murmur, no edema Gastrointestinal (Abdomen): normal bowel sounds, soft, nontender, no hepatosplenomegaly Skin: no rashes, warm and dry no jaundice Psychiatric: A+Ox3, euthymic affect Lymphatic: no lymphedema Results & Data ([facility]) Vital Signs (Past 12 Hours) Vital Signs Temp Pulse Resp BP Pulse Ox 09/30/20 07:18 36.6 C 93 H 18 123/77 96 09/30/20 04:07 36.5 C 83 12 122/78 97 09/29/20 23:57 36.6 C 86 14 113/62 96 (1) GIB (gastrointestinal bleeding) GI bleed type/associated pathology: unspecified gastrointestinal hemorrhage type Qualified Code(s): K92.2 - Gastrointestinal hemorrhage, unspecified
[2020-09-30] MEDS ORDERED: CHOLECALCIFEROL 1,000 UNITS 25 MCG TAB PO SCH ×2 (09:00)
[2020-09-30] MEDS ORDERED: LOSARTAN POTASSIUM 50 MG TAB PO SCH (09:00)
[2020-09-30] MEDS ORDERED: ATORVASTATIN 40 MG TAB PO SCH (09:00)
--- NOTE | 2020-09-30 09:31 | Electrocardiogram Report ---
Test Reason : Blood Pressure : / mmHG Vent. Rate : 083 BPM Atrial Rate : 357 BPM P-R Int : 000 ms QRS Dur : 134 ms QT Int : 402 ms P-R-T Axes : 000 -20 171 degrees QTc Int : 472 ms Atrial fibrillation Left bundle branch block Abnormal ECG When compared with ECG of 28-SEP-2020 11:52, HR has decreased by 38 bpm Otherwise no significant change Confirmed by Rajiv Quarles ([id number]) on 09/30/2020 9:30:33 AM Referred By: REFERRED SELF Confirmed By:Rajiv Quarles
--- NOTE | 2020-09-30 11:04 | Hospitalist Progress Note ---
Date of Service September 30, 2020 Assessment & Plan (1) GIB (gastrointestinal bleeding): Patient with an episode of hematemesis and epistaxis. EGD performed this admission revealed no evidence of upper GI bleeding. Suspected epistaxis as cause of hematemesis in setting of Eliquis use, both of which have resolved off the Eliquis. Additionally patient had episode of bright red blood per rectum x1 yesterday prior to arrival. This also resolved with cessation of Eliquis and did not continue after admission. She does have intermittent abdominal pain consistent with her prior chemotherapy regimens. Inpatient colonoscopy deferred without ongoing evidence of GI bleeding and a stable hemoglobin. Restart Eliquis (2) Epistaxis: spontaneously resolved and not persistent. Defer to outpatient care as needed if this continues. (3) Acute kidney injury superimposed on chronic kidney disease: Creatinine improved from 1.96 to 1.59, today 1.55 after gentle rehydration, holding of Lasix and losartan. Monitor daily BMP. Baseline creatinine is around 1.3-1.5. Follow up with primary care provider regarding labwork. (4) Colon cancer: Adenocarcinoma diagnosed last summer, s/p R hemicolectomy in 02/23/20 Currently receiving FOLFOX chemotherapy every 2 weeks (last received 2 weeks ago) (5) Atrial fibrillation: Remains in A. fib on monitor with rate more controlled. She is tolerating p.o. Toprol. Restart Eliquis (6) LBBB (left bundle branch block): New finding on admission EKG. A repeat EKG the following day confirmed persistent LBBB and ordered echocardiogram as patient is on chemotherapy, a change since last echo in 2018. Echo revealed no changes since last echo aside from septal motion consistent with LBBB conduction change. 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 Iraida Landry DO [facility] Hospitalist Admission and Anticipated Discharge Date Admission Date: September 28, 2020 Subjective Pt w/o epistaxis, or GI bleeding overnight. Blood ct stable. She is eating solid meals, denies abd pain, n/v. Review of Systems Review of Systems: All systems reviewed & are unremarkable except as noted in Subjective Physical Exam Physical Exam: CONSTITUTIONAL: WNWD, vitals as above, generally well- appearing EYES: normal conjunctivae, no scleral icterus ENT: external ear and nose normal, MMM RESPIRATORY: crackles at right lung base have resolved, otherwise clear to auscultation throughout without rales or wheezes, normal respiratory effort CARDIOVASCULAR: regular rate and rhythm, S1 and 2 heard without murmurs, gallops or rubs, no JVD, no peripheral edema GASTROINTESTINAL: soft, nontender, nondistended, no guarding. MUSCULOSKELETAL: moves extremities equally but appears to have generalized weakness, patient is elderly, head is normocephalic and atraumatic SKIN: warm and dry NEUROLOGIC: No facial palsy, no dysarthria. CN 2-12 grossly intact, no sensory deficit, normal cognition, normal speech, no tremor PSYCHIATRIC: alert cooperative and oriented to person, place and time. Results & Data Results & Data ([facility]) Vital Signs (Past 12 Hours) Vital Signs Temp Pulse Resp BP Pulse Ox 09/30/20 07:18 36.6 C 93 H 18 123/77 96 09/30/20 04:07 36.5 C 83 12 122/78 97 09/29/20 23:57 36.6 C 86 14 113/62 96 Laboratory Results Short CBC 09/30/20 Range/Units 04:55 WBC 3.86 L (4.8-10.8) K/uL Hgb 10.2 L (12.0-16.0) g/dL Hct 31.1 L (37-47) % Plt Count 103 L (130-400) K/uL BMP 09/30/20 04:55 Sodium 144 Potassium 3.5 Chloride 112 H Carbon Dioxide 27 BUN 17 Creatinine 1.55 H Glucose 76 Calcium 8.0 L Medications Administered Current Inpatient Medications Atorvastatin Calcium (Atorvastatin 40 Mg Tab) [address] [place] Stop: 10/30/20 08:59 Last Admin: 09/30/20 07:32 Dose: 40 mg Documented by: Heparin Sodium (Porcine) (Heparin 100 Unit/Ml 5ml Flush) 5 ml FLUSH PRN PRN PRN Reason: Flush Stop: 10/29/20 00:27 Losartan Potassium (Losartan Potassium 50 Mg Tab) [address] [facility] [place] Stop: 10/30/20 08:59 Last Admin: 09/30/20 07:33 Dose: 50 mg Documented by: Metoprolol Succinate (Metoprolol Succ 25mg Ext Rel Tab) 25 mg PO BID [facility] Stop: 10/28/20 20:59 Last Admin: 09/30/20 08:05 Dose: 25 mg Documented by: Miscellaneous (Restasis: Order Awaiting Action) 1 ea N/A QS [facility] Stop: 10/29/20 00:00 Last Admin: 09/30/20 07:30 Dose: Not Given Documented by: Ondansetron HCl (Ondansetron Inj 2 Mg/Ml 2 Ml Vial) 4 mg IV Q6H PRN PRN Reason: Nausea Stop: 10/28/20 18:02 Pantoprazole Sodium (Pantoprazole 40 Mg Tab) 40 mg PO QAM [facility] Stop: 10/29/20 12:44 Last Admin: 09/30/20 07:33 Dose: 40 mg Documented by: Vitamin D (Cholecalciferol 1,000 Units 25 Mcg Tab) 2,000 units PO DAILY [facility] Stop: 10/30/20 08:59 Last Admin: 09/30/20 07:31 Dose: 2,000 units Documented by: (1) Colon cancer Colon location: hepatic flexure Qualified Code(s): C18.3 - Malignant neoplasm of hepatic flexure (2) GIB (gastrointestinal bleeding) GI bleed type/associated pathology: unspecified gastrointestinal hemorrhage type Qualified Code(s): K92.2 - Gastrointestinal hemorrhage, unspecified (3) Atrial fibrillation Atrial fibrillation type: unspecified Qualified Code(s): I48.91 - Unspecified atrial fibrillation
--- NOTE | 2020-09-30 14:20 | Discharge Summary ---
Date of Service September 30, 2020 Admission HPI Per Admitting Provider This is an 85yo F with a PMH of colon cancer (s/p partial colectomy in 03/08, on FOLFOX chemotherapy currently), persistent atrial fibrillation on Eliquis, CKD 3, diastolic dysfunction, hypertension, aortic sclerosis and other medical problems as below who presents with GI bleed starting this morning. Patient was getting ready for chemotherapy infusion and went to use the bathroom before leaving. Had sudden onset nausea with one episode of emesis with presence of a few bright red blood clots the size of a nickel. Denies any coffee-ground emesis. Then developed a nosebleed. Had large episode of bright red blood per rectum noticed on tissue paper. Denies any melena. Has not recurred since that 1 episode. Came to ED for further evaluation. Does endorse epigastric and lower abdominal pain after eating that has been present for the past week. No abdominal pain now. Denies fever, chills, lightheadedness or headache. No chest pain, palpitations or shortness of breath,nausea, vomiting, dysuria or sanjana turia. In ED, patient tachycardic at 108 with EKG showing A. fib with RVR. BP stable at 129/92. H&H 12.9/38.5. BUN 20, creatinine 1.96 (baseline Cr ~1.5). Heme positive rectal exam. Covid screen negative. Chest/abdomen x-ray with mild cardiomegaly without acute cardiopulmonary abnormality. Also with nonobstructive bowel gas pattern. Admission Exam Per Admitting Provider General Appearance: WD/WN, vitals as above, NAD, sitting up in bed, pleasant, conversing easily Head: normocephalic, atraumatic Eyes: normal inspection, PERRL, conjunctivae normal, anicteric sclerae ENT: external ear and nose normal, dry mucous membranes of oropharynx Neck: normal visual inspection, trachea midline, no thyromegaly Respiratory: normal respiratory effort, lungs clear to auscultation, no wheeze, rales, rhonchi. No accessory muscle use Cardiovascular: irregular rate & rhythm, systolic murmur, normal peripheral pulses, no BLE edema. Vessels: no JVD Chest: normal inspection of chest Abdomen/GI: normal bowel sounds, soft, nontender, no hepatosplenomegaly Extremities/Musculoskeletal: no cyanosis or clubbing, extremities motor strength 5/5 Neurologic: PERRL, EOMI, accommodation nl, no face palsy, no dysarthria, CN's II-XI intact bilaterally and moves all extremities Psychiatric: A+Ox3, euthymic affect Skin: no rashes, normal color, warm/dry Principal Diagnosis Acute GI bleeding, nonspecific s/p upper endoscopy epistaxis-resolved new LBBB acute on chronic kidney disease-resolved to baseline pancytopenia 2/2 chemotherapy Discharge Exam CONSTITUTIONAL: WNWD, generally well-appearing EYES: normal conjunctivae, no scleral icterus ENT: external ear and nose normal, MMM RESPIRATORY: clear to auscultation throughout without rales or wheezes, normal respiratory effort CARDIOVASCULAR: regular rate and rhythm, S1 and 2 heard without murmurs, gallops or rubs, no JVD, no peripheral edema GASTROINTESTINAL: soft, nontender, nondistended, no guarding. MUSCULOSKELETAL: moves extremities equally but appears to have generalized weakness, patient is elderly, head is normocephalic and atraumatic SKIN: warm and dry NEUROLOGIC: No facial palsy, no dysarthria. CN 2-12 grossly intact, no sensory deficit, normal cognition, normal speech, no tremor PSYCHIATRIC: alert cooperative and oriented to person, place and time. Discharge Data Allergies Allergy/AdvReac Type Severity Reaction Status Date / Time loteprednol [From Lotemax] Allergy edema , Verified 09/28/20 12:28 hives amoxicillin [From Augmentin] AdvReac Intermediate lower abd Verified 09/28/20 12:28 pain, spasm clavulanic acid AdvReac Intermediate lower abd Verified 09/28/20 12:28 [From Augmentin] pain, spasm alendronate sodium AdvReac Muscle Pain Verified 09/28/20 12:28 codeine AdvReac achiness Verified 09/28/20 12:28 lisinopril AdvReac Cough Verified 09/28/20 12:28 Consultations 09/28/20 13:11 ED Decision to Admit Stat 09/28/20 18:03 Consult Gastroenterology Routine Procedures Performed [facility], [id number] XRay Report Patient: GAYLA OKEEFE Date: 09/28/20#: [id number]: [address]:[id number]: Date: 1935City Zip: [place] [address]Z[place]: 85Location: EDSex: FRoom/Bed:Att Phy:Diagnosis: BLOOD IN STOOL AND VOMITING BLOOD AT TIMESPri Phy: Eddie Pelayo TerrieChristina, MDService Date: 09/28/20Fa Phy:Interpreting Phy: Ben Valencia MDAdmit Phy: Ordering Phy: Ga Nagy MD cc: ~ AP CHEST WITH ABDOMINAL SERIES CLINICAL HISTORY: Vomiting. Diarrhea. FINDINGS: An AP upright chest radiograph is compared to study dated 05/06/2020. The examination is degraded by patient rotation. A right subclavian central venous infusion port is unchanged in position. The heart is enlarged noting atherosclerotic calcification of the thoracic aorta. The pulmonary vasculature is noncongested. Chronic interstitial thickening is similar to previous. There is mild elevation of the left hemidiaphragm with bibasilar scarring/atelectasis. No pneumothorax is seen. The skeletal structures are osteopenic. The bony thorax is grossly intact. Surgical clips are noted in the left axilla. Supine and decubitus abdominal radiographs are correlated with abdominal ultrasound dated 05/06/2020. Cholecystectomy clips and suture material are seen in the right upper quadrant. There is a nonobstructed abdominal bowel gas pattern. No evidence of intraperitoneal free air is seen. There are no abnormal abdominal calcifications. The lumbosacral spine and bony pelvis appear intact. There is advanced lumbosacral spondylosis. IMPRESSION: 1. Mild cardiomegaly with no acute cardiopulmonary abnormality. 2. Nonobstructed abdominal bowel gas pattern. ACT 112: Negative or not required by law. Electronically signed by: Ben Valencia M.D. 09/28/2020 1:14 PM Dictated: 09/28/20 1309Transcribed: 09/28/20 1309 Hospital Course (1) GIB (gastrointestinal bleeding): Patient with an episode of hematemesis and epistaxis. EGD performed this admission revealed no evidence of upper GI bleeding. Suspected epistaxis as cause of hematemesis in setting of Eliquis use, both of which have resolved off the Eliquis. Additionally patient had episode of bright red blood per rectum x1 yesterday prior to arrival. This also resolved with cessation of Eliquis and did not continue after admission. She does have intermittent abdominal pain consistent with her prior chemotherapy regimens. Inpatient colonoscopy deferred without ongoing evidence of GI bleeding and a stable hemoglobin. Eliquis was restarted prior to discharge and the patient verbalized comfort with going home and following up with PCP. (2) Epistaxis: spontaneously resolved and not persistent. Defer to outpatient care as needed if this continues. (3) Acute kidney injury superimposed on chronic kidney disease: Creatinine improved from 1.96 to 1.59 after gentle rehydration, holding of Lasix and losartan. Monitor daily BMP. Baseline creatinine is around 1.3- 1.5. Follow up with primary care provider regarding labwork. 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 fib on monitor with rate more controlled. She is tolerating p.o. Toprol. Restart Eliquis (7) LBBB (left bundle branch block): New finding on admission EKG. A repeat EKG the following day confirmed persistent LBBB and ordered echocardiogram as patient is on chemotherapy, a change since last echo in 2018. Echo revealed no changes since last echo, specifically mild concentric left ventricular hypertrophy. Septal motion consistent with conduction abnormality, no regional wall motion abnormalities noted with an ejection fraction 50 to 55%, trace aortic regurgitation, moderate mitral regurgitation, moderate tricuspid rotation. Right ventricular systolic pressure is elevated at 30 to 40 mmHg. At time of discharge she was hemodynamically stable and afebrile and tolerating p.o. She was requesting to go home and would follow-up with primary care doctor regarding any further bleeding after restarting Eliquis. She was mentating and ambulating at baseline and oxygenating well on room air. Initial symptoms had resolved. She was discharged in guarded condition secondary to cancer diagnosis with close primary care follow-up recommended. Total Time Total Time Spent Total Time Spent (In Minutes): 60 Total Time Includes: Examination of the Patient, Discharge Planning, Medication Reconciliation and Communication With Other Providers Discharge Plan Discharge Items Patient Disposition: Home - Self-Care Reason For Visit: GI BLEED Discharge Diagnosis: Acute GI bleeding, nonspecific s/p upper endoscopy epistaxis-resolved new LBBB acute on chronic kidney disease-resolved to baseline pancytopenia 2/2 chemotherapy Condition on Discharge: Good Activity: Resume your previous activity Lifting: Gradually increase as tolerated Bathing: No limitations Non-emergency contact: Primary Care Provider Call non-emergency contact if: you have any medication questions, your symptoms worsen and your pain is not controlled Follow-up/Referrals: Eddie Pelayo MD [Primary Care Provider] - 10/04/20 11:20 am (Date & Time 10/04/2020 11:20 AM Provider Eddie Pelayo MD Department Merged With [facility] ) Diet: Heart Healthy Addtl Attending Provider Instructions: Please take all medications as instructed on discharge list below. It is recommended that you follow-up with your primary care provider within one week of discharge from the hospital to ensure you have no further bleeding after being put back on your Eliquis. You were also found to have a new conduction abnormality called a LEFT BUNDLE BRANCH BLOCK in your heart. An echocardiogram was performed while you were hospitalized and appeared unchanged from prior echo in 2018. Please continue with regularly scheduled cardiology visits. No further immediate investigation into this is needed at this time. It was a pleasure taking care of you! Please call if you have any questions or problems. You can reach a [facility] hospitalist on duty at [facility] 24 hours a day by calling [phone]. Take care of yourself. Iraida Landry, DO [facility] Hospitalist Pending Studies at Discharge: No Stand-Alone Forms: My [facility] Medications and DC Order Prescriptions: Continued furosemide [Lasix] 40 mg Tablet 40 mg PO QAM Qty: 0 RF: 0 potassium chloride 10 mEq capsule, extended release 10 meq PO BID Qty: 60 RF: 5 losartan [Cozaar] 50 mg Tablet 50 mg PO QAM RF: 0 atorvastatin [Lipitor] 40 mg Tablet 40 mg PO QAM RF: 0 metoprolol succinate 25 mg Tablet Extended Release 24 Hr 25 mg PO BID RF: 0 Eliquis 2.5 mg tablet 2.5 mg PO BID RF: 0 ondansetron HCl 8 mg tablet 8 mg PO Q8H PRN (Reason: Nausea) RF: 0 prochlorperazine maleate 10 mg tablet 10 mg PO Q6H PRN (Reason: Nausea) RF: 0 Restasis 0.05 % dropperette 0.05 drp OPB Q6 PRN (Reason: Dry Eyes) RF: 0 cholecalciferol (vitamin D3) 50 mcg (2,000 unit) Tablet 50 mcg PO DAILY RF: 0 Discharge Orders: Discharge Order (Routine); Ordered 09/30/20 Ordered By: Iraida Landry Admission Data Admit Date/Time: 09/28/20 13:25 Attending Provider: Iraida Landry Admit Provider: Mil Hernandez Primary Care Provider: Eddie Pelayo Other Providers: Zain Rondon ; Valeriy Ontiveros Other Interventions: Discharge Summary Assessment (RN) Last Done: 09/30/20 15:04
== END 2020-09-30 15:52 | disposition home or self-care (01) | DRG 377 ==
LOC: ED 11:38 → 1E 13:25 → SUATTDRO 13:25 → 1E 16:33

== ENCOUNTER 2022-08-30 15:52 | Inpatient (IN) ==
[2022-08-30 17:08] LABS: Hemoglobin 13.3 g/dl (12.0-16.0); Mean Corpuscular Hemoglobin 27.2 pg (25.0-34.0); Mean Corpuscular Hgb Conc 32.4 g/dL (32.0-36.0); Mean Corpuscular Volume 83.8 fL (80.0-100.0); Mean Platelet Volume 10.1 fL (9.4-12.3); Platelet Count 250 K/uL (130-400); RDW Coefficient of Variation 16.2 % (11.5-14.5); RDW Standard Deviation 49.3 fL (36.4-46.3); Red Blood Count 4.89 M/uL (3.93-5.22); White Blood Count 8.67 K/ul (4.8-10.8)
[2022-08-30 17:22] LABS: INR 1.2 (0.9-1.1); Partial Thromboplastin Time 27.2 Seconds (21.0-31.0); Prothrombin Time 12.3 Seconds (9.0-12.0)
[2022-08-30 17:28] LABS: Albumin Globulin Ratio 1.1 (0.9-2); Albumin Level 3.9 gm/dl (3.4-5.0); BUN Creatinine Ratio 16.2 (10-20); Bilirubin,Total 0.9 mg/dl (0.2-1.0); Calcium 9.5 mg/dl (8.5-10.1); Creatinine Clr Calc Pharmacy 38.4 ml/min; Est GFR (African American) 52.4 ml/min; Est GFR (Non-African American) 45.2 ml/min; Globulin 3.4 gm/dl (2.5-4.0); Potassium 3.4 mmol/L (3.5-5.1); Total Protein 7.3 gm/dl (6.0-8.3)
--- NOTE | 2022-08-30 18:46 | Emergency Department Note ---
Impression & Plan Bright red rectal bleeding, Chronic anticoagulation, History of colon cancer ED Provider Note NAME: GAYLA OKEEFE AGE: 87 SEX: F : 1935 ARRIVES VIA: Walk-In INFORMANT: Patient, ED PROVIDER(S): Surinder Mendoza MD CHIEF COMPLAINT: GI bleeding MEDICAL DECISION MAKING: Patient presents due to concern for GI bleeding which began earlier today. The patient is on Eliquis. The patient did have blood work completed along with rectal exam. Patient's rectal exam does show bright red blood per rectum. The patient's initial laboratory work is reassuring. Patient has a normal white counts H&H and platelet count. The patient's kidney function is unremarkable with normal electrolytes. Mild elevation alk phos 173 but no upper abdominal pain. Type and screen also obtained. Given that the patient is on the blood thinner with a known history of prior colon cancer status post partial colectomy and chemo treatment do believe the patient should stay given the patient's new onset of bleeding. I did speak the on-call hospitalist Dr. Gallego and the patient was admitted to the medicine service. Prior /Outside records reviewed: none Differential diagnosis: Diverticulosis, AVM, coagulopathy, colitis, inflammatory bowel disease, malignancy, Adeline-Amado tear, esophagitis, peptic ulcer disease, variceal bleed, gastritis, epistaxis, fissure, hemorrhoids, as well as other pathologies. Diagnostics, as interpreted by me: ECG: A. fib, rate of 87, wide QRS, left bundle branch block pattern, left axis deviation. No significant change from comparison September 30, 2020 Cardiac monitoring: An order was placed for continuous cardiac monitoring. The monitor shows a rate of 88 with irregularly irregular rhythm. Patient was placed on pulse oximetry Medical decision rules: None Imaging studies: See below HPI: Patient presents due to concern for GI bleeding that began soon after lunch. The patient noted that it was bright red in nature and noticed some blood in the toilet. The patient denies any chest pains or shortness of breath patient has no abdominal pain. The patient does have prior history of colon cancer status post partial colectomy and chemotherapy which was completed maybe about 2 years ago per the . Patient denies any falls or trauma. Patient did last take her Eliquis this morning. Patient does have a history of hemorrhoids but is unsure whether or not this could be causing some of her symptoms. The patient denies any vomiting or diarrhea. No dark stools. The patient denies any additional exacerbating remitting factors. PAST MEDICAL HISTORY: See Below PAST SURGICAL HISTORY: See Below SOCIAL HISTORY: See Below HOME MEDICATIONS: See Below ALLERGIES: See Below VITALS: See Below PHYSICAL EXAMINATION: GENERAL: NAD, wearing a mask, non-toxic. EYE EXAM: Normal conjunctiva. PERRL, no anisocoria and EOM's grossly intact w/o pain. NECK: Supple, no nuchal rigidity, no adenopathy, non-tender. No signs of meningismus. FROM of the neck with good chin to chest and neck extension. No stridor. LUNGS: Clear to auscultation. Normal chest wall mechanics. HEART: Irregularly irregular, no MRG. ABDOMEN: Abdomen soft, non-tender, normo-active bowel sounds, no masses, no rebound or guarding. BACK: No CVA TTP. SKIN: No rashes and no bruising. Rectal exam: Nonthrombosed nonbleeding hemorrhoids no evidence of fissures, bright red blood on digital rectal exam no obvious masses. Heme positive. UPPER EXTREMITIES: Upper extremities are grossly normal. LOWER EXTREMITIES: Grossly normal, no edema. NEURO EXAM: A&O x3, cranial nerves II-XII grossly intact, normal speech, moves all 4 extremities. Past Med/Surg History Medical History Aortic valve sclerosis Atrial fibrillation Chronic diastolic heart failure Colon cancer hx Deep vein thrombosis "can't remember when, but it's been awhile ago"; currently on eliquis Depression Diverticular disease history Fracture of greater trochanter of left femur Hx of breast cancer 06/1999 chemo and surgical treatment Hx of fracture of left hip 02/2022, non displaced, no sx. Hyperlipidemia Hypertension Mild concentric left ventricular hypertrophy (LVH) Osteoarthritis Osteoporosis Reflux esophagitis Urine incontinence Vitamin D deficiency Surgical History History of cholecystectomy History of knee replacement right and left Hx of colonoscopy february 2020 Hx of hysterectomy Hx of mastectomy LEFT S/P partial colectomy 2019 Family History Mother Coronary heart disease Father CHF (congestive heart failure) Brother Valvular heart disease Social History Smoking Status: Never smoker Tobacco Type: Cigarettes Second Hand Exposure: No; Hx Alcohol Use: No Hx Substance Use: No Preferred Language: Azeri Communication Ability: Effective Storm Chaser Required: No Beliefs That Will Affect Care: None marital status: Current Living Situation: Spouse Current Living Situation Comment: home with Other Information That Helps Us Care for You: No Feels Safe at Home: Yes Safety Concerns: Feels Safe At This Time Assistive Devices: Cane Allergies Allergies Allergy/AdvReac Type Severity Reaction Status Date / Time loteprednol [From Lotemax] Allergy edema , Verified 08/30/22 19:42 hives amoxicillin [From Augmentin] AdvReac Intermediate lower abd Verified 08/30/22 19:42 pain, spasm clavulanic acid AdvReac Intermediate lower abd Verified 08/30/22 19:42 [From Augmentin] pain, spasm alendronate sodium AdvReac Muscle Pain Verified 08/30/22 19:42 codeine AdvReac achiness Verified 08/30/22 19:42 lisinopril AdvReac Cough Verified 08/30/22 19:42 Home Meds Home Medications Medication Instructions Recorded Confirmed atorvastatin 40 mg tablet (Lipitor) 40 mg PO QAM 02/17/20 08/30/22 metoprolol succinate 25 mg 25 mg PO BID 02/17/20 08/30/22 tablet,extended release 24 hr apixaban 2.5 mg tablet (Eliquis) 2.5 mg PO BID 09/28/20 08/30/22 cyclosporine 0.05 % eye drops in a 1 drp OPB BID 09/28/20 08/30/22 dropperette (Restasis) cyanocobalamin (vitamin B-12) 1,000 mcg PO QAM 04/07/22 08/30/22 1,000 mcg tablet (Vitamin B-12) furosemide 40 mg tablet 40 mg PO DAILY 08/30/22 08/30/22 tramadol 50 mg tablet 50 mg PO BID PRN Pain 08/30/22 08/30/22 Results & Data (ED) Vital Signs Vital Signs - 24 hr 08/30/22 15:59 08/30/22 18:42 08/30/22 18:41 Temperature 36.1 C L Temperature Source Temporal Artery Scan Pulse Rate 91 H 89 Pulse Rate [Finger] 76 Pulse Rate from SpO2 Sensor 87 Pulse Rhythm [Finger] Regular Pulse Strength [Finger] Normal Respiratory Rate 18 20 8 L Respiratory Effort / Characteristics Non-Labored Spontaneous Non-Labored Spontaneous Respiratory Depth Normal Normal Respiratory Pattern Regular Regular Blood Pressure 172/98 H Blood Pressure [Right Arm] 171/112 H Blood Pressure Mean 122 Blood Pressure Mean [Right Arm] 131 Blood Pressure Position Sitting Blood Pressure Position [Right Arm] Lying Pulse Oximetry 97 99 99 Oxygen Delivery Method Room Air Room Air Sepsis Recent Fever Within 48 Hours No Sepsis New/Unexplained Change in Mental Status N/A Sepsis Action Taken by Nursing No Action Required 08/30/22 19:00 08/30/22 19:00 08/30/22 19:30 Temperature Temperature Source Pulse Rate 86 85 Pulse Rate [Finger] Pulse Rate from SpO2 Sensor 85 93 H Pulse Rhythm [Finger] Pulse Strength [Finger] Respiratory Rate 10 L 13 Respiratory Effort / Characteristics Respiratory Depth Respiratory Pattern Blood Pressure 134/109 H Blood Pressure [Right Arm] Blood Pressure Mean 117 Blood Pressure Mean [Right Arm] Blood Pressure Position Blood Pressure Position [Right Arm] Pulse Oximetry 100 91 Oxygen Delivery Method Sepsis Recent Fever Within 48 Hours Sepsis New/Unexplained Change in Mental Status Sepsis Action Taken by Nursing 08/30/22 20:00 08/30/22 20:30 08/30/22 20:55 Temperature Temperature Source Pulse Rate 92 H 86 Pulse Rate [Finger] Pulse Rate from SpO2 Sensor Pulse Rhythm [Finger] Pulse Strength [Finger] Respiratory Rate 20 31 H Respiratory Effort / Characteristics Respiratory Depth Respiratory Pattern Blood Pressure 168/104 H Blood Pressure [Right Arm] Blood Pressure Mean 125 Blood Pressure Mean [Right Arm] Blood Pressure Position Blood Pressure Position [Right Arm] Pulse Oximetry Oxygen Delivery Method Sepsis Recent Fever Within 48 Hours Sepsis New/Unexplained Change in Mental Status Sepsis Action Taken by Nursing 08/30/22 20:55 Temperature Temperature Source Pulse Rate 72 Pulse Rate [Finger] Pulse Rate from SpO2 Sensor 71 Pulse Rhythm [Finger] Pulse Strength [Finger] Respiratory Rate 11 L Respiratory Effort / Characteristics Respiratory Depth Respiratory Pattern Blood Pressure Blood Pressure [Right Arm] Blood Pressure Mean Blood Pressure Mean [Right Arm] Blood Pressure Position Blood Pressure Position [Right Arm] Pulse Oximetry 100 Oxygen Delivery Method Sepsis Recent Fever Within 48 Hours Sepsis New/Unexplained Change in Mental Status Sepsis Action Taken by [facility]way Medications Current Medication List: was personally reviewed by me Laboratory Data Attestation: I reviewed the patient's lab results. 08/30/22 16:59 08/30/22 16:59 Lab Results 08/30/22 08/30/22 08/30/22 Range/Units 16:59 16:59 16:59 WBC 8.67 (4.8-10.8) K/ul RBC 4.89 (3.93-5.22) M/uL Hgb 13.3 (12.0-16.0) g/dl Hct 41.0 (34.1-44.9) % MCV 83.8 (80.0-100.0) fL MCH 27.2 (25.0-34.0) pg MCHC 32.4 (32.0-36.0) g/dL RDW Std Deviation 49.3 H (36.4-46.3) fL RDW Coeff of Ingrid 16.2 H (11.5-14.5) % Plt Count 250 (130-400) K/uL MPV 10.1 (9.4-12.3) fL PT 12.3 H (9.0-12.0) Seconds INR 1.2 H (0.9-1.1) APTT 27.2 (21.0-31.0) Seconds PTT Ratio 1.0 Sodium 143 (136-145) mmol/L Potassium 3.4 L (3.5-5.1) mmol/L Chloride 105 (98-107) mmol/L Carbon Dioxide 31 (21-32) mmol/L Anion Gap 7 (3-11) BUN 18 (6-23) mg/dl Creatinine 1.11 (0.6-1.2) mg/dl Est Cr Clr Drug Dosing 38.4 ml/min Est GFR ( Amer) 52.4 ml/min Est GFR (Non-Af Amer) 45.2 ml/min BUN/Creatinine Ratio 16.2 (10-20) Glucose 94 (70-99(Fasting)) mg/dl Calcium 9.5 (8.5-10.1) mg/dl Magnesium 1.8 (1.7-2.4) mg/dl Total Bilirubin 0.9 (0.2-1.0) mg/dl AST 23 (13-39) U/L ALT 19 (7-52) U/L Alkaline Phosphatase 173 H (34-104) U/L Total Protein 7.3 (6.0-8.3) gm/dl Albumin 3.9 (3.4-5.0) gm/dl Globulin 3.4 (2.5-4.0) gm/dl Albumin/Globulin Ratio 1.1 (0.9-2) SARS-CoV-2, RNA, NAAT (NEGATIVE) Blood Type Antibody Screen 08/30/22 08/30/22 08/30/22 Range/Units 17:00 18:40 20:31 WBC (4.8-10.8) K/ul RBC (3.93-5.22) M/uL Hgb 12.6 (12.0-16.0) g/dl Hct 38.5 (34.1-44.9) % MCV (80.0-100.0) fL MCH (25.0-34.0) pg MCHC (32.0-36.0) g/dL RDW Std Deviation (36.4-46.3) fL RDW Coeff of Ingrid (11.5-14.5) % Plt Count (130-400) K/uL MPV (9.4-12.3) fL PT (9.0-12.0) Seconds INR (0.9-1.1) APTT (21.0-31.0) Seconds PTT Ratio Sodium (136-145) mmol/L Potassium (3.5-5.1) mmol/L Chloride (98-107) mmol/L Carbon Dioxide (21-32) mmol/L Anion Gap (3-11) BUN (6-23) mg/dl Creatinine (0.6-1.2) mg/dl Est Cr Clr Drug Dosing ml/min Est GFR ( Amer) ml/min Est GFR (Non-Af Amer) ml/min BUN/Creatinine Ratio (10-20) Glucose (70-99(Fasting)) mg/dl Calcium (8.5-10.1) mg/dl Magnesium (1.7-2.4) mg/dl Total Bilirubin (0.2-1.0) mg/dl AST (13-39) U/L ALT (7-52) U/L Alkaline Phosphatase (34-104) U/L Total Protein (6.0-8.3) gm/dl Albumin (3.4-5.0) gm/dl Globulin (2.5-4.0) gm/dl Albumin/Globulin Ratio (0.9-2) SARS-CoV-2, RNA, NAAT NEGATIVE (NEGATIVE) Blood Type A Positive Antibody Screen NEGATIVE Administered Medications Atorvastatin Calcium (Atorvastatin 40 Mg Tab) 40 mg PO QAM JAYA Stop: 09/30/22 08:59 Last Admin: 08/31/22 09:19 Dose: 40 mg Documented By: NILTON Metoprolol Succinate (Metoprolol Succ 25mg Ext Rel Tab) 25 mg PO BID JAYA Stop: 09/30/22 08:59 Last Admin: 08/31/22 09:20 Dose: 25 mg Documented By: NILTON Miscellaneous (Restasis~Order Awaiting Action) 1 each N/A QS JAYA Stop: 09/30/22 07:59 Last Admin: 08/31/22 07:54 Dose: Not Given Documented By: NILTON Discontinued Medications Metoprolol Succinate (Metoprolol Succ 25mg Ext Rel Tab) 25 mg PO NOW STA Stop: 08/30/22 19:40 Last Admin: 08/30/22 20:59 Dose: 25 mg Documented By: [id number] Potassium Chloride (Potassium Chloride Pwd 20 Meq Pack) 20 meq PO NOW STA Stop: 08/30/22 19:37 Last Admin: 08/30/22 20:59 Dose: 20 meq Documented By: [id number] Discharge Plan Visit Data Chief Complaint: GI Bleed Stated Complaint: REF BY DOC, BLEEDING BOWEL ED Provider: Surinder Mendoza Discharge Problem: Bright red rectal bleeding, Chronic anticoagulation, History of colon cancer Patient Disposition: Admitted As Inpatient Discharge Instructions Interventions: ED Discharge Assessment Last Done: 08/30/22 23:39
[2022-08-30] MEDS ORDERED: POTASSIUM CHLORIDE PWD 20 MEQ PACK PO STA (19:36)
[2022-08-30] MEDS ORDERED: METOPROLOL SUCC 25MG EXT REL TAB PO STA (19:39)
[2022-08-30 20:28] LABS: Magnesium 1.8 mg/dl (1.7-2.4)
[2022-08-30 20:37] LABS: Hematocrit (blood only) 38.5 % (34.1-44.9); Hemoglobin 12.6 g/dl (12.0-16.0)
--- NOTE | 2022-08-30 22:10 | History & Physical Report ---
Date of Service August 30, 2022 Assessment & Plan (1) Acute lower GI bleeding: Plan: Painless L GIB hx colon cancer status post surgery status post incomplete chemotherapy hx Eliquis anticoagulation for A. fib Patient currently hemodynamically stable. chronic diastolic heart failure (EF 50 to 55%, TTE 2020), patient euvolemic chronic LBBB valvular heart disease (moderate MR/TR, trace AR) pulmonary hypertension hypertension, slightly elevated hyperlipidemia on statin Rx L breast cancer status post surgery/chemotherapy/tamoxifen Rx, in remission mild dementia OBS Medical telemetry Clear liquids for now Appropriate to hold Eliquis Follow H&H, transfuse PRBC if hemoglobin less than 7 and or for symptomatic anemia GI consult Re: L GIB DVT prophylaxis. SCDs Re: L GIB Full code as per , Mr. Perez Sen. He requests updates from providers through [phone]. Text document was generated using [employer] voice recognition software. It may contain grammatical or spelling errors. Kindly contact undersigned for clarification of any documentation item in question. History of Present Illness Chief Complaint: Rectal bleeding Primary Care Provider: Eddie Pelayo MD History obtained from patient, family, and records. Patient is a fair historian. Medical history significant for chronic diastolic heart failure (EF 50 to 55%, TTE 2020), A. fib on Eliquis, chronic LBBB, valvular heart disease (moderate MR/TR, trace AR), pulmonary hypertension, hypertension, hyperlipidemia, colon cancer status post surgery status post incomplete chemotherapy, L breast cancer status post surgery/chemotherapy/tamoxifen Rx, mild dementia. Last confinement September 2020 for hematemesis and epistaxis. Patient noted to noted to have rectal bleeding 6 months ago. Colonoscopy recommended by outpatient provider. Patient unable to complete preparation. Bleeding stopped and patient eventually resumed anticoagulation. Patient noted bloody bowel movements at home today. No abdominal pain, no chest pain, no shortness of breath, no headache symptoms. Patient mentioned symptoms to sales service representative during outpatient appointment today. Patient directed to ER for evaluation. Medical History as above 2019 EGD showed hiatal hernia 2019 colonoscopy showed internal and external hemorrhoids, malignant tumor at hepatic flexure, ascending colon lipoma Surgical History : Knee surgeries, left modified radical mastectomy, cholecystectomy, MULU/BSO, partial colectomy with anastomosis Family History : Heart disease Personal/Social history : Non-smoker, no EtOH intake, lives with Allergies Allergy/AdvReac Type Severity Reaction Status Date / Time loteprednol [From Lotemax] Allergy edema , Verified 08/30/22 19:42 hives amoxicillin [From Augmentin] AdvReac Intermediate lower abd Verified 08/30/22 19:42 pain, spasm clavulanic acid AdvReac Intermediate lower abd Verified 08/30/22 19:42 [From Augmentin] pain, spasm alendronate sodium AdvReac Muscle Pain Verified 08/30/22 19:42 codeine AdvReac achiness Verified 08/30/22 19:42 lisinopril AdvReac Cough Verified 08/30/22 19:42 Home Medications Medication Instructions Recorded Confirmed Type atorvastatin 40 mg tablet (Lipitor) 40 mg PO QAM 02/17/20 08/30/22 History metoprolol succinate 25 mg 25 mg PO BID 02/17/20 08/30/22 History tablet,extended release 24 hr apixaban 2.5 mg tablet (Eliquis) 2.5 mg PO BID 09/28/20 08/30/22 History cyclosporine 0.05 % eye drops in a 1 drp OPB BID 09/28/20 08/30/22 History dropperette (Restasis) cyanocobalamin (vitamin B-12) 1,000 mcg PO QAM 04/07/22 08/30/22 History 1,000 mcg tablet (Vitamin B-12) furosemide 40 mg tablet 40 mg PO DAILY 08/30/22 08/30/22 History tramadol 50 mg tablet 50 mg PO BID PRN Pain 08/30/22 08/30/22 History Past Med/Surg History Medical History (Updated 08/31/22 @ 05:56 by Sid Gallego MD) Aortic valve sclerosis Atrial fibrillation Chronic diastolic heart failure Colon cancer hx Deep vein thrombosis "can't remember when, but it's been awhile ago"; currently on eliquis Depression Diverticular disease history Fracture of greater trochanter of left femur Hx of breast cancer 06/1999 chemo and surgical treatment Hx of fracture of left hip 02/2022, non displaced, no sx. Hyperlipidemia Hypertension Mild concentric left ventricular hypertrophy (LVH) Osteoarthritis Osteoporosis Reflux esophagitis Urine incontinence Vitamin D deficiency Surgical History History of cholecystectomy History of knee replacement right and left Hx of colonoscopy february 2020 Hx of hysterectomy Hx of mastectomy LEFT S/P partial colectomy 2019 Family History Mother Coronary heart disease Father CHF (congestive heart failure) Brother Valvular heart disease Social History Smoking Status: Never smoker Tobacco Type: Cigarettes Second Hand Exposure: No; Hx Alcohol Use: No Hx Substance Use: No Preferred Language: Bolivian Communication Ability: Effective Steam Conditioner Operator Required: No Beliefs That Will Affect Care: None marital status: Current Living Situation: Spouse Current Living Situation Comment: home with Other Information That Helps Us Care for You: No Feels Safe at Home: Yes Safety Concerns: Feels Safe At This Time Assistive Devices: Cane, Denture - Upper, Denture - Lower and Glasses Review of Systems Review of Systems: As per HPI, all other systems reviewed and negative Physical Exam Physical Exam: GENERAL: Comfortable, pleasant, oriented to day, no respiratory distress SKIN: Normal color, warm HEENT: [place] palpebral conjunctivae, no ptosis, moist buccal mucosa NECK : Supple, no tenderness CHEST : CTA, no tenderness HEART : Irregular, systolic murmur ABDOMEN: Some distention, nontender EXTREMITIES : No LE swelling/tenderness, no other conspicuous deformities noted NEUROLOGIC : Coherent, no facial asymmetry, no other gross focality Results & Data Results & Data ([facility]) Vital Signs (Past 12 Hours) Vital Signs Temp Pulse Pulse Resp BP BP Pulse Ox 08/30/22 20:55 72 11 L 100 08/30/22 20:55 168/104 H 08/30/22 20:30 86 31 H 08/30/22 20:00 92 H 20 08/30/22 19:30 85 13 91 08/30/22 19:00 86 10 L 100 08/30/22 19:00 134/109 H 08/30/22 18:41 89 8 L 99 08/30/22 18:42 76 20 171/112 H 99 08/30/22 15:59 36.1 C L 91 H 18 172/98 H 97 O2 Del Method 08/30/22 20:55 08/30/22 20:55 08/30/22 20:30 08/30/22 20:00 08/30/22 19:30 08/30/22 19:00 08/30/22 19:00 08/30/22 18:41 08/30/22 18:42 Room Air 08/30/22 15:59 Room Air Laboratory Results Laboratory Results WBC 8.67 K/ul (4.8-10.8) 08/30/22 16:59 RBC 4.89 M/uL (3.93-5.22) 08/30/22 16:59 Hgb 12.6 g/dl (12.0-16.0) 08/30/22 20:31 Hct 38.5 % (34.1-44.9) 08/30/22 20:31 MCV 83.8 fL (80.0-100.0) 08/30/22 16:59 MCH 27.2 pg (25.0-34.0) 08/30/22 16:59 MCHC 32.4 g/dL (32.0-36.0) 08/30/22 16:59 RDW Std Deviation 49.3 fL (36.4-46.3) H 08/30/22 16:59 RDW Coeff of Ingrid 16.2 % (11.5-14.5) H 08/30/22 16:59 Plt Count 250 K/uL (130-400) 08/30/22 16:59 MPV 10.1 fL (9.4-12.3) 08/30/22 16:59 PT 12.3 Seconds (9.0-12.0) H 08/30/22 16:59 INR 1.2 (0.9-1.1) H 08/30/22 16:59 APTT 27.2 Seconds (21.0-31.0) 08/30/22 16:59 PTT Ratio 1.0 08/30/22 16:59 Sodium 143 mmol/L (136-145) 08/30/22 16:59 Potassium 3.4 mmol/L (3.5-5.1) L 08/30/22 16:59 Chloride 105 mmol/L (98-107) 08/30/22 16:59 Carbon Dioxide 31 mmol/L (21-32) 08/30/22 16:59 Anion Gap 7 (3-11) 08/30/22 16:59 BUN 18 mg/dl (6-23) 08/30/22 16:59 Creatinine 1.11 mg/dl (0.6-1.2) 08/30/22 16:59 Est Cr Clr Drug Dosing 38.4 ml/min 08/30/22 16:59 Est GFR ( Amer) 52.4 ml/min 08/30/22 16:59 Est GFR (Non-Af Amer) 45.2 ml/min 08/30/22 16:59 BUN/Creatinine Ratio 16.2 (10-20) 08/30/22 16:59 Glucose 94 mg/dl (70-99(Fasting)) 08/30/22 16:59 Calcium 9.5 mg/dl (8.5-10.1) 08/30/22 16:59 Magnesium 1.8 mg/dl (1.7-2.4) 08/30/22 16:59 Total Bilirubin 0.9 mg/dl (0.2-1.0) 08/30/22 16:59 AST 23 U/L (13-39) 08/30/22 16:59 ALT 19 U/L (7-52) 08/30/22 16:59 Alkaline Phosphatase 173 U/L (34-104) H 08/30/22 16:59 Total Protein 7.3 gm/dl (6.0-8.3) 08/30/22 16:59 Albumin 3.9 gm/dl (3.4-5.0) 08/30/22 16:59 Globulin 3.4 gm/dl (2.5-4.0) 08/30/22 16:59 Albumin/Globulin Ratio 1.1 (0.9-2) 08/30/22 16:59 SARS-CoV-2, RNA, NAAT NEGATIVE (NEGATIVE) 08/30/22 18:40 Blood Type A Positive 08/30/22 17:00 Antibody Screen NEGATIVE 08/30/22 17:00 Diagnostic Findings EKG as per my interpretation :Rate 85, A. fib, LAD, LAFB, LBBB
[2022-08-30] MEDS ORDERED: ACETAMINOPHEN 325 MG TAB PO PRN (23:35)
[2022-08-30] MEDS ORDERED: traMADol HCL 50 MG TABLET PO PRN (23:35)
[2022-08-31 07:01] LABS: Basophils # (auto) 0.05 K/uL (0-0.2); Basophils % (auto) 0.6 %; Eosinophils # (auto) 0.11 K/uL (0-0.50); Eosinophils % (auto) 1.4 %; Hematocrit (blood only) 37.5 % (34.1-44.9); Hemoglobin 12.5 g/dl (12.0-16.0); Immature Granulocytes # (auto) 0.03 K/uL (0.00-0.02); Immature Granulocytes % (auto) 0.4 %; Lymphocytes # (auto) 1.55 K/uL (1.2-3.4); Lymphocytes % (auto) 19.3 %; Mean Corpuscular Hemoglobin 27.2 pg (25.0-34.0); Mean Corpuscular Hgb Conc 33.3 g/dL (32.0-36.0); Mean Corpuscular Volume 81.7 fL (80.0-100.0); Mean Platelet Volume 10.6 fL (9.4-12.3); Monocytes # (auto) 0.51 K/uL (0.24-0.82); Monocytes % (auto) 6.3 %; Platelet Count 224 K/uL (130-400); RDW Coefficient of Variation 16.2 % (11.5-14.5); RDW Standard Deviation 47.7 fL (36.4-46.3); Red Blood Count 4.59 M/uL (3.93-5.22); White Blood Count 8.05 K/ul (4.8-10.8)
[2022-08-31] MEDS ORDERED: Flu Vaccine-High Dose (Fluzone-HD) PF 65+ 0.7mL SYR IM ONE (09:00)
--- NOTE | 2022-08-31 09:01 | Electrocardiogram Report ---
Test Reason : Blood Pressure : / mmHG Vent. Rate : 087 BPM Atrial Rate : 083 BPM P-R Int : 000 ms QRS Dur : 142 ms QT Int : 426 ms P-R-T Axes : 000 -34 128 degrees QTc Int : 512 ms Poor data quality, interpretation may be adversely affected Atrial fibrillation Left axis deviation Left bundle branch block Abnormal ECG When compared with ECG of 30-SEP-2020 06:50, No significant change Confirmed by Rajiv Quarles ([id number]) on 08/31/2022 9:00:50 AM Referred By: Eddie Pelayo Confirmed By:Rajiv Quarles
[2022-08-31] MEDS: ATORVASTATIN 40 MG TAB PO SCH (09:19)
[2022-08-31] MEDS: METOPROLOL SUCC 25MG EXT REL TAB PO SCH ×2 (09:20→21:23)
--- NOTE | 2022-08-31 12:14 | Gastrointestinal Consultation ---
Date of Consultation August 31, 2022 Assessment & Plan (1) Bright red rectal bleeding: (2) History of colon cancer: Patient is an 87 years old female with past medical histories of Afib on Eliquis, colon cancer status post hemicolectomy, chemotherapy, left breast cancer, currently admitted for rectal bleeding prior to admission. Since admission she has not had any more bowel movements, blood count has also remained normal with also normal BUN. Exam today is benign without abdominal tenderness, abdomen is soft, no guarding and bowel sounds present. She is tolerating a clear liquid diet well without nausea or vomiting. Suspect rectal bleeding may be related to hemorrhoids which she does have as noted on prior colonoscopy. Would defer any repeat endoscopic procedures at this time given no gross signs of GI bleeding since admission and normal blood counts. Would monitor her for any further symptoms of GI bleed, advance diet as tolerated, GI will sign off but please recall as needed. Supervising Physician Co-Signing Physician Notes I have personally seen and examined the patient with TIFFANY Ross. Her note reflects my exam and findings. I agree with her impression and plan. Stable H/H. Most c/w rectal outlet bleeding. Beto Correa M.D. History of Present Illness Reason for Consultation: Lower GI bleed Requesting Physician: Dr. Len Montez Attending Physician: Dr. Beto Correa History of Present Illness Pt is a 87 yo female w PMHx of chronic diastolic heart failure (EF 50 to 55%, TTE 2020), A. fib on Eliquis, chronic LBBB, valvular heart disease (moderate M R/TR, trace AR), pulmonary hypertension, hypertension, hyperlipidemia, colon cancer s/p hemicolectomy in 02/2020, L breast cancer status post surgery/chemotherapy/tamoxifen Rx, mild dementia. She was taken to the ED yesterday for evaluation as she was noted to have bloody bowel movement yesterday. Patient has dementia, she is oriented mostly to herself, time but not place. States that she does not remember the events prior to her admission. Chart has been reviewed. Labs showed that she has no leukocytosis, blood count has been normal, BUN also normal. INR 1.2. No abdominal imaging studies were completed. Since admission patient has not had any more bowel movements. She denies any abdominal pain, nausea or vomiting symptoms. Of note, her last EGD was in 2020, noted to have hiatal hernia. Last colonoscopy in 2019 during which she was diagnosed with a colon cancer. At that time she was noted to have external hemorrhoids during her exam. . Allergies Allergy/AdvReac Type Severity Reaction Status Date / Time loteprednol [From Lotemax] Allergy edema , Verified 08/30/22 19:42 hives amoxicillin [From Augmentin] AdvReac Intermediate lower abd Verified 08/30/22 19:42 pain, spasm clavulanic acid AdvReac Intermediate lower abd Verified 08/30/22 19:42 [From Augmentin] pain, spasm alendronate sodium AdvReac Muscle Pain Verified 08/30/22 19:42 codeine AdvReac achiness Verified 08/30/22 19:42 lisinopril AdvReac Cough Verified 08/30/22 19:42 Home Medications Medication Instructions Recorded Confirmed Type atorvastatin 40 mg tablet (Lipitor) 40 mg PO QAM 02/17/20 08/30/22 History metoprolol succinate 25 mg 25 mg PO BID 02/17/20 08/30/22 History tablet,extended release 24 hr apixaban 2.5 mg tablet (Eliquis) 2.5 mg PO BID 09/28/20 08/30/22 History cyclosporine 0.05 % eye drops in a 1 drp OPB BID 09/28/20 08/30/22 History dropperette (Restasis) cyanocobalamin (vitamin B-12) 1,000 mcg PO QAM 04/07/22 08/30/22 History 1,000 mcg tablet (Vitamin B-12) furosemide 40 mg tablet 40 mg PO DAILY 08/30/22 08/30/22 History tramadol 50 mg tablet 50 mg PO BID PRN Pain 08/30/22 08/30/22 History Patient History Medical History Aortic valve sclerosis Atrial fibrillation Chronic diastolic heart failure Colon cancer hx Deep vein thrombosis "can't remember when, but it's been awhile ago"; currently on eliquis Depression Diverticular disease history Fracture of greater trochanter of left femur Hx of breast cancer 06/1999 chemo and surgical treatment Hx of fracture of left hip 02/2022, non displaced, no sx. Hyperlipidemia Hypertension Mild concentric left ventricular hypertrophy (LVH) Osteoarthritis Osteoporosis Reflux esophagitis Urine incontinence Vitamin D deficiency Surgical History History of cholecystectomy History of knee replacement right and left Hx of colonoscopy february 2020 Hx of hysterectomy Hx of mastectomy LEFT S/P partial colectomy 2019 Family History Mother Coronary heart disease Father CHF (congestive heart failure) Brother Valvular heart disease Social History Smoking Status: Never smoker Tobacco Type: Cigarettes Second Hand Exposure: No; Hx Alcohol Use: No Hx Substance Use: No Preferred Language: Nigerien Communication Ability: Effective Dog License Officer Supervisor Required: No Beliefs That Will Affect Care: None marital status: Current Living Situation: Spouse Current Living Situation Comment: home with Other Information That Helps Us Care for You: No Feels Safe at Home: Yes Safety Concerns: Feels Safe At This Time Assistive Devices: Cane Review of Systems Review of Systems: All systems reviewed & are unremarkable except as noted in HPI & below Physical Exam Constitutional: WD/WN, vitals as above well groomed, cooperative and comfortable Eyes: PERRL, conjunctivae normal, anicteric sclerae ENMT: external ear and nose normal, oropharynx normal Respiratory: normal respiratory effort, lungs clear to auscultation Cardiovascular: RRR, no murmur, no edema Gastrointestinal (Abdomen): normal bowel sounds, soft, nontender, no hepatosplenomegaly Skin: no rashes, warm and dry no jaundice Psychiatric: A+Ox3, euthymic affect Lymphatic: no lymphedema Results & Data ([facility]) Vital Signs (Past 12 Hours) Vital Signs Temp Pulse Pulse Resp BP BP Pulse Ox 08/31/22 11:45 36.6 C 78 20 169/81 H 97 08/31/22 07:49 36.7 C 79 20 145/90 H 96 08/31/22 03:47 79 08/31/22 03:46 79 08/31/22 03:29 36.3 C L 76 20 155/88 H 97 O2 Del Method 08/31/22 11:45 Room Air 08/31/22 07:49 Room Air 08/31/22 03:47 08/31/22 03:46 08/31/22 03:29 Room Air
--- NOTE | 2022-08-31 21:10 | Hospitalist Progress Note ---
Date of Service August 31, 2022 Assessment & Plan (1) Bright red rectal bleeding: Plan: 1) Acute lower GI bleeding: Plan: Painless L GIB hx colon cancer status post surgery status post incomplete chemotherapy hx Eliquis anticoagulation for A. fib no more blledding today hb stable 'seen by GI possible hemorrhoidal bleeding GI signed off will monitor (2) Chronic anticoagulation: Plan: Eliquis on hold for now (3) History of colon cancer: Plan: s/p surgery and incomplete chemo (4) CKD (chronic kidney disease), stage III: Plan: will follow labs (5) Hypertension: Plan: will monitor (6) Hyperlipidemia: Plan: ON statin (7) Chronic diastolic heart failure: Plan: valvular heart disease (moderate MR/TR, trace AR) pulmonary hypertension (8) Breast cancer: Plan: L breast cancer status post surgery/chemotherapy/tamoxifen Rx, in re (9) Dementia: Plan: Mild Admission and Anticipated Discharge Date Admission Date: August 30, 2022 Subjective Patient sitting on the chair and eating dinner son and in room no more episodes of bleeding denies chest pain or sob afebrile Review of Systems Review of Systems: ROS unremarkable Physical Exam Neck: normal visual inspection Respiratory: normal respiratory effort, lungs clear to auscultation Cardiovascular: RRR, no murmur, no edema Gastrointestinal (Abdomen): normal bowel sounds, soft, nontender, no hepatosplenomegaly Skin: no rashes, warm and dry Neurologic: Alert and oriented No facial droop speech clear obeys commands moves extremities Results & Data Results & Data ([facility]) Vital Signs (Past 12 Hours) Vital Signs Temp Pulse Resp BP BP Pulse Ox O2 Del Method 08/31/22 20:19 36.6 C 78 18 145/79 H 99 Room Air 08/31/22 14:42 36.6 C 65 18 120/72 95 Room Air 08/31/22 11:45 36.6 C 78 20 169/81 H 97 Room Air (1) Hypertension Hypertension type: essential hypertension Qualified Code(s): I10 - Essential (primary) hypertension (2) Hyperlipidemia Hyperlipidemia type: unspecified Qualified Code(s): E78.5 - Hyperlipidemia, unspecified
[2022-09-01 06:05] LABS: Basophils # (auto) 0.04 K/uL (0-0.2); Basophils % (auto) 0.6 %; Eosinophils # (auto) 0.15 K/uL (0-0.50); Eosinophils % (auto) 2.1 %; Hematocrit (blood only) 35.1 % (34.1-44.9); Hemoglobin 11.4 g/dl (12.0-16.0); Immature Granulocytes # (auto) 0.02 K/uL (0.00-0.02); Immature Granulocytes % (auto) 0.3 %; Lymphocytes # (auto) 1.92 K/uL (1.2-3.4); Mean Corpuscular Hemoglobin 26.9 pg (25.0-34.0); Mean Corpuscular Hgb Conc 32.5 g/dL (32.0-36.0); Mean Corpuscular Volume 82.8 fL (80.0-100.0); Mean Platelet Volume 10.1 fL (9.4-12.3); Monocytes # (auto) 0.49 K/uL (0.24-0.82); Monocytes % (auto) 6.9 %; Neutrophils # (auto) 4.48 K/uL (1.4-6.5); Neutrophils % (auto) 63.1 %; Platelet Count 202 K/uL (130-400); RDW Coefficient of Variation 15.9 % (11.5-14.5); RDW Standard Deviation 48.4 fL (36.4-46.3); Red Blood Count 4.24 M/uL (3.93-5.22)
[2022-09-01 06:35] LABS: BUN Creatinine Ratio 13.5 (10-20); Calcium 8.7 mg/dl (8.5-10.1); Creatinine Clr Calc Pharmacy 37.5 ml/min; Est GFR (African American) 52.4 ml/min; Est GFR (Non-African American) 45.2 ml/min; Magnesium 1.7 mg/dl (1.7-2.4); Potassium 3.5 mmol/L (3.5-5.1)
[2022-09-01] MEDS: METOPROLOL SUCC 25MG EXT REL TAB PO SCH ×2 (09:04→19:46)
[2022-09-01] MEDS: ATORVASTATIN 40 MG TAB PO SCH (09:05)
--- NOTE | 2022-09-01 18:45 | Hospitalist Progress Note ---
Date of Service September 01, 2022 Assessment & Plan (1) Bright red rectal bleeding: Plan: 1) Acute lower GI bleeding: Plan: Painless L GIB hx colon cancer status post surgery status post incomplete chemotherapy hx Eliquis anticoagulation for A. fib no more bledding today hb stable f/u labs in am and if stable can discharge home 'seen by GI possible hemorrhoidal bleeding GI signed off will monitor (2) Chronic anticoagulation: Plan: Eliquis on hold for now (3) History of colon cancer: Plan: s/p surgery and incomplete chemo (4) CKD (chronic kidney disease), stage III: Plan: will follow labs (5) Hypertension: Plan: will monitor (6) Hyperlipidemia: Plan: ON statin (7) Chronic diastolic heart failure: Plan: valvular heart disease (moderate MR/TR, trace AR) pulmonary hypertension (8) Breast cancer: Plan: L breast cancer status post surgery/chemotherapy/tamoxifen Rx, in re (9) Dementia: Plan: Mild Admission and Anticipated Discharge Date Admission Date: August 30, 2022 Subjective Lying in bed comfortably says ambulated in hallway in room didnot moved her bowels today so don't know whether she still has blood in stools likes to go home after bowel movement no nausea eating ok Review of Systems Review of Systems: ROS unremarkable Physical Exam Neck: normal visual inspection Respiratory: normal respiratory effort, lungs clear to auscultation Cardiovascular: RRR, no murmur, no edema Gastrointestinal (Abdomen): normal bowel sounds, soft, nontender, no hepatosplenomegaly Neurologic: alert and oriented speech clear no facial droop moves extremities Results & Data Results & Data ([facility]) Vital Signs (Past 12 Hours) Vital Signs Temp Pulse Pulse Resp BP BP Pulse Ox 09/01/22 16:21 79 09/01/22 15:18 36.6 C 73 20 151/86 H 95 09/01/22 13:00 72 09/01/22 11:21 36.4 C L 72 19 170/73 H 95 09/01/22 07:26 36.4 C L 74 18 145/75 H 98 O2 Del Method 09/01/22 16:21 09/01/22 15:18 Room Air 09/01/22 13:00 09/01/22 11:21 Room Air 09/01/22 07:26 Room Air (1) Hypertension Hypertension type: essential hypertension Qualified Code(s): I10 - Essential (primary) hypertension (2) Hyperlipidemia Hyperlipidemia type: unspecified Qualified Code(s): E78.5 - Hyperlipidemia, unspecified
[2022-09-02] MEDS: METOPROLOL SUCC 25MG EXT REL TAB PO SCH (09:04)
[2022-09-02] MEDS: ATORVASTATIN 40 MG TAB PO SCH (09:04)
[2022-09-02 12:46] LABS: Hematocrit (blood only) 38.8 % (34.1-44.9); Hemoglobin 12.8 g/dl (12.0-16.0)
--- NOTE | 2022-09-02 13:07 | Hospitalist Progress Note ---
Date of Service September 02, 2022 Assessment & Plan (1) Bright red rectal bleeding: Plan: 1) Acute lower GI bleeding: Plan: Painless L GIB hx colon cancer status post surgery status post incomplete chemotherapy hx Eliquis anticoagulation for A. fib no more bledding today hb stable f/u labs in am and if stable can discharge home 'seen by GI possible hemorrhoidal bleeding GI signed off will monitor (2) Chronic anticoagulation: Plan: Eliquis on hold for now (3) History of colon cancer: Plan: s/p surgery and incomplete chemo (4) CKD (chronic kidney disease), stage III: Plan: will follow labs (5) Hypertension: Plan: will monitor (6) Hyperlipidemia: Plan: ON statin (7) Chronic diastolic heart failure: Plan: valvular heart disease (moderate MR/TR, trace AR) pulmonary hypertension (8) Breast cancer: Plan: L breast cancer status post surgery/chemotherapy/tamoxifen Rx, in re (9) Dementia: Plan: Mild Admission and Anticipated Discharge Date Admission Date: September 01, 2022 Subjective ff up for rectal bleeding, etc Results & Data Results & Data ([facility]) Vital Signs (Past 12 Hours) Vital Signs Temp Pulse Pulse Resp BP BP Pulse Ox 09/02/22 11:33 36.5 C 81 20 156/76 H 98 09/02/22 08:07 70 09/02/22 07:27 36.7 C 71 20 150/88 H 98 09/02/22 04:00 36.4 C L 88 20 122/75 98 O2 Del Method 09/02/22 11:33 Room Air 09/02/22 08:07 09/02/22 07:27 Room Air 09/02/22 04:00 Room Air (1) Hyperlipidemia Hyperlipidemia type: unspecified Qualified Code(s): E78.5 - Hyperlipidemia, unspecified (2) Hypertension Hypertension type: essential hypertension Qualified Code(s): I10 - Essential (primary) hypertension
== END 2022-09-02 15:54 | disposition home or self-care (01) | DRG 378 ==
LOC: ED 15:52 → 2N 15:52 → SUATTDRO 22:24 → 2N 23:39 → SUATTDRO 09-01 21:02